=== PATIENT | female | born 1960 | race Caucasian/White ===

== ENCOUNTER 2024-04-24 16:11 | Inpatient (IN) ==
--- OUTSIDE RECORDS SUMMARY | 2024-04-24 16:17 | External Medical Summary | Summary of Care ---
Author Name Unknown Organization [facility] Address [address] [place] [address] Phone [phone] Care Team Providers Care Geothermal Sheet Metal Worker Name Role Phone Jaylen Mcwilliams MD Primary Care Provider [phone]- [phone] Reason for Visit * Reason Comments Outpatient Testing Encounter Details Date Type Department Care Team (Late st Contact Info) Description 04/08/2024 10:30 AM EDT Laboratory Laboratory Patient Service [address] [address] [address] [employer] Other*[id number]; Dyslipidemia, goal LDL below 100 Allergies No known active allergiesdocumented as of this encounter (statuses as of 04/08/2024) Medications Medication Sig Dispensed Refills Start Date End Date Status Multiple Vitamin (MULTI VITAMIN DAILY) TABS Take by mouth. 11/09/2013 Active Lisinopril 40 MG Oral Tablet TAKE 1 TABLET BY MOUTH IN THE MORNING AND AT BEDTIME 180 Tablet 2 10/09/2023 Active hydroCHLOROthiazide 25 MG Oral Tablet (Hydrodiuril) Take 1 tablet by mouth once daily 90 Tablet 2 10/27/2023 Active Metoprolol Tartrate 25 MG Oral Tablet (Lopressor) Take 1 tablet by mouth twice daily 180 Tablet 2 10/27/2023 Active Citalopram Hydrobromide 40 MG Oral Tablet (CeleXA) Take 1 tablet by mouth in the evening 90 Tablet 2 10/27/2023 Active Rosuvastatin Calcium 20 MG Oral Tablet (Crestor)Indications: Dyslipidemia, goal LDL below 100 Take 1 Tablet by mouth in the morning. 90 Tablet 3 01/09/2024 Active Famotidine 20 MG Oral Tablet (Pepcid) Take 1 Tablet by mouth in the morning. 90 Tablet 3 03/16/2024 Active documented as of this encounter (statuses as of 04/08/2024) Active Problems Problem Noted Date Diagnosed Date Moderate episode of recurrent major depressive d isorder 09/04/2022 Mixed hyperlipidemia 03/07/2021 Mild episode of recurrent major depressive disor coleman 10/27/2019 Essential hypertension with goal blood pressure less than 140/90 10/27/2019 Obesity, Class II, BMI 35-39.9, isolated (see ac tual BMI) 03/18/2019 LALIT (generalized anxiety disorder) 03/18/2019 Gastroesophageal reflux disease without esophagi tis 04/08/2018 documented as of this encounter (statuses as of 04/08/2024) Resolved Problems Problem Noted Date Diagnosed Date Resolved Date Closed nondisplaced fracture of proximal phalanx of lesser toe of right foot 09/04/2022 12/0 02/2023 Essential hypertension with goal blood pressure less than 130/80 03/18/2019 10/27/2019 Family history of ischemic heart disease 07/24/2015 03/18/2019 documented as of this encounter (statuses as of 04/08/2024) Immunizations Name Administration Dates Next Due COVID-19 mRNA, LNP-s, No Pre serve, 2-Dose Series (Genomic Expression) 10/30/2020,10/09/2020 COVID-19, MRNA-LNP, 23-24, P F, 30 MCG/0.3 mL, 12 YRS AND ABOVE, [facility] 05/12/2023 Seasonal Influenza Virus Vac cine, Unspecified Formulation 05/02/2020 Seasonal Influenza, PF, 6 M & above, IM , (FluLaval or Fluzone) 06/10/2023,05/02/2020 TDAP (age 10 and older)(Boostrix) 09/09/2023(Def erred: Patient Refused) Zoster Vaccine Recombinant (Shingrix) 01/01/2021 ,05/02/2020 documented as of this encounter Social History Tobacco Use Types Packs/Day Years Used Date Smoking Tobacco: Never Smokeless Tobacco: Never Alcohol Use Standard Drinks/Week Comments Yes 0 (1 standard drink = 0.6 oz pur e alcohol) 2 drinks every other week PHQ-2 Answer Date Recorded PHQ Adult Total Score 11 03/25/2024 Hunger Vital Sign Answer Date Recorded Within the past 12 months, y ou worried that your food would run out before you got the money to buy more. Never true 09/23/19 24 Within the past 12 months, t he food you bought just didn't last and you didn't have money to get more. Never true 09/23/2023 Childcare Answer Date Recorded Do you feel overwhelmed with taking care of a child, family member or friend? No 09/23/2023 Does your family need help f inding childcare? (Household - for ages 0-17 years) Not on file 09/23/2023 Clothing Answer Date Recorded Have you been unable to get clothing when it was really needed? No 09/23/2023 Is your family able to get c lothes or diapers when needed? (Household - for ages 0-17 years) Not on file 09/23/2023 Personal Safety Answer Date Recorded Do you feel unsafe or have concerns for your saf ety? No 09/23/2023 Do you have concerns for you r family's safety? (Household - for ages 0-17 years) Not on file 09/23/2023 Utilities Answer Date Recorded Do you have trouble paying y our heating, water, or electric bill? No 09/23/2023 Is your family able to pay t he heat, water, or electric bill? (Household - for ages 0-17 years) Not on file 09/23/2023 Does your family have access to good internet? (Household - for ages 0-17 years) Not on file 09/23/2023 Employment Status Answer Date Recorded Are you unemployed or without regular income? No 09/23/2023 Does the household have a re gular source of income? (Household - for ages 0-17 years) Not on file 09/23/2023 Social Connections Answer Date Recorded How often do you feel lonely or isolated from those around you? Sometimes 09/23/2023 Financial Resource Strain Answer Date R ecorded Do you have any trouble payi ng for your medications, or do you think you might in the future? No 09/23/2023 Does your family have troubl e paying for medicine? (Household - for ages 0-17 years) Not on file 09/23/2023 Transportation Needs Answer Date Record ed READ ONLY Do you have troubl e getting a ride to medical visits or work? Never True 09/23/2023 Does your family have a hard time getting a ride to doctors visits? (Household - for ages 0-17 years) Not on file 09/23/2023 Has lack of transportation k ept you from medical appointments, meetings, work, or from getting things needed for daily living? Check all that apply. (Adult - for ages 18 years and over) Not on file 09/23/2023 Do you (or your family) have trouble finding or paying for a ride (transportation)? (Household - for ages 0-17 years) Not on file 09/23/2023 Housing Stability Answer Date Recorded Do you currently live in a s helter or have no steady place to sleep at night? No 09/23/2023 READ ONLY Do you think you a re at risk of becoming homeless? No 09/23/2023 Does your family worry about paying for your home or becoming homeless? (Household - for ages 0-17 years) Not on file 0 09/23/2023 Are you homeless or worried that you might be in the future? (Adult - for ages 18 years and over) Not on file Are you (or your family) alisson eless or worried that you might be in the future? (Household - for ages 0-17 years) Not on file Food Insecurity Answer Date Recorded Do you need food for this week? No 09/23/2023 Are you able to get enough f ood for your family? (Household - for ages 0-17 years) Not on file 09/23/2023 Does your family need food t his week? (Household - for ages 0-17 years) Not on file 09/23/2023 Do you always have enough fo od for your family? (Household - for ages 0-17 years) Not on file 09/23/2023 Sex and Gender Information Value Date Recorded Sex Assigned at Female 05/20/2023 10:43 AM EDT Gender Identity Female 05/20/2023 10:43 AM EDT Sexual Orientation Lesbian 05/20/2023 10 :43 AM EDT Job Start Date Occupation Industry Not on file Not on file Not on file documented as of this encounter Plan of Treatment Upcoming Encounters Date Type Department Care Team (Late st Contact Info) Description 04/08/2024 1:15 PM EDT Immunization [facility] [address] [place] [address] [place], Covid[facility] [address] [place] [address] 04/22/2024 3:00 PM EDT Telemedicine Psychology [facility] [address] [place] [phone] Fely Siddiqui LCSW [address] [place] [address] 04/29/2024 9:00 AM EDT Telemedicine Psychology [place] [place] [address] [place] [address] Fely Siddiqui LCSW [address] [place] [address] 05/06/2024 9:00 AM EDT Telemedicine Psychology [facility] [place] [address] [place] [phone] Fely Siddiqui LCSW [address] [place] [phone] 05/18/2024 9:00 AM EDT Telemedicine Psychology [facility] [place] [address] [place] [address] Fely Siddiqui LCSW [address] [place] [address] 06/01/2024 11:00 AM EST Appointment Radiology, [address] [address] 06/10/2024 9:20 AM EST Office Visit Dermatology [facility] [address] [place] [address] Mak Hazel PA-C [address] [place] [address] 06/14/2024 10:30 AM EST Office Visit Cardiology, [facility] [address] [place] [address] Guerita Morris PA-C [address] [place] [address] 06/22/2024 9:20 AM EST Office Visit Family [facility], [address] [address] Jaylen Mcwilliams MD [address] [place] [address] 08/05/2024 9:00 AM EST Office Visit Cardiology, [facility] [address] [place] [place] [address] Guerita Morris PA-C [address] [place] [address] 09/21/2024 8:00 AM EST Office Visit [address] [address] Jaylen Mcwilliams MD [address] [place] [address] 11/30/2024 1:10 PM EDT Office Visit Optometry, [address] [address] [place], Barrett Blank OD [address] [place] [address] 02/08/2025 9:00 AM EDT Nurse Only Ancillary [facility] [address] [place] [phone] [place], Nurse Annual Wellness [address] [address] Pending Results Name Type Priority Associated Diagnoses Date /Time MYCODE SUBSEQUENT ADULT Lab Routine [employer] Other*[id number] 04/08/2024 10:25 AM EDT LIPID PANEL WITH DIRECT LDL IF TG IS HIGH Lab Routine Dyslipidemia, goal LDL below 100 04/08/2024 10:25 AM EDT HEPATIC FUNCTION PANEL Lab Routine Dyslipidemia, goal LDL below 100 04/08/2024 10:25 AM EDT MYCODE SST1 Lab Routine [employer] Other*[id number] 04/08/2024 10:25 AM EDT MYCODE SST2 Lab Routine [employer] Other*[id number] 04/08/2024 10:25 AM EDT Health Maintenance Due Date Last Done Comments DTap/Tdap Vaccines (1 - Tdap) 1977 Cologuard 2003 Fecal Occult Blood Test 2003 Sigmoidoscopy 2003 Pneumococcal Vaccine: 65+ Years (1 of 1 - PCV) 2023 COVID-19 Vaccine ( season) 2024 05/12/2023, 11/05/2021, 05/15/2021, Additional history exists Influenza Vaccine (FLU shot) (#1) 2024 06/10/2023, 05/02/2020, 05/02/2020 Mammogram 05/29/2024 05/29/2023, 04/20, 04/23/2022, Additional history exists Colonoscopy 07/08/2024 07/08/2019, 10/14/2011 Colorectal Cancer Screening 07/08/2024 GFR 12/25/2024 12/26/2023, 06/21, 06/04/2022, Additional history exists Adult Wellness Visit 02/04/2025 02/05/2024 Depression Monitoring 04/06/2025 04/06/2024 , 03/25/2024, 03/09/2024, Additional history exists Albumin/Creatinine Ratio 06/04/2025 06/04/2022 Diabetes Screening 12/25/2026 12/26/2023, 1 , 06/04/2022, Additional history exists Lipid Panel 12/25/2028 12/26/2023, 06/21, 06/04/2022, Additional history exists DXA Scan 07/18/2033 07/18/2023 RETIRED - COLONOSCOPY-EVERY 5 YRS AGES 18-100 Discontinued 07/08/2019, 10/14/2011 Zoster Vaccines Completed 01/01/2021, 05/02/2020 HPV (Gardasil) Vaccine Aged Out No lo nger eligible based on patient's age to complete this topic Hepatitis B Vaccine Aged Out No longe r eligible based on patient's age to complete this topic MENINGOCOCCAL (MENACTRA/MENVEO) Aged Out No longer eligible based on patient's age to complete this topic documented as of this encounter Medical Devices Not on filedocumented as of this encounter Visit Diagnoses Diagnosis [employer] Other*[id number] Dyslipidemia, goal LDL below 100 Other and unspecified hyperlipidemia Screening mammogram for breast cancer documented in this encounter Care Teams Geothermal Sheet Metal Worker Relationship Specialty Start Date End Date Jaylen Mcwilliams MD [address] [place] [address] PCP - General Family Medicine 03/05/23 documented as of this encounter
--- OUTSIDE RECORDS SUMMARY | 2024-04-24 16:17 | External Medical Summary | Summary of Care ---
Author Name Unknown Organization [facility] Address [address] [facility] [place] [address] Phone [phone] Care Team Providers Care Haul Cane Brakeman Name Role Phone Jaylen Mcwilliams MD Primary Care Provider [phone]- [phone] Reason for Visit * Reason Onset Date Comments Order Request 03/08/2024 Encounter Details Date Type Department Care Team (Late st Contact Info) Description 03/08/2024 Telephone Pulmonary Medicine, [facility] [address] [place] [address] Jeannine Pena, [address] [facility] [place] [address] Order Request Allergies No known active allergiesdocumented as of this encounter (statuses as of 03/17/2024) Medications Medication Sig Dispensed Refills Start Date End Date Status Multiple Vitamin (MULTI VITAMIN DAILY) TABS Take by mouth. 11/09/2013 Active Lisinopril 40 MG Oral Tablet TAKE 1 TABLET BY MOUTH IN THE MORNING AND AT BEDTIME 180 Tablet 2 10/09/2023 Active hydroCHLOROthiazid e 25 MG Oral Tablet (Hydrodiuril) Take 1 tablet by mouth once daily 90 Tablet 2 10/27/2023 Active Metoprolol Tartrate 25 MG Oral Tablet (Lopressor) Take 1 tablet by mouth twice daily 180 Tablet 2 10/27/2023 Active Citalopram Hydrobromide 40 MG Oral Tablet (CeleXA) Take 1 tablet by mouth in the evening 90 Tablet 2 10/27/2023 Active Rosuvastatin Calcium 20 MG Oral Tablet (Crestor)Indicatio ns:Dyslipidemia, goal LDL below 100 Take 1 Tablet by mouth in the morning. 90 Tablet 3 01/09/2024 Active Aspirin 81 MG Oral Tablet Delayed Release Take 1 Tablet by mouth in the morning. 11/09/2013 4 Discontinued documented as of this encounter (statuses as of 03/17/2024) Active Problems Problem Noted Date Diagnosed Date [...] as of this encounter (statuses as of 03/17/2024) Resolved Problems Problem Noted Date Diagnosed Date Resolved Date Closed nondisplaced fracture of proximal phalanx of lesser toe of right foot 09/04/2022 12/0 02/2023 Essential hypertension with goal blood pressure less than 130/80 03/18/2019 10/27/2019 Family history of ischemic heart disease 07/24/2015 03/18/2019 documented as of this encounter (statuses as of 03/17/2024) Immunizations Name Administration Dates Next Due COVID-19 mRNA, LNP-s, No Pre serve, 2-Dose Series (Xinguodu) 10/30/2020,10/09/2020 COVID-19, MRNA-LNP, 23-24, P F, 30 MCG/0.3 mL, 12 YRS AND ABOVE, IM ([facility]) 05/12/2023 Seasonal Influenza Virus Vac cine, Unspecified [...] Answer Date Recorded PHQ Adult Total Score 5 03/09/2024 Hunger Vital Sign Answer Date Recorded Within [...] on file documented as of this encounter Miscellaneous Notes * Telephone Encounter - Marisol Amin OSA - 03/17/2024 8:10 PM EDT Refaxed office note, orders, and demographics to [facility]. * Telephone Encounter - Lorena Crowder OSA - 03/17/2024 3:42 PM EDT Patient call in stating that [facility] Has not receive patient orders for her sleep study . She ask if this can be fax again to them. Please advice Thank you scheduling services * Telephone Encounter - Annette Church OSA - 03/08/2024 1:11 PM EDT Faxed demographics, Orders, and progress notes to [facility] Waiting to hear back about an appt documented in this encounter Plan of Treatment Upcoming Encounters Date Type Department Care Team (Late st Contact Info) Description 03/25/2024 9:00 AM EDT Telemedicine Psychology [facility] Core[facility] [address] [place] [phone] Fely Siddiqui LCSW [address] [facility] [place] [address] 03/31/2024 8:30 AM EDT Office Visit Cardiology, [facility] 132 [facility] [place] [address] Guerita Morris PA-C [address] [place] [address] 04/06/2024 11:00 AM EDT Telemedicine Psychology [facility] [address] [place] [phone] Fely Siddiqui, BILINGUAL ADMINISTRATIVE ASSISTANT [address] [place], [place] [phone] 06/01/2024 11:00 AM EST Appointment Radiology, [address] [address] 06/10/2024 9:20 AM EST Office Visit Dermatology [facility] [address] [place] [address] Mak Hazel PA-C [address] [place] [address] 06/22/2024 9:20 AM EST Office Visit [address] [address] Jaylen Mcwilliams MD [address] [place] [address] 09/21/2024 8:00 AM EST Office Visit [address] [address] Jaylen Mcwilliams MD [address] [place] [address] 11/30/2024 1:10 PM EDT Office Visit Optometry, [place] [address] [place], [place] [phone] Barrett Kulkarni Jr., OD [address] [place] [address] 02/08/2025 9:00 AM EDT Nurse Only Ancillary [facility] [address] [place] [address] Jessy Nurse Annual Wellness [facility] [address] [place] [address], [place] [address] Health Maintenance Due Date Last Done Comments DTap/Tdap Vaccines (1 - Tdap) 1977 Cologuard 2003 Fecal Occult Blood Test 2003 Sigmoidoscopy 2003 Pneumococcal Vaccine: 65+ Years (1 of 1 - PCV) 2023 COVID-19 Vaccine ( - 2022- season) 2023 05/12/2023, 11/05/2021, 05/15/2021, Additional history exists Influenza Vaccine (FLU shot) (#1) 2024 06/10/2023, 05/02/2020, 05/02/2020 Mammogram 05/29/2024 05/29/2023, 04/20, 04/23/2022, Additional history exists Colonoscopy 07/08/2024 07/08/2019, 10/14/2011 Colorectal Cancer Screening 07/08/2024 GFR 12/25/2024 12/26/2023, 06/21, 06/04/2022, Additional history exists Adult Wellness Visit 02/04/2025 02/05/2024 Depression Monitoring 03/09/2025 03/09/2024 , 02/17/2024, 02/05/2024, Additional history exists Albumin/Creatinine Ratio 06/04/2025 06/04/2022 [...] Not on filedocumented as of this encounter Care Teams Haul Cane Brakeman Relationship Specialty Start Date End Date Jaylen Mcwilliams MD [address] [place] [address] PCP - General Family Medicine 03/05/23 documented as of this encounter
--- OUTSIDE RECORDS SUMMARY | 2024-04-24 16:17 | External Medical Summary ---
Author Name Unknown Address Unknown Organization K01:[facility] - [address] [place] [address] Laboratory Report Ordering Provider Test Date Status TASHA CASTELAN 04/08/2024 10:25:05 Final Observation Date Value Abnormality Reference (Units ) Status MYCODE SPECIMEN-SST 04/08/2024 10:25:05 Freezing of extracted DNA, whole blood and/or serum. Final Performing Location LAB[facility]ATORY [facility] - [address] [place] [address]
--- OUTSIDE RECORDS SUMMARY | 2024-04-24 16:17 | External Medical Summary | Summary of Care ---
Author Name Unknown Organization [facility] Address [address] [place] [address] Phone [phone] Care Team Providers Care Hide Stretcher Hand Name Role Phone Jaylen Mcwilliams MD Primary Care Provider [phone]- [phone] Reason for Visit * Reason Comments Follow Up Encounter Details Date Type Department Care Team (Late st Contact Info) Description 04/06/2024 11:00 AM EDT Telemedicine Psychology Cameron Coreas [address] [place] [address] Fely Siddiqui, MEDICAL APPOINTMENT CLERK [address] [facility] [place] [address] Adjustment disorder with mixed anxiety and depressed mood* Allergies No known active allergiesdocumented as of this encounter (statuses as of 04/06/2024) Medications Medication Sig Dispensed Refills Start Date [...] as of this encounter (statuses as of 04/06/2024) Active Problems Problem Noted Date Diagnosed Date Moderate episode of recurrent major depressive d isorder 09/04/2022 Mixed hyperlipidemia 03/07/2021 Mild episode of recurrent major depressive disor coleman 10/27/2019 Essential hypertension with goal blood pressure less than 140/90 10/27/2019 Obesity, Class II, BMI 35-39.9, isolated (see ac tual BMI) 03/18/2019 TONY (generalized anxiety disorder) 03/18/2019 Gastroesophageal reflux disease without esophagi tis 04/08/2018 documented as of this encounter (statuses as of 04/06/2024) Resolved Problems Problem Noted Date Diagnosed Date Resolved Date Closed nondisplaced fracture of proximal phalanx of lesser toe of right foot 09/04/2022 12/0 02/2023 Essential hypertension with goal blood pressure less than 130/80 03/18/2019 10/27/2019 Family history of ischemic heart disease 07/24/2015 03/18/2019 documented as of this encounter (statuses as of 04/06/2024) Immunizations Name Administration Dates Next Due COVID-19 mRNA, LNP-s, No Pre serve, 2-Dose Series ([employer]) 10/30/2020,10/09/2020 COVID-19, MRNA-LNP, 23-24, P F, 30 MCG/0.3 mL, 12 YRS AND ABOVE, IM ([facility]) 05/12/2023 Seasonal Influenza Virus Vac cine, Unspecified [...] on file documented as of this encounter Progress Notes * Fely Siddiquis, MEDICAL APPOINTMENT CLERK - 04/06/2024 10:54 AM EDT Patient location: HOME. I was not in a hospital or clinic location. After connecting through televideo, patient was verified with two unique identifiers. Patient (or authorized legal authorization representative) was then informed that this was a Telemedicine visit and being conducted confidentially over secure lines. Methods to assure confidentiality were taken. Patient acknowledged consent and understanding of privacy and security of the Telemedicine visit. The patient agreed to participate. My office door was closed. No one else was in the room with me. I informed the patient that I have reviewed their record in [facility] and presented the opportunity for them to ask any questions regarding the visit today. The patient agreed to participate. Provider reviewed elements of Outpatient Services Description including limits of confidentiality, how to contact the department, risks and benefits of treatment and consent for treatment. Start Time: 11 am Stop Time: 11:54 Total direct [id number] time: 54 min Confirm patient's location (and address if different from the home address documented in [facility]) at the time of this appointment: home ADULT THERAPY PROGRESS NOTE Psychology Cameron Coreas [address] [place] [address] 04/06/2024 10:54 AM TYPE OF VISIT: Individual DIAGNOSIS: Adjustment DO REASON FOR FOLLOW-UP: Individual therapy Session #: 9 SESSION FOCUS: recovering from covid infection SESSION SUMMARY/NOTES: During this session, Deb discussed that she has been caring for self with having covid. She shared she has been reading through [employer] and finding it helpful. Deb talked about wanting to move forward with re-connecting with her family relationships. She was helped to explore her role in that and keeping healthy boundaries. Patient was engaged with supportive techniques such as reassurance, normalization, encouragement, validation and reflective listening.A therapeutic holding environment to allow for optimal processing of emotions was maintained throughout which allowed patient to discuss ongoing stressors. PROGRESS TOWARDS GOALS: reading self help; talking with mother daily Objective Measures: Myc Visit Accident Related Question Question 04/06/2024 9:49 AM EDT - Filed by Patient Is this visit related to an accident? (i.e work, motor vehicle) No Tony-7 Question 04/06/2024 11:04 AM EDT - Filed by Fely Siddiqui LCSW Over the last 2 weeks, how often have you been bothered by the following problems? Feeling nervous, anxious, or on edge Several days Not being able to stop or control worrying Several days Worrying too much about different things Several days Trouble relaxing Not at all Being so restless that is hard to sit still Not at all Becoming easily annoyed or irritable Several days Feeling afraid as if something awful might happen Not at all Total score of all questions (range: 0 - 21) 4 (Minimal) Phq9-Depression Question 04/06/2024 11:06 AM EDT - Filed by Fely Siddiqui LCSW Over the last two weeks, how often have you been bothered by any of the following problems? Little interest or pleasure in doing things Several days Feeling down, depressed or hopeless Several days Over the last two weeks, how often have you been bothered by any of the following problems? Trouble falling or staying asleep, or sleeping too much Several days Feeling tired or having little energy Nearly everyday Poor appetite or overeating Several days Feeling bad about yourself - or that you are a failure, or have let yourself or your family down Several days Trouble concentrating on things, such as reading the newspaper or watching television Nearly everyday Moving or speaking so slowly that other people could have noticed. Or the opposite - being so fidgety or restless that you have been moving around a lot more than usual Several days Thoughts that you would be better off , or of hurting yourself Not at all Question 1 score (range: 0 - 3) 1 Question 2 score (range: 0 - 3) 1 Question 3 score (range: 0 - 3) 1 Question 4 score (range: 0 - 3) 3 Question 5 score (range: 0 - 3) 1 Question 6 score (range: 0 - 3) 1 Question 7 score (range: 0 - 3) 3 Question 8 score (range: 0 - 3) 1 Question 9 score (range: 0 - 3) 0 Sum of all PHQ9 questions. (range: 0 - 27) 12 (Moderate Depression) C-Ssrs [id number] Last Contact Question 04/06/2024 11:06 AM EDT - Filed by Fely Siddiqui LCSW Have you wished you were or wished you could go to sleep and not wake up? No Have you actually had any thoughts of killing yourself? No Have you done anything, started to do anything, or prepared to do anything to end your life? No INTERVENTION: Cognitive Behavioral Therapy (CBT) and Supportive Therapy PATIENT EDUCATION: Verbal & written MENTAL STATUS AND BEHAVIORAL OBSERVATIONS: Appearance: within normal limits Behavior: appropriate, cooperative, and pleasant Speech: normal pitch, normal rate, and normal volume Mood: good Affect: appropriate Thought Process: within normal limits Thought Content: Delusions: No Hallucinations: No Obsessions: No Homicidal: No Suicidal: No Sensorium: alert and oriented to person, place, time and situation Cognition: grossly intact Insight: fair Judgment: fair Suicide/Homicidal Assessment Level of Risk No Risk Identified Protective Factors Hopeful attitude and or beliefs;Access to appropriate services;Identifies reasons for living;Help-Seeking Behaviors;Cares about job/school Risk Factors History of Depression;Age;History of Trauma;Anxiety Crisis Plan: see Crisis Plan in Treatment Plan Jitendra Safety Plan Creation Date: 03/09/24 Last Update Date: 03/25/24 Step 1: Warning signs: Warning Signs emotional cry walk away Step 2: Internal coping strategies - Things I can do to take my mind off my problems without contacting another person: Strategies read go out in sun relax/avoid breathing Step 3: People and social settings that provide distraction: Places outdoors Step 4: People whom I can ask for help during a crisis: Name Contact Information friend- Opal spouse Howard Step 5: Professionals or agencies I can contact during a crisis: Clinician/Agency Name Phone Emergency Contact PCP [phone] Counselor [phone] Local Emergency Department Emergency Department Address Emergency Department Phone [facility] Suicide Prevention Lifeline Phone: Call or Text 714 Crisis Text Line: Text HOME to 730464 Step 6: Making the environment safer (plan for lethal means safety): Did not identify any lethal methods Optional: What is most important to me and worth living for?: Me; my future Jitendra Safety Plan. Yudy Mxi and Gabe Carreon. Used with permission of the authors. FOLLOW-UP PLAN: Return: 2 weeks Action Plan: 1. Continue Individual Therapy 2. Continue medication management with PCP. Treatment plan reviewed with the patient. Patient voices understanding and concurs with plan. Review due 06/02/24 Fely Siddiqui LCSW Division of Psychiatry & Behavioral Medicine [facility] [phone] documented in this encounter Plan of Treatment Upcoming Encounters Date Type Department Care Team (Late st Contact Info) Description 04/08/2024 1:15 PM EDT Immunization [facility] Singh Galo [address] [place] [address] Tete Galo [facility] [address] [place] [address] 04/22/2024 3:00 PM EDT Telemedicine Psychology Cameron Coreas [address] [place] [address] Fely Siddiqui LCSW [address] [place] [address] 04/29/2024 9:00 AM EDT Telemedicine Psychology Cameron Coreas [address] [place] [address] Fely Siddiqui LCSW [address] [place] [address] 05/06/2024 9:00 AM EDT Telemedicine Psychology Cameron Coreas [address] [place] [address] Fely Siddiqui LCSW 9 [place] [address] 05/18/2024 9:00 AM EDT Telemedicine Psychology [facility], [place] [address] [place] [address] Fely Siddiqui, MEDICAL APPOINTMENT CLERK [address] [place] [address] 06/01/2024 11:00 AM EST Appointment Radiology, [address] [address] 06/10/2024 9:20 AM EST Office Visit Dermatology [address] [address] Mak Hazel PA-C [address] [place] [address] 06/22/2024 9:20 AM EST Office Visit [address] [address] Jaylen Mcwilliams MD [address] [place] [address] 09/21/2024 8:00 AM EST Office Visit [address] [address] Jaylen Mcwilliams MD [address] [place] [address] 11/30/2024 1:10 PM EDT Office Visit Optometry, [place] [address] [place], [place] [id number] Barrett Kulkarni Jr., OD [address] [place], [place] [id number] 02/08/2025 9:00 AM EDT Nurse Only Ancillary [address] [address] Jessy, Nurse [address] [place] [address] Health Maintenance Due Date Last Done Comments [...] as of this encounter Visit Diagnoses Diagnosis Adjustment disorder with mixed anxiety and depressed mood- Primary Screening mammogram for breast cancer documented in this encounter Care Teams Hide Stretcher Hand Relationship Specialty Start Date End Date Jaylen Mcwilliams MD [address] [place] [address] PCP - General Family Medicine 03/05/23 documented as of this encounter
--- OUTSIDE RECORDS SUMMARY | 2024-04-24 16:17 | External Medical Summary ---
Author Name Unknown Address Unknown Organization K01:[facility] - [address] [facility] [place] [address] Laboratory Report Ordering Provider Test Date Status LORIE MCCRACKEN 04/08/2024 10:25:05 Final Observation Date Value Abnormality Reference (Units ) Status Triglyceride 04/08/2024 10:25:05 87 <=174 ( mg/dL) Final Triglyceride Reference Range s (mg/dL):
<150 Acceptable
150-174 Borderline high
175-499 High
>=500 Very high Cholesterol 04/08/2024 10:25:05 126 <200 (mg /dL) Final Total Cholesterol Reference Ranges (mg/dL):
<200 Desirable
200-239 Borderline high
>=240 High HDL 04/08/2024 10:25:05 43 Below low normal >49 (mg/dL) Final HDL Cholesterol Reference Ra nges (mg/dL):
>=60 High (Desirable)
<50 Low (Undesirable) For Females
<40 Low (Undesirable) For Males NON-HDL CHOLESTEROL 04/08/2024 10:25:05 83 <=159 (mg/dL) Final Non-HDL Cholesterol Referenc e Range (mg/dL):
<100 Target level for high risk ASCVD patient
<130 Optimal for general population
130-159 Near optimal for general population
160-189 Borderline High
190-219 High
>=220 Very High LDL, (calculated) 04/08/2024 10:25:05 66 <= 129 (mg/dL) Final LDL Cholesterol Reference Ra nges (mg/dL):
<70 Target level for high risk ASCVD patient
<100 Optimal for general population
100-129 Near optimal for general population
130-159 Borderline high
160-189 High
>=190 Very high Performing Location LABORATORY [facility] - [address] [place] [address]
--- OUTSIDE RECORDS SUMMARY | 2024-04-24 16:17 | External Medical Summary | Summary of Care ---
Author Name Unknown Organization [facility] Address [address] [facility] [place] [address] Phone [phone] Care Team Providers Care Structural Iron Worker Name Role Phone Jaylen Mcwilliams MD Primary Care Provider +1- [phone] Reason for Visit * Reason Comments Outpatient Testing Encounter Details Date Type Department Care Team (Late st Contact Info) Description 04/08/2024 1:30 PM EDT Laboratory Laboratory, [facility] [address] [facility] [place] [address] [facility] [address] [facility] [place] [address] Arrived Allergies No known active allergiesdocumented as of [...] mRNA, LNP-s, No Pre serve, 2-Dose Series ([employer]) 10/30/2020,10/09/2020 COVID-19, MRNA-LNP, 23-24, P F, 30 MCG/0.3 mL, 12 YRS AND ABOVE, IM ([employer]) 05/12/2023 COVID-19, MRNA-LNP, 24-25, P R, 30MCG/0.3ML, IM, 12YRS AND ABOVE ([employer]) 04/08/2024 Seasonal Influenza Virus Vac cine, Unspecified Formulation [...] Care Team (Late st Contact Info) Description 04/22/2024 3:00 PM EDT Telemedicine Psychology [place] Coreas [address] [place] [phone] Fely Siddiqui LCSW [address] [place] [address] 04/29/2024 9:00 AM EDT Telemedicine Psychology [place] Coreas [address] [place] [address] Fely Siddiqui LCSW [address] [place] [address] 05/06/2024 9:00 AM EDT Telemedicine Psychology [place] Coreas [address] [place] [phone] Fely Siddiqui LCSW [address] [place] [address] 05/18/2024 9:00 AM EDT Telemedicine Psychology [place] Coreas [address] [place] [address] Fely Siddiqui LCSW [address] [place] [address] 06/01/2024 11:00 AM EST Appointment Radiology, [facility] [address] [place] [address] 06/10/2024 9:20 AM EST Office Visit Dermatology [facility] [address] [place] [address] Mak Hazel PA-C [address] [place] [address] 06/14/2024 10:30 AM EST Office Visit Cardiology, [facility] [address] [facility] [place] [address] Guerita Morris PA-C [address] [facility] [place] [address] 06/22/2024 9:20 AM EST Office Visit [address] [address] Jaylen Mcwilliams MD [address] [place] [address] 08/05/2024 9:00 AM EST Office Visit Cardiology, [facility] [address] [place] [address] Guerita Morris PA-C [address] [place] [address] 09/21/2024 8:00 AM EST Office Visit [address] [address] Jaylen Mcwilliams MD [address] [place] [address] 11/30/2024 1:10 PM EDT Office Visit Optometry, [address] [address] Barrett Kulkarni Jr., OD [address] [place], [place] [phone] 02/08/2025 9:00 AM EDT Nurse Only Ancillary [facility] [address] [place] [phone] Havecelina, Nurse Annual Wellness Lock [address] [place] [address] Health Maintenance Due Date Last Done Comments DTap/Tdap Vaccines (1 - Tdap) 1977 Cologuard 2003 Fecal Occult Blood Test 2003 Sigmoidoscopy 2003 Pneumococcal Vaccine: 65+ Years (1 of 1 - PCV) 2023 Influenza Vaccine (FLU shot) (#1) 2024 06/10/2023, [...] 07/08/2019, 10/14/2011 Zoster Vaccines Completed 01/01/2021, 05/02/2020 COVID-19 Vaccine Completed 04/08/2024, , 11/05/2021, Additional history exists HPV (Gardasil) Vaccine Aged Out No lo [...] filedocumented as of this encounter Care Teams Structural Iron Worker Relationship Specialty Start Date End Date Jaylen Mcwilliams MD [address] [place] [address] PCP - General Family Medicine 03/05/23 documented as of this encounter
--- OUTSIDE RECORDS SUMMARY | 2024-04-24 16:17 | External Medical Summary | Summary of Care ---
Author Name Unknown Organization [facility] Address [address] [place] [address] Phone [phone] Care Team Providers Care Aligner Barrel And Receiver Name Role Phone Jaylen Mcwilliams MD Primary Care Provider [phone]- [phone] Reason for Visit * Reason Comments Follow Up Encounter Details Date Type Department Care Team (Late st Contact Info) Description 03/25/2024 9:00 AM EDT Telemedicine Psychology Cameron Coreas [address] [place] [address] Fely Siddiqui, BALDOMERO [address] [place] [address] Adjustment disorder with mixed anxiety and depressed mood* Allergies No known active allergiesdocumented as of this encounter (statuses as of 03/25/2024) Medications Medication Sig Dispensed Refills Start Date [...] as of this encounter (statuses as of 03/25/2024) Active Problems Problem Noted Date Diagnosed Date [...] as of this encounter (statuses as of 03/25/2024) Resolved Problems Problem Noted Date Diagnosed Date Resolved Date Closed nondisplaced fracture of proximal phalanx of lesser toe of right foot 09/04/2022 12/0 02/2023 Essential hypertension with goal blood pressure less than 130/80 03/18/2019 10/27/2019 Family history of ischemic heart disease 07/24/2015 03/18/2019 documented as of this encounter (statuses as of 03/25/2024) Immunizations Name Administration Dates Next Due COVID-19 mRNA, LNP-s, No Pre serve, 2-Dose Series ([employer]) 10/30/2020,10/09/2020 COVID-19, MRNA-LNP, 23-24, P F, 30 MCG/0.3 mL, 12 YRS AND ABOVE, IM ([facility]) 05/12/2023 Seasonal Influenza Virus Vac cine, Unspecified [...] this encounter Progress Notes * Fely Siddiquis, LIGHT OUT EXAMINER - 03/25/2024 8:57 AM EDT Patient location: HOME. I was not in a hospital or clinic location. After connecting through [facility], patient was verified with two unique identifiers. Patient (or authorized legal patient service representative) was then informed that this was [...] that I have reviewed their record in [facility] and presented the opportunity for them to ask any questions regarding the visit today. The patient agreed to participate. Provider reviewed elements of Outpatient Services Description including limits of confidentiality, how to contact the department, risks and benefits of treatment and consent for treatment. 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 She talked about taking time for herself and learning how to be in life versus doing. She was taught how to take a breathe, ground herself and tune in to her emotions and thoughts in order to learn how to manage them. Patient was engaged with supportive techniques such as reassurance, normalization, encouragement,validation, teaching, and reflective listening. A therapeutic holding environment to allow for optimal processing of emotions was maintained throughout which allowed patient to discuss ongoing stressors. PROGRESS TOWARDS GOALS: taking time for herself Objective Measures: Myc Visit Accident Related Question Question 03/25/2024 8:24 AM EDT - Filed by Patient Is this visit related to an accident? (i.e work, motor vehicle) No Tony-7 Question 03/25/2024 9:02 AM EDT - Filed by Fely Siddiqui [...] at all Becoming easily annoyed or irritable Nearly every day Feeling afraid as if something awful might happen Not at all Total score of all questions (range: 0 - 21) 6 (Mild) Phq9-Depression Question 03/25/2024 9:04 AM EDT - Filed by Fely Siddiqui LCSW Over the last two weeks, how often have you been bothered by any of the following problems? Little interest or pleasure in doing things Not at all Feeling down, depressed or hopeless Nearly everyday Over the last two weeks, how often have you been bothered by any of the following problems? Trouble falling or staying asleep, or sleeping too much Several days Feeling tired or having little energy Nearly everyday Poor appetite or overeating Not at all Feeling bad about yourself - or that [...] moving around a lot more than usual Not at all Thoughts that you would be better off , or of hurting yourself Not at all Question 1 score (range: 0 - 3) 0 Question 2 score (range: 0 - 3) 3 Question 3 score (range: 0 - 3) 1 Question 4 score (range: 0 - 3) 3 Question 5 score (range: 0 - 3) 0 Question 6 score (range: 0 - 3) 1 Question 7 score (range: 0 - 3) 3 Question 8 score (range: 0 - 3) 0 Question 9 score (range: 0 - 3) 0 Sum of all PHQ9 questions. (range: 0 - 27) 11 (Moderate Depression) C-Ssrs Ibgc-Jxanmd-Rvria Last Contact Question 03/25/2024 9:04 AM EDT - Filed by Fely Siddiqui [...] a crisis: Name Contact Information friend- Opal Lawrence Step 5: Professionals or agencies I can contact during a crisis: Clinician/Agency Name Phone Emergency Contact PCP [phone] Counselor [phone] Local Emergency Department Emergency Department Address Emergency Department Phone [place] [facility] Suicide Prevention Lifeline Phone: Call or Text 747 Crisis Text Line: Text HOME to [phone] Step 6: Making the environment safer (plan for lethal means safety): Did not identify any lethal methods Optional: What is most important to me and worth living for?: Me; my future Jitendra Safety Plan. Yudy Mix and Gabe Carreon. Used with permission of the authors. FOLLOW-UP PLAN: Return: 2 weeks Action Plan: 1. Continue Individual Therapy 2. Continue medication management with PCP. Treatment plan reviewed with the patient. Patient voices understanding and concurs with plan. Review due 06/02/24 Fely Siddiqui LCSW Division of Psychiatry & Behavioral Medicine [facility] [address] [phone] documented in this encounter Plan of Treatment Upcoming Encounters Date Type Department Care Team (Late st Contact Info) Description 03/31/2024 8:30 AM EDT Office Visit Cardiology, [facility] [address] [place] [address] Guerita Morris PA-C [address] [place] [address] 04/06/2024 11:00 AM EDT Telemedicine Psychology Cameron Coreas [address] [address] Fely Siddiqui LCSW [address] [place] [address] 04/22/2024 3:00 PM EDT Telemedicine Psychology Cameron Coreas [address] [place] [address] Fely Siddiqui LCSW [address] [address] 04/29/2024 9:00 AM EDT Telemedicine Psychology Cameron Coreas [address] [address] Fely Siddiqui LCSW [address] [place] [phone] 05/06/2024 9:00 AM EDT Telemedicine Psychology [facility], [place] [address] [place] [phone] Fely Siddiqui LCSW [address] [place] [phone] 05/18/2024 9:00 AM EDT Telemedicine Psychology [address], [place] [address] [place] [phone] Fely Siddiqui LCSW [address] [place] [phone] 06/01/2024 11:00 AM EST Appointment Radiology, [address] [address] 06/10/2024 9:20 AM EST Office Visit Dermatology [facility] [address] [place] [phone] Mak Hazel PA-C [address] [place] [address] 06/22/2024 9:20 AM EST Office Visit Family [address] [address] Jaylen Mcwilliams MD [address] [place] [address] 09/21/2024 8:00 AM EST Office Visit [address] [address] Jaylen Mcwilliams MD [address] [place] [address] 11/30/2024 1:10 PM EDT Office Visit Optometry, [place] [address] [place] [address] Shad Green, Barrett Blank, [address] [place] [address] 02/08/2025 9:00 AM EDT Nurse Only Ancillary [facility] [address] [place] [address] [place], Nurse Annual Wellness [address] [address] Health Maintenance Due Date Last Done Comments [...] Adult Wellness Visit 02/04/2025 02/05/2024 Depression Monitoring 03/25/2025 03/25/2024 , 03/09/2024, 02/17/2024, Additional history exists Albumin/Creatinine Ratio 06/04/2025 06/04/2022 [...] cancer documented in this encounter Care Teams Aligner Barrel And Receiver Relationship Specialty Start Date End Date Jaylen Mcwilliams MD [address] [place] [address] PCP - General Family Medicine 03/05/23 documented as of this encounter
--- OUTSIDE RECORDS SUMMARY | 2024-04-24 16:17 | External Medical Summary ---
Author Name Unknown Address Unknown Organization K01:LABORATORY [facility] - [address] [place] [address] Laboratory Report Ordering Provider Test Date Status TASHA CASTELAN 04/08/2024 10:25:05 Final Observation Date Value Abnormality Reference (Units ) Status MYCODE SPECIMEN-SST 04/08/2024 10:25:05 Freezing of extracted DNA, whole blood and/or serum. Final Performing Location LABORATORY C - [address] [place] [address]
--- OUTSIDE RECORDS SUMMARY | 2024-04-24 16:17 | External Medical Summary ---
Author Name Unknown Address Unknown Organization K01:LABORATORY [facility] [place] - [address] [place] [address] Laboratory Report Ordering Provider Test Date Status [id number] 04/08/2024 10:25:05 Final Observation Date Value Abnormality Reference (Units ) Status Albumin 04/08/2024 10:25:05 4.1 3.8-5.0 (g/dL) Final AST (Aspartate aminotransferase) 04/08/2024 10:25:05 23 10-35 (U/L) Final Alk Phos 04/08/2024 10:25:05 58 35-130 (U/L) Final ALT (Alanine aminotransferase) 04/08/2024 10:25:05 33 10-35 (U/L) Final Bilirubin, Total 04/08/2024 10:25:05 0.4 <=1.2 (mg/dL) Final Bilirubin, Direct 04/08/2024 10:25:05 <0.2 0.0-0.3 (mg/dL) Final Protein 04/08/2024 10:25:05 6.5 6.0-8.3 (g/dL) Final Performing Location LABORATORY [facility] - [address] [place] [address]
--- OUTSIDE RECORDS SUMMARY | 2024-04-24 16:17 | External Medical Summary | Summary of Care ---
Author Name Unknown Organization [facility] Address [address] [facility] [place] [address] Phone [phone] Care Team Providers Care Mental Health Unit Lead Psychologist Name Role Phone Jaylen Mcwilliams MD Primary Care Provider [phone] Reason for Visit * Reason Comments Follow Up Encounter Details Date Type Department Care Team (Late st Contact Info) Description 04/22/2024 3:00 PM EDT Telemedicine Psychology Cameron Coreas [address] [place] [address] Fely Siddiqui, BALDOMERO [address] [place] [address] Adjustment disorder with mixed anxiety and depressed mood* Allergies No known active allergiesdocumented as of this encounter (statuses as of 04/22/2024) Medications Medication Sig Dispensed Refills Start Date [...] as of this encounter (statuses as of 04/22/2024) Active Problems Problem Noted Date Diagnosed Date [...] as of this encounter (statuses as of 04/22/2024) Resolved Problems Problem Noted Date Diagnosed Date Resolved Date Closed nondisplaced fracture of proximal phalanx of lesser toe of right foot 09/04/2022 12/0 02/2023 Essential hypertension with goal blood pressure less than 130/80 03/18/2019 10/27/2019 Family history of ischemic heart disease 07/24/2015 03/18/2019 documented as of this encounter (statuses as of 04/22/2024) Immunizations Name Administration Dates Next Due COVID-19 mRNA, LNP-s, No Pre serve, 2-Dose Series ([employer]) 10/30/2020,10/09/2020 COVID-19, MRNA-LNP, 23-24, P F, 30 MCG/0.3 mL, 12 YRS AND ABOVE, IM ([employer]) 05/12/2023 COVID-19, MRNA-LNP, 24-25, P R, 30MCG/0.3ML, IM, 12YRS AND ABOVE ([employer]) 04/08/2024 Seasonal Influenza Virus Vac cine, Unspecified [...] Answer Date Recorded PHQ Adult Total Score 12 04/06/2024 Hunger Vital Sign Answer Date Recorded Within the past 12 months, y ou worried that your food would run out before you got the money to buy more. Never true 04/22/20 24 Within the past 12 months, t he food you bought just didn't last and you didn't have money to get more. Never true 04/22/2024 Childcare Answer Date Recorded Do you feel overwhelmed with taking care of a child, family member or friend? No 04/22/2024 Does your family need help f inding childcare? (Household - for ages 0-17 years) Not on file 04/22/2024 Clothing Answer Date Recorded Have you been unable to get clothing when it was really needed? No 04/22/2024 Is your family able to get c lothes or diapers when needed? (Household - for ages 0-17 years) Not on file 04/22/2024 Personal Safety Answer Date Recorded Do you feel unsafe or have concerns for your saf ety? No 04/22/2024 Do you have concerns for you r family's safety? (Household - for ages 0-17 years) Not on file 04/22/2024 Utilities Answer Date Recorded Do you have trouble paying y our heating, water, or electric bill? No 04/22/2024 Is your family able to pay t he heat, water, or electric bill? (Household - for ages 0-17 years) Not on file 04/22/2024 Does your family have access to good internet? (Household - for ages 0-17 years) Not on file 04/22/2024 Employment Status Answer Date Recorded Are you unemployed or without regular income? No 04/22/2024 Does the household have a re gular source of income? (Household - for ages 0-17 years) Not on file 04/22/2024 Social Connections Answer Date Recorded How often do you feel lonely or isolated from th ose around you? Rarely 04/22/2024 Financial Resource Strain Answer Date R ecorded Do you have any trouble payi ng for your medications, or do you think you might in the future? No 04/22/2024 Does your family have troubl e paying for medicine? (Household - for ages 0-17 years) Not on file 04/22/2024 Transportation Needs Answer Date Record ed READ ONLY Do you have troubl e getting a ride to medical visits or work? Never True 04/22/2024 Does your family have a hard time getting a ride to doctors visits? (Household - for ages 0-17 years) Not on file 04/22/2024 Has lack of transportation k ept you from medical appointments, meetings, work, or from getting things needed for daily living? Check all that apply. No 04/22/2024 Do you (or your family) have trouble finding or paying for a ride (transportation)? (Household - for ages 0-17 years) Not on file 04/22/2024 Housing Stability Answer Date Recorded Do you currently live in a s helter or have no steady place to sleep at night? No 04/22/2024 READ ONLY Do you think you a re at risk of becoming homeless? No 04/22/2024 Does your family worry about paying for your home or becoming homeless? (Household - for ages 0-17 years) Not on file 1 Are you homeless or worried that you might be in the future? No 04/22/2024 Are you (or your family) alisson eless or worried that you might be in the future? (Household - for ages 0-17 years) Not on file Food Insecurity Answer Date Recorded Do you need food for this week? No 04/22/2024 Are you able to get enough f ood for your family? (Household - for ages 0-17 years) Not on file 04/22/2024 Does your family need food t his week? (Household - for ages 0-17 years) Not on file 04/22/2024 Do you always have enough fo od for your family? (Household - for ages 0-17 years) Not on file 04/22/2024 Sex and Gender Information Value Date Recorded Sex Assigned at Female 05/20/2023 10:43 AM EDT Gender Identity Female 05/20/2023 10:43 AM EDT Sexual Orientation Lesbian 05/20/2023 10 :43 AM EDT Job Start Date Occupation Industry Not on file Not on file Not on file documented as of this encounter Patient Instructions * Patient Instructions* Fely Siddiqui LCSW - 04/22/2024 3:38 PM EDT Images from the original note were not included. documented in this encounter Progress Notes * Fely Siddiqui LCSW - 04/22/2024 3:00 PM EDT Patient location: HOME. I was not in a hospital or clinic location. After connecting through televideo, patient was verified with two unique identifiers. Patient (or authorized legal client representative) was then informed that this was [...] that I have reviewed their record in [facility] and presented the opportunity for them to ask any questions regarding the visit today. The patient agreed to participate. Provider reviewed elements of Outpatient Services Description including limits of confidentiality, how to contact the department, risks and benefits of treatment and consent for treatment. Start Time: 3 pm Stop Time: 3:49 pm Total direct [id number] time: 49 min Confirm patient's location (and address if different from the home address documented in [facility]) at the time of this appointment: home ADULT THERAPY PROGRESS NOTE Psychology Cameron Coreas [address] [place] [address] 04/22/2024 3:00 PM TYPE OF VISIT: Individual DIAGNOSIS: adjustment disorder REASON FOR FOLLOW-UP: Individual therapy Session #: 10 SESSION FOCUS: not making enough progress SESSION SUMMARY/NOTES: During this session, Deb discussed how her thoughts inform her emotions and how she gets impatient with herself expecting more from herself. She was taught the CBT skill of steeping aside of her thoughts to observe and restructure the thoughts to be more rational and truthful in the moment. We reviewed sleep hygiene to help with her sleep. She shared she has been doing the abdominal breathing and this is helping. Patient was engaged with supportive techniques such as reassurance, normalization, encouragement, validation, teaching, and reflective listening. A therapeutic holding environment to allow for optimal processing of emotions was maintained throughout which allowed patient to discuss ongoing stressors. PROGRESS TOWARDS GOALS: using breathing tools; scheduled a sleep study Objective Measures: Social Needs Screening Question 04/22/2024 2:43 PM EDT - Filed by Patient We want to ensure that you can live your healthiest life, part of that is ensuring you have can find resources when you need them. We know that if you have trouble accessing things like food, housing, or transportation, it can impact your health. We encourage you to take a couple minutes to fill out this social needs questionnaire. Your care team will go over the screening with you at your upcoming visit and can connect you to local resources. Within the past 12 months, you worried that your food would run out before you got the money to buymore. Never true Within the past 12 months, the food you bought just didn't last and you didn't have money to get more. Never true Do you need food for this week? No Do you currently live in a prison or have no steady place to sleep at night? No Are you homeless or worried that you might be in the future? No Has lack of transportation kept you from medical appointments, meetings, work, or from getting things needed for daily living? Check all that apply. No Do you have any trouble paying for your medications, or do you think you might in the future? No How often do you feel lonely or isolated from those around you? Rarely Do you feel unsafe or have concerns for your safety? No Do you feel overwhelmed with taking care of a child, family member or friend? No Have you been unable to get clothing when it was really needed? No Do you have trouble paying your heating, water, or electric bill? No Are you unemployed or without regular income? No Myc Visit Accident Related Question Question 04/22/2024 2:44 PM EDT - Filed by Patient Is this visit related to an accident? (i.e work, motor vehicle) No Tony-7 Question 04/22/2024 3:03 PM EDT - Filed by Fely Siddiqui LCSW Over the last 2 weeks, how often have you been bothered by the following problems? Feeling nervous, anxious, or on edge Several days Not being able to stop or control worrying Not at all Worrying too much about different things Not at all Trouble relaxing Several days Being so restless that is hard to sit still Not at all Becoming easily annoyed or irritable Not at all Feeling afraid as if something awful might happen Not at all Total score of all questions (range: 0 - 21) 2 (Minimal) Phq9-Depression Question 04/22/2024 3:04 PM EDT - Filed by Fely Siddiqui LCSW Over the last two weeks, how often have you been bothered by any of the following problems? Little interest or pleasure in doing things Not at all Feeling down, depressed or hopeless Several days Over the last two weeks, how often have you been bothered by any of the following problems? Trouble falling or staying asleep, or sleeping too much Nearly everyday Feeling tired or having little energy Several days Poor appetite or overeating Not at all Feeling bad about yourself - or that you are a failure, or have let yourself or your family down Several days Trouble concentrating on things, such as reading the newspaper or watching television Several days Moving or speaking so slowly that other [...] Question 3 score (range: 0 - 3) 3 Question 4 score (range: 0 - 3) 1 Question 5 score (range: 0 - 3) 0 Question 6 score (range: 0 - 3) 1 Question 7 score (range: 0 - 3) 1 Question 8 score (range: 0 - 3) 0 Question 9 score (range: 0 - 3) 0 Sum of all PHQ9 questions. (range: 0 - 27) 7 (Mild Depression) C-Ssrs Jptz-[id number]-Rwnmy Last Contact Question 04/22/2024 3:04 PM EDT - Filed by Fely Siddiqui LCSW Have you wished you were or wished you could go to sleep and not wake up? No Have you actually had any thoughts of killing yourself? No Have you done anything, started to do anything, or prepared to do anything to end your life? No INTERVENTION: Cognitive Behavioral Therapy (CBT), Acceptance and Commitment Therapy (ACT), and Supportive Therapy PATIENT EDUCATION: Verbal & [...] Plan Creation Date: 03/09/24 Last Update Date: 04/22/24 Step 1: Warning signs: Warning Signs emotional [...] crisis: Clinician/Agency Name Phone Emergency Contact PCP [phone] Counselor [phone] Local Emergency Department Emergency Department Address Emergency Department Phone [facility] Suicide Prevention Lifeline Phone: Call or Text 917 Crisis Text Line: Text HOME to 685890 Step 6: Making the environment safer (plan for lethal means safety): Did not identify any lethal methods Optional: What is most important to me and worth living for?: Me; my future Dominguez-Lauri Safety Plan. Yudy Mix and Gabe Carreon. Used with permission of the authors. FOLLOW-UP PLAN: Return: 2 weeks Action Plan: 1. Continue Individual Therapy 2. Continue medication management with PCP. Treatment plan reviewed with the patient. Patient voices understanding and concurs with plan. Review due 06/02/24 Fely Siddiqui LCSW Division of Psychiatry & Behavioral Medicine [facility] [phone] documented in this encounter Plan of Treatment Upcoming Encounters Date Type Department Care Team ([facility] st Contact Info) Description 04/29/2024 9:00 AM EDT Telemedicine Psychology Cameron Coreas [address] [place] [address] Fely Siddiqui LCSW [address] [place] [phone] 05/06/2024 9:00 AM EDT Telemedicine Psychology Cameron Coreas [address] [place] [address] Fely Siddiqui LCSW [address] [place] [address] 05/18/2024 9:00 AM EDT Telemedicine Psychology Cameron Coreas [address] [place] [address] Fely Siddiqui LCSW [address] [place] [address] 06/01/2024 11:00 AM EST Appointment Radiology, [facility] [address] [place] [address] 06/10/2024 9:20 AM EST Office Visit [address] [address] Mak Hazel PA-C [address] [place] [id number] 06/14/2024 10:30 AM EST Office Visit Cardiology, [facility] [address] [place] [address] Guerita Morris PA-C [address] [place] [address] 06/22/2024 9:20 AM EST Office Visit [address] [address] Jaylen Mcwilliams MD [address] [place] [phone] 08/05/2024 9:00 AM EST Office Visit Cardiology, [facility] [address] [place] [address] Guerita Morris PA-C [address] [facility] [place] [place] [address] 09/21/2024 8:00 AM EST Office Visit [address] [address] Jaylen Mcwilliams MD [address] [place] [phone] 11/30/2024 1:10 PM EDT Office Visit Optometry, [address] [address] Barrett Kulkarni Jr., OD [address] [place], [place] [id number] 02/08/2025 9:00 AM EDT Nurse Only Ancillary [facility] [address] [place] [address] [place], Nurse [address] [address] Health Maintenance Due Date Last Done Comments [...] Adult Wellness Visit 02/04/2025 02/05/2024 Depression Monitoring 04/22/2025 04/22/2024 , 04/06/2024, 03/25/2024, Additional history exists Albumin/Creatinine Ratio 06/04/2025 06/04/2022 Diabetes Screening 12/25/2026 12/26/2023, 1 , 06/04/2022, Additional history exists Lipid Panel 04/08/2029 04/08/2024, 06/0 01/2024, 07/18/2023, Additional history exists DXA Scan 07/18/2033 07/18/2023 [...] cancer documented in this encounter Care Teams Mental Health Unit Lead Psychologist Relationship Specialty Start Date End Date Jaylen Mcwilliams MD [address] [place] [address] PCP - General Family Medicine 03/05/23 documented as of this encounter
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
--- OUTSIDE RECORDS SUMMARY | 2024-04-24 16:18 | External Medical Summary | Summary of Care ---
Author Name Unknown Organization [facility] Address [address] [place] [address] Phone [phone] Care Team Providers Care Infection Prevention Coordinator Name Role Phone Jaylen Mcwilliams MD Primary Care Provider [phone]- [phone] Encounter Details Date Type Department Care Team (Late st Contact Info) Description 01/27/2024 11:00 AM EDT Office Visit Audiology, [place] [address] [place], [place] [phone] Norm Amin Au.D. [address] [place] [address] Hearing aid worn* Allergies No known active allergiesdocumented as of this encounter (statuses as of 01/27/2024) Medications Medication Sig Dispensed Refills Start Date [...] as of this encounter (statuses as of 01/27/2024) Active Problems Problem Noted Date Diagnosed Date Moderate episode of recurrent major depressive d isorder 09/04/2022 Mixed hyperlipidemia 03/07/2021 Mild episode of recurrent major depressive disor coleman 10/27/2019 Essential hypertension with goal blood pressure less than 140/90 10/27/2019 Obesity, Class II, BMI 35-39.9, isolated (see ac tual BMI) 03/18/2019 LALIT (generalized anxiety disorder) 03/18/2019 GERD (gastroesophageal reflux disease) 8 documented as of this encounter (statuses as of 01/27/2024) Resolved Problems Problem Noted Date Diagnosed Date Resolved Date Closed nondisplaced fracture of proximal phalanx of lesser toe of right foot 09/04/2022 12/0 02/2023 Essential hypertension with goal blood pressure less than 130/80 03/18/2019 10/27/2019 Family history of ischemic heart disease 07/24/2015 03/18/2019 documented as of this encounter (statuses as of 01/27/2024) Immunizations Name Administration Dates Next Due COVID-19 mRNA, LNP-s, No Pre serve, 2-Dose Series ([employer]) 10/30/2020,10/09/2020 COVID-19, MRNA-LNP, 23-24, P F, 30 MCG/0.3 mL, 12 YRS AND ABOVE, IM ([facility]) 05/12/2023 Seasonal Influenza Virus Vac cine, Unspecified [...] drink = 0.6 oz pur e alcohol) rare PHQ-2 Answer Date Recorded PHQ Adult Total Score 7 01/20/2024 Hunger Vital Sign Answer Date Recorded Within [...] as of this encounter Progress Notes * Norm Amin Au.D. - 01/27/2024 12:55 PM EDT Deb Bansal was seen for a 2 week check of her hearing aids. The following was dispensed: Make: oticon Model: Real 1 miniRITE 1 Color Steel vogel Right SN: [id number] Left SN: [id number] Retention: 2 85 reciever 8mm vented dome Battery: LI Warranty: 12/03/26 Dispensed: 12/23/2023 Technical Service Specialist: Brennan Obtained: OVR Patient is doing well with the hearing aids and intends to keep them. She had a few questions aboutgeneral use and maintenance that we reviewed. She will return in 1 year for follow up. Norm Salgado documented in this encounter Plan of Treatment Upcoming Encounters Date Type Department Care Team (Late st Contact Info) Description 02/03/2024 11:00 AM EDT Telemedicine [address] [phone] Mindi Gonzalez LPC [address] [place] [address] 02/05/2024 9:00 AM EDT Nurse Only Ancillary [address] [phone] [place], Nurse Annual Wellness [address] [address] 02/17/2024 11:00 AM EDT Telemedicine [address] [phone] Mindi Gonzalez LPC [address] [place] [address] 03/09/2024 2:00 PM EDT Office Visit Cardiology, [facility] [address] [facility] [address] Romana Mckoy CRNP [address] [facility] [address] 03/16/2024 9:20 AM EDT Office Visit [address] [address] Jaylen Mcwilliams MD [address] [place] [address] 06/10/2024 9:20 AM EST Office Visit Dermatology [facility] [address] [place] [phone] Mak Hazel PA-C [address] [place] [address] 06/22/2024 9:20 AM EST Office Visit [address] [address] Jaylen Mcwilliams MD [address] [place] [address] 11/30/2024 1:10 PM EDT Office Visit Optometry, [place] [address] [place] [address] Barrett Kulkarni Jr., OD [address] [place] [address] Health Maintenance Due Date Last Done Comments DTaP,Tdap,and Td Vaccines (1 - Tdap) 1977 Cologuard 2003 Fecal Occult Blood Test 2003 Sigmoidoscopy 2003 Pneumococcal Vaccine: 65+ Years (1 of 1 - PCV) 2023 COVID-19 Vaccine (2022- season) 2023 05/12/2023, 11/05/2021, 05/15/2021, Additional history exists Influenza Vaccine (FLU shot) (#1) 2024 06/10/2023, 05/02/2020, 05/02/2020 Mammogram 05/29/2024 05/29/2023, 04/20, 04/23/2022, Additional history exists Colonoscopy 07/08/2024 07/08/2019, 10/14/2011 Colorectal Cancer Screening 07/08/2024 GFR 12/25/2024 12/26/2023, 06/21, 06/04/2022, Additional history exists Depression Monitoring 01/19/2025 01/20/2024, 024 Albumin/Creatinine Ratio 06/04/2025 06/04/2022 Diabetes Screening 12/25/2026 [...] as of this encounter Visit Diagnoses Diagnosis Hearing aid worn- Primary Other postprocedural status documented in this encounter Care Teams Infection Prevention Coordinator Relationship Specialty Start Date End Date Jaylen Mcwilliams MD [facility] [place] [address] PCP - General Family Medicine 03/05/23 documented as of this encounter
--- OUTSIDE RECORDS SUMMARY | 2024-04-24 16:18 | External Medical Summary | Summary of Care ---
Author Name Unknown Organization [facility] Address [address] [place] [address] Phone [phone] Care Team Providers Care Mobile Home Set Up Person Name Role Phone Jaylen Mcwilliams MD Primary Care Provider [phone]- [phone] Reason for Visit * Reason Comments Status Check Encounter Details Date Type Department Care Team (Late st Contact Info) Description 03/16/2024 9:20 AM EDT Office Visit [facility] [address] [place], [place] [phone] Jaylen Mcwilliams MD [address] [place] [address] Obesity, Class II, BMI 35-39.9, isolated (see actual BMI)*; Moderate episode of recurrent major depressive disorder (HCC); Mixed hyperlipidemia; Gastroesophageal reflux disease without esophagitis; LALIT (generalized anxiety disorder); Essential hypertension with goal blood pressure less than 140/90 Allergies No known active allergiesdocumented as of this encounter (statuses as of 03/16/2024) Medications Medication Sig Dispensed Refills Start Date [...] the morning. 90 Tablet 3 03/16/2024 Active Aspirin 81 MG Oral Tablet Delayed Release Take 1 Tablet by mouth in the morning. 11/09/2013 4 Discontinued documented as of this encounter (statuses as of 03/16/2024) Active Problems Problem Noted Date Diagnosed Date [...] as of this encounter (statuses as of 03/16/2024) Resolved Problems Problem Noted Date Diagnosed Date Resolved Date Closed nondisplaced fracture of proximal phalanx of lesser toe of right foot 09/04/2022 12/0 02/2023 Essential hypertension with goal blood pressure less than 130/80 03/18/2019 10/27/2019 Family history of ischemic heart disease 07/24/2015 03/18/2019 documented as of this encounter (statuses as of 03/16/2024) Immunizations Name Administration Dates Next Due COVID-19 mRNA, LNP-s, No Pre serve, 2-Dose Series ([employer]) 10/30/2020,10/09/2020 COVID-19, MRNA-LNP, 23-24, P F, 30 MCG/0.3 mL, 12 YRS AND ABOVE, IM ([facility]) 05/12/2023 Seasonal Influenza Virus Vac cine, Unspecified [...] on file documented as of this encounter Last Filed Vital Signs Vital Sign Reading Time Taken Comments Blood Pressure 104/62 03/16/2024 9:29 AM EDT Pulse 70 03/16/2024 9:29 AM EDT Temperature 36.7 C (98.1 F) 03/16/2024 9:29 AM ED T Respiratory Rate 20 03/16/2024 9:29 AM EDT Oxygen Saturation 97% 03/16/2024 9:29 AM EDT Inhaled Oxygen Concentration - - Weight 87.8 kg (193 lb 9.6 oz) 03/16/2024 9:29 A M EDT Height - - Body Mass Index 32.22 03/02/2024 8:29 AM EDT documented in this encounter Progress Notes * Jaylen Mcwilliams MD - 03/16/2024 10:15 AM EDT Subjective: Deb Bansal is a 64 year old female Chief Complaint Patient presents with Status Check Nursing Notes: Tessa Ross LPN 03/16/24 0931 Signed Check up. Still getting hot flashes. Having issues with stomach. HPI: This 64-year-old presents the office for follow-up examination she is overweight she was encouraged to lose exercise as much as she can she does have depressive symptoms and anxiety well controlled current. She has essential hypertension with a pressure 104/62 and that is under good control. She does have some acid reflux issues and she is willing to try some Pepcid 20 mg daily. The patient does have mixed hyperlipidemia with an LDL of 77 and she has been on Crestor 20 mg for a short period of time and that lipid panel be recheck in 6 months. The patient is up-to-date on her preventive medicine vaccines and she is due for colonoscopy next year. She will continue her mammograms. She will be recheck in 6 months and have a lipid panel prior to her next appointment. PMH: Medication list, PMH, Family history, social history, and problem list have been reviewed and updated in the Electronic Medical Record as noted below. Patient Active Problem List Diagnosis Gastroesophageal reflux disease without esophagitis Obesity, Class II, BMI 35-39.9, isolated (see actual BMI) LALIT (generalized anxiety disorder) Mild episode of recurrent major depressive disorder (HCC) Essential hypertension with goal blood pressure less than 140/90 Mixed hyperlipidemia Moderate episode of recurrent major depressive disorder (HCC) Current Outpatient Medications Medication Sig Dispense Refill Multiple Vitamin (MULTI VITAMIN DAILY) TABS Take by mouth. Lisinopril 40 MG Oral Tablet TAKE 1 TABLET BY MOUTH IN THE MORNING AND AT BEDTIME 180 Tablet 2 hydroCHLOROthiazide 25 MG Oral Tablet (Hydrodiuril) Take 1 tablet by mouth once daily 90 Tablet 2 Metoprolol Tartrate 25 MG Oral Tablet (Lopressor) Take 1 tablet by mouth twice daily 180 Tablet 2 Citalopram Hydrobromide 40 MG Oral Tablet (CeleXA) Take 1 tablet by mouth in the evening 90 Tablet 2 Rosuvastatin Calcium 20 MG Oral Tablet (Crestor) Take 1 Tablet by mouth in the morning. 90 Tablet 3 No current facility-administered medications for this visit. Past Medical History: Diagnosis Date Arthralgia Dysphagia, unspecified Gastric ulcer 08/15/2014 BY EGD Gastritis, acute 12/19/201401/02 VIA EGD & 08/04 VIA EGD Hernia, hiatal 08/15/2014 EGD HTN (hypertension) Migraines Past Surgical History: Procedure Laterality Date CHOLECYSTOTOMY OR CHOLECYSTOSTOMY, OPEN COLONOSCOPY 10/14/2011 NORMAL EGD, FLEXIBLE, DIAGNOSTIC 12/19/201401/02 & 08/04 chronic gastritis,hiatal hernia and ulcer of antrum EGD, FLEXIBLE, DIAGNOSTIC 09/29/2018 non-bleeding gastric ulcers, normal biopsies/repeat 8 wks/ESOPHAGOGASTRODUODENOSCOPY (EGD), FLEXIBLE, TRANSORAL, DIAGNOSTIC performed by Annette Berger DO at [facility] EGD, FLEXIBLE, DIAGNOSTIC 11/24/2018 erosive gastropathy/ESOPHAGOGASTRODUODENOSCOPY (EGD), FLEXIBLE, TRANSORAL, DIAGNOSTIC performed by Annette Berger DO at [facility]COPY [facility] PARTIAL HYSTERECTOMY REMOVAL OF APPENDIX Review of patient's allergies indicates: No Known Allergies Family History Problem Relation Name Age of Onset Heart Disorder Mother [place] x 2 Skin cancer Brother Family Status Relation Status Fa Mo Alive Bro Alive skin ca Social History Tobacco Use Smoking status: Never Smokeless tobacco: Never Substance Use Topics Alcohol use: Yes Comment: 2 drinks every other week Vaping/E-Cigarette Use Vaping/E-Cigarette Use Never User Vaping/E-Cigarette Substances Vaping/E-Cigarette Devices Review of Systems: General: No change in weight, No weakness, No fatigue and No fevers, sweats, or chills Head: No significant headache and No recent significant head injury Neck: No complaint of lumps in neck, No swollen glands, No recent swelling in thyroid area and No significant pain in neck Respiratory: No cough, sputum, or hemoptysis, No wheezing, No shortness of breath and No recent change in breathing Cardiac: No chest pain, No shortness of breath, No dyspnea on exertion, No orthopnea, No paroxysmalnocturnal dyspnea, No edema, No palpitations and No syncope Gastrointestinal: No dysphagia, No significant heartburn, No significant change in appetite, No nausea, vomiting, diarrhea, or constipation, No hematemesis, No blood in stools or black tarry stools, No abdominal bloating or early satiety and No abdominal pain Musculoskeletal: No joint pain or stiffness, No arthritis, No backache, No muscle pains or cramps and No joint swelling Neurologic: No fainting or blackouts, No seizures, No paralysis or focal weakness, No numbness or tingling, No tremors and No significant problems with memory All other systems reviewed and are negative. Objective: BP 104/62 (BP Site: Left Arm, BP Position: Sitting, BP Cuff Size: Regular) | Pulse 70 | Temp 36.7 C (98.1 F) (Tympanic) | Resp 20 | Wt 87.8 kg (193 lb 9.6 oz) | SpO2 97% | BMI 32.22 kg/m | BSA 2.01 m Physical Exam: General: alert, healthy, no distress, well nourished and well developed Head: Normocephalic, No masses, lesions, tenderness or abnormalities Neck: supple, no adenopathy, no bruits, thyroid normal size, non-tender, without nodularity Heart: regular rate & rhythm, no murmurs and no gallops Lungs: chest symmetric with normal AP diameter, no chest deformities noted, no chest wall tenderness, lungs clear to auscultation Abdomen: abdomen soft, non-tender, normal bowel sounds and no masses or organomegaly Back: No CVA tenderness, no tenderness to percussion or palpation Extremities: no joint deformities, effusion, or inflammation, no edema, no clubbing, no cyanosis Neuro Exam: alert & oriented x 3 with fluent speech, no focal motor/sensory deficits, gait normal, reflexes normal and symmetric Musculoskeletal: This patient has full range of motion. There is no swelling or erythema of the joints. There is no increased warmth of the joints. ASSESSMENT/PLAN: Obesity, Class II, BMI 35-39.9, isolated (see actual BMI) (Primary) Moderate episode of recurrent major depressive disorder (HCC) Mixed hyperlipidemia - LIPID PANEL WITH DIRECT LDL IF TG IS HIGH; Future; Expected date: 09/16/2024 Gastroesophageal reflux disease without esophagitis LALIT (generalized anxiety disorder) Essential hypertension with goal blood pressure less than 140/90 Jaylen Mcwilliams MD 03/16/24 documented in this encounter Nursing Notes * Tessa Ross LPN - 03/16/2024 9:28 AM EDT Check up. Still getting hot flashes. Having issues with stomach. documented in this encounter Plan of Treatment Upcoming Encounters Date Type Department Care Team (Late st Contact Info) Description 03/25/2024 9:00 AM EDT Telemedicine Psychology [facility] [address] [place] [phone] Fely Siddiqui, CRAB FISHERMAN [address] [facility] [place] [address] 03/31/2024 8:30 AM EDT Office Visit Cardiology, [facility] [address] [facility] [place] [address] Guerita Morris PA-C [address] [place] [address] 04/06/2024 11:00 AM EDT Telemedicine Psychology [address] [place] [address] [place] [phone] Fely Siddiqui, CRAB FISHERMAN [address] [place] [address] 06/01/2024 11:00 AM EST Appointment Radiology, [address] [address] 06/10/2024 9:20 AM EST Office Visit Dermatology [facility] [address] [place] [address] Mak Hazel PA-C [address] [place] [address] 06/22/2024 9:20 AM EST Office Visit [address] [address] Jaylen Mcwilliams MD [address] [place] [address] 09/21/2024 8:00 AM EST Office Visit Family [address] [address] Jaylen Mcwilliams MD [address] [place] [address] 11/30/2024 1:10 PM EDT Office Visit Optometry, [place] [address] [place] [address] Barrett Kulkarni Jr., OD [address] [place] [address] 02/08/2025 9:00 AM EDT Nurse Only Ancillary [facility] [place] [address] [place] [address] Havecelina, Nurse Annual Wellness [facility] [address] [place] [address] Scheduled Orders Name Type Priority Associated Diagnoses Orde r Schedule LIPID PANEL WITH DIRECT LDL IF TG IS HIGH Lab Routine Mixed hyperlipidemia Expected: 09/16/2024 (Approximate), Expires: 03/16/2025 Health Maintenance Due Date Last Done Comments DTap/Tdap Vaccines (1 - Tdap) 1977 Cologuard 2003 Fecal Occult Blood Test 2003 Sigmoidoscopy 2003 Pneumococcal Vaccine: 65+ Years (1 of 1 - PCV) 2023 COVID-19 Vaccine ( - season) 2023 05/12/2023, 11/05/2021, 05/15/2021, Additional history [...] as of this encounter Visit Diagnoses Diagnosis Obesity, Class II, BMI 35-39.9, isolated (see actual BMI)- Primary Morbid obesity Moderate episode of recurrent major depressive disorder (HCC) Mixed hyperlipidemia Gastroesophageal reflux disease without esophagitis Esophageal reflux LALIT (generalized anxiety disorder) Generalized anxiety disorder Essential hypertension with goal blood pressure less than 140/90 Screening mammogram for breast cancer documented in this encounter Care Teams Mobile Home Set Up Person Relationship Specialty Start Date End Date Jaylen Mciwlliams MD [address] [place] [address] PCP - General Family Medicine 03/05/23 documented as of this encounter"
--- OUTSIDE RECORDS SUMMARY | 2024-04-24 16:18 | External Medical Summary | Summary of Care ---
Author Name Unknown Organization [facility] Address [address] [facility] [place] [address] Phone [phone] Care Team Providers Care Operation Agent Name Role Phone Jaylen Mcwilliams MD Primary Care Provider [phone]- [phone] Reason for Visit * Reason Comments Completion Of Treatment Encounter Details Date Type Department Care Team (Late st Contact Info) Description 02/23/2024 8:00 AM EDT Telemedicine Psychology, [facility] [address] [place] [address] Mindi Gonzalez, [facility] [address] [place] [address] Adjustment disorder with mixed anxiety and depressed mood* Allergies No known active allergiesdocumented as of this encounter (statuses as of 02/27/2024) Medications Medication Sig Dispensed Refills Start Date [...] as of this encounter (statuses as of 02/27/2024) Active Problems Problem Noted Date Diagnosed Date [...] as of this encounter (statuses as of 02/27/2024) Resolved Problems Problem Noted Date Diagnosed Date Resolved Date Closed nondisplaced fracture of proximal phalanx of lesser toe of right foot 09/04/2022 12/0 02/2023 Essential hypertension with goal blood pressure less than 130/80 03/18/2019 10/27/2019 Family history of ischemic heart disease 07/24/2015 03/18/2019 documented as of this encounter (statuses as of 02/27/2024) Immunizations Name Administration Dates Next Due COVID-19 mRNA, LNP-s, No Pre serve, 2-Dose Series ([facility]) 10/30/2020,10/09/2020 COVID-19, MRNA-LNP, 23-24, P F, 30 MCG/0.3 mL, 12 YRS AND ABOVE, IM ([employer]) 05/12/2023 Seasonal Influenza Virus Vac cine, Unspecified [...] as of this encounter Progress Notes * Mindi Gonzalez, CASING MAN - 02/23/2024 10:18 AM EDT Patient location: HOME. I was not in a hospital or clinic location. After connecting through [employer], patient was verified with two unique identifiers. Patient (or authorized legal phlebotomy services representative) was then informed that this was [...] that I have reviewed their record in [facility] and presented the opportunity for them to ask any questions regarding the visit today. The patient agreed to participate. Provider reviewed elements of Outpatient Services Description including limits of confidentiality, how to contact the department, risks and benefits of treatment and consent for treatment. Start Time: 805AM Stop Time: 911AM Total direct [id number] time: 66 Confirm patient's location (and address if different from the home address documented in [facility]) at the time of this appointment: home. ADULT THERAPY PROGRESS NOTE Psychology, [address] [phone] 02/23/2024 8:07 AM TYPE OF VISIT: Individual DIAGNOSIS: Adjustment Disorder REASON FOR FOLLOW-UP: Individual therapy Session #: 6 SESSION FOCUS: Progress and provider transfer SESSION SUMMARY/NOTES: During session, Deb discussed familial conflict involving her and immediate family, communicating needs to family members, advocating for herself, and coping skills. Therapist and Deb processed provider transfer. Deb is aware and in agreement to transfer. PROGRESS TOWARDS GOALS: Deb will continue to work on healthy coping skills and setting healthy boundaries with family and partner as well as communication skills as needed. Objective Measures: Myc Visit Accident Related Question Question 02/23/2024 7:26 AM EDT - Filed by Patient Is this visit related to an accident? (i.e work, motor vehicle) No INTERVENTION: Cognitive Behavioral Therapy (CBT) and [...] Suicide/Homicidal Assessment Validated Screening and Assessment Measures Negative SI/HI FOLLOW-UP PLAN: Return: continue with new provider. Action Plan: 1. Continue Individual Therapy Treatment plan reviewed with the patient. Patient voices understanding and concurs with plan. Mindi Gonzalez LPC Division of Psychiatry & Behavioral Medicine [facility] [phone] THERAPY/PSYCHOLOGY DISCHARGE SUMMARY 1. Summary of Services provided: Individual Therapy 2. Outcomes and referrals: PATIENT TRANSFER due to provider departure; and pt in need of continued care. 3. Relevant psychosocial status: stable Plan of care at time of discharge including referrals: Use crisis plan as needed REFERRAL TO NEW PROVIDER - Fely Siddiqui. documented in this encounter Plan of Treatment Upcoming Encounters Date Type Department Care Team (Late st Contact Info) Description 03/02/2024 8:40 AM EDT Office Visit [facility] [address] [place] [phone] Jeannine Pena DO [address] [place] [address] 03/16/2024 9:20 AM EDT Office Visit Family [facility] [address] [place] [address] Jaylen Mcwilliams MD [address] [place] [address] 05/25/2024 1:30 PM EST Office Visit Cardiology, [facility] [address] [place] [address] Guerita Morris PA-C [address] [place] [address] 06/01/2024 11:00 AM EST Appointment Radiology, [address] [address] 06/10/2024 9:20 AM EST Office Visit Dermatology [facility] [address] [place] [phone] Mak Hazel PA-C [address] [place] [address] 06/22/2024 9:20 AM EST Office Visit Family Practice, [address] [address] Jaylen Mcwilliams MD [address] [place] [address] 11/30/2024 1:10 PM EDT Office Visit Optometry, [place] [address] [place] [address] Barrett Kulkarni Jr., OD [address] [place] [address] 02/08/2025 9:00 AM EDT Nurse Only Ancillary [address] [phone] Havecelina, Nurse Annual Wellness [address] [address] Health Maintenance Due Date Last Done Comments [...] Adult Wellness Visit 02/04/2025 02/05/2024 Depression Monitoring 02/16/2025 02/17/2024 , 02/05/2024, 01/20/2024, Additional history exists Albumin/Creatinine Ratio 06/04/2025 06/04/2022 [...] cancer documented in this encounter Care Teams Operation Agent Relationship Specialty Start [place] [address] [place] [address] PCP - General Family Medicine 03/05/23 documented as of this encounter
--- OUTSIDE RECORDS SUMMARY | 2024-04-24 16:18 | External Medical Summary | Summary of Care ---
Author Name Unknown Organization [facility] Address [address] [facility] [place] [address] Phone [phone] Care Team Providers Care Automotive Alignment Specialist Name Role Phone Jaylen Mcwilliams MD Primary Care Provider [phone]- [phone] Reason for Visit * Reason Comments Follow Up Encounter Details Date Type Department Care Team (Late st Contact Info) Description 01/20/2024 11:00 AM EDT Telemedicine [facility], [facility] [address] [place] [address] Mindi Gonzalez [facility] [address] [place] [address] Adjustment disorder with mixed anxiety and depressed mood* Allergies No known active allergiesdocumented as of this encounter (statuses as of 01/21/2024) Medications Medication Sig Dispensed Refills Start Date [...] as of this encounter (statuses as of 01/21/2024) Active Problems Problem Noted Date Diagnosed Date [...] as of this encounter (statuses as of 01/21/2024) Resolved Problems Problem Noted Date Diagnosed Date Resolved Date Closed nondisplaced fracture of proximal phalanx of lesser toe of right foot 09/04/2022 12/0 02/2023 Essential hypertension with goal blood pressure less than 130/80 03/18/2019 10/27/2019 Family history of ischemic heart disease 07/24/2015 03/18/2019 documented as of this encounter (statuses as of 01/21/2024) Immunizations Name Administration Dates Next Due COVID-19 mRNA, LNP-s, No Pre serve, 2-Dose Series (Blued) 10/30/2020,10/09/2020 COVID-19, MRNA-LNP, 23-24, P F, 30 MCG/0.3 mL, 12 YRS AND ABOVE, IM (CBLPathComirnat) 05/12/2023 Seasonal Influenza Virus Vac cine, Unspecified [...] Date Recorded PHQ Adult Total Score 5 01/06/2024 Hunger Vital Sign Answer Date Recorded Within [...] this encounter Progress Notes * Mindi Gonzalez, CHIEF OPERATIONS OFFICER - 01/20/2024 11:01 AM EDT Patient location: HOME. I was not in a hospital or clinic location. After connecting through [email or web address], patient was verified with two unique identifiers. 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 The patient agreed to participate. Provider reviewed elements of Outpatient Services Description including limits of confidentiality, how to contact the department, risks and benefits of treatment and consent for treatment. Start Time: 1101AM Stop Time: 1156AM Total direct [id number] time: 55 Confirm patient's location (and address if different from the home address documented in [facility]) at the time of this appointment: home. ADULT THERAPY PROGRESS NOTE [facility], [address] [address] 01/20/2024 11:01 AM TYPE OF VISIT: Individual DIAGNOSIS: Adjustment Disorder REASON FOR FOLLOW-UP: Individual therapy Session #: 3 SESSION FOCUS: Coping with family differences and acceptance SESSION SUMMARY/NOTES: During session, rich discussed her recent conversation with her mother and sister. Rich reported she felt the conversation was unresolved and her family did not "understand" her. Rich and therapist discussed expectations of others and the desire to be understood. Rich and therapist discussed coping skills to manage challenging family dynamics and practicing self-compassion. Rich and therapist identified her strengths that aid in managing symptoms. Throughout session,Therapist validated expression of emotions, utilized active listening, and empathy, as well as exploring necessary thoughts/feelings/behaviors. PROGRESS TOWARDS GOALS: Rich will work on healthy coping skills and setting healthy boundaries with family and partner. Objective Measures: Tony-7 Question 01/20/2024 10:02 AM EDT - Filed by Patient Over the last 2 weeks, how often have you been bothered by the following problems? Feeling nervous, anxious, or on edge Several days Not being able to stop or control worrying Several days Worrying too much about different things Several days Trouble relaxing Several days Being so restless that is hard to sit still Several days Becoming easily annoyed or irritable Several days Feeling afraid as if something awful might happen Not at all Total score of all questions (range: 0 - 21) 6 (Mild) Phq9-Depression Question 01/20/2024 10:06 AM EDT - Filed by Patient Over the last two weeks, how often [...] energy Several days Poor appetite or overeating Several days Feeling bad about yourself - or that you are a failure, or have let yourself or your family down Several days Trouble concentrating on things, such as reading the newspaper or watching television Not at all Moving or speaking so slowly that other [...] Question 7 score (range: 0 - 3) 0 Question 8 score (range: 0 - 3) 1 Question 9 score (range: 0 - 3) 0 Sum of all PHQ9 questions. (range: 0 - 27) 7 (Mild Depression) Myc Visit Accident Related Question Question 01/20/2024 10:07 AM EDT - Filed by Patient Is this visit related to an accident? (i.e work, motor vehicle) No C-Ssrs [id number] Last Contact Question 01/20/2024 10:07 AM EDT - Filed by Patient Have you wished you were or wished you could go to sleep and not wake up? No Have you actually had any thoughts of killing yourself? No Have you done anything, started to do anything, or prepared to do anything to end your life? No INTERVENTION: Cognitive Behavioral Therapy (CBT), Problem-solving , and Supportive Therapy PATIENT EDUCATION: Verbal & written MENTAL STATUS AND BEHAVIORAL OBSERVATIONS: Appearance: within normal limits Behavior: appropriate and cooperative Speech: normal pitch, normal rate, and normal volume Mood: "I;m ok" Affect: appropriate and mood-congruent Thought Process: within normal limits Thought Content: Delusions: No Hallucinations: No Obsessions: No Homicidal: No Suicidal: No Sensorium: alert and oriented to person, place, time and situation Cognition: grossly intact Insight: good Judgment: good Suicide/Homicidal Assessment Validated Screening and Assessment Measures Above. Crisis Plan: see Crisis Plan in Treatment Plan FOLLOW-UP PLAN: Return: 2 weeks Action Plan: 1. Continue Individual Therapy Treatment plan reviewed with the patient. Patient voices understanding and concurs with plan. Mindi Gonzalez LPC Division of Psychiatry & Behavioral Medicine [facility] [phone] documented in this encounter Plan of Treatment Upcoming Encounters Date Type Department Care Team (Late st Contact Info) Description 01/27/2024 11:00 AM EDT Office Visit Audiology, [place] [address] [place] [address] Norm Amin Au.D. [address] [place] [address] 02/03/2024 11:00 AM EDT Telemedicine [facility], [facility] [address] [place] [address] Mindi Gonzalez LPC [address] [place] [id number] 02/05/2024 9:00 AM EDT Nurse Only Ancillary [address] [address] Jessy, Nurse [address] [address] 02/17/2024 11:00 AM EDT Telemedicine Psychology, [facility] [address] [place] [phone] Mindi Gonzalez, CHIEF OPERATIONS OFFICER [address] [place] [address] 03/09/2024 2:00 PM EDT Office Visit Cardiology, [facility] [address] [place] [address] Romana Mckoy CRNP [address] [facility] [place] [address] 03/16/2024 9:20 AM EDT Office Visit Family [address] [address] Jaylen Mcwilliams MD [address] [place] [address] 06/10/2024 9:20 AM EST Office Visit Dermatology [address] [address] Mak Hazel PA-C [address] [place] [address] 06/22/2024 9:20 AM EST Office Visit [address] [address] Jaylen Mcwilliams MD [address] [place] [address] 11/30/2024 1:10 PM EDT Office Visit Optometry, [address] [address] Shad Green, Barrett Blank, OD [address] [place] [address] Health Maintenance Due Date Last Done Comments [...] with mixed anxiety and depressed mood- Primary documented in this encounter Care Teams Automotive Alignment Specialist Relationship Specialty Start Date End Date Jaylen Mcwilliams MD [address] [place] [address] PCP - General Family Medicine 03/05/23 documented as of this encounter
--- OUTSIDE RECORDS SUMMARY | 2024-04-24 16:18 | External Medical Summary | Summary of Care ---
Author Name Unknown Organization [facility] Address [address] [facility] [place] [address] Phone [phone] Care Team Providers Care Security Auditor Name Role Phone Jaylen Mcwilliams MD Primary Care Provider [phone]- [phone] Encounter Details Date Type Department Care Team (Late st Contact Info) Description 03/03/2024 Telephone [facility], [address] [address] Mindi Gonzalez, OMAR Allergies No known active allergiesdocumented as of this encounter (statuses as of 03/03/2024) Medications Medication Sig Dispensed Refills Start Date [...] as of this encounter (statuses as of 03/03/2024) Active Problems Problem Noted Date Diagnosed Date [...] as of this encounter (statuses as of 03/03/2024) Resolved Problems Problem Noted Date Diagnosed Date Resolved Date Closed nondisplaced fracture of proximal phalanx of lesser toe of right foot 09/04/2022 12/0 02/2023 Essential hypertension with goal blood pressure less than 130/80 03/18/2019 10/27/2019 Family history of ischemic heart disease 07/24/2015 03/18/2019 documented as of this encounter (statuses as of 03/03/2024) Immunizations Name Administration Dates Next Due COVID-19 mRNA, LNP-s, No Pre serve, 2-Dose Series (Artsicle) 10/30/2020,10/09/2020 COVID-19, MRNA-LNP, 23-24, P F, 30 MCG/0.3 mL, 12 YRS AND ABOVE, IM [facility] 05/12/2023 Seasonal Influenza Virus Vac cine, Unspecified [...] encounter Miscellaneous Notes * Telephone Encounter - Luz Maria Swann OSA - 03/03/2024 11:22 AM EDT Called and had to leave a message requesting a call back to schedule with a new therapist since Mindi Gonzalez is leaving [facility]. New with Fely Siddiqui, can use open return slots. documented in this encounter Plan of Treatment Upcoming Encounters Date Type Department Care Team (Late st Contact Info) Description 03/16/2024 9:20 AM EDT Office Visit [address] [address] Jaylen Mcwilliams MD [address] [place] [phone] 05/25/2024 1:30 PM EST [facility] [place] [address] Guerita Morris PA-C [address] [place] [address] 06/01/2024 11:00 AM EST Appointment Radiology, [address] [address] 06/10/2024 9:20 AM EST Office Visit Dermatology [address] [phone] Mak Hazel PA-C [address] [place] [address] 06/22/2024 9:20 AM EST Office Visit [address] [address] Jaylen Mcwilliams MD [address] [place] [address] 11/30/2024 1:10 PM EDT Office Visit Optometry, [place] [address] [place] [address] Barrett Kulkarni Jr., AROLDO [address] [place] [address] 02/08/2025 9:00 AM EDT Nurse Only Ancillary [address] [phone] [place], Nurse [facility] [address] [address] Health Maintenance Due Date Last Done Comments [...] filedocumented as of this encounter Care Teams Security Auditor Relationship Specialty Start Date End Date Jaylen Mcwilliams MD [address] [place] [address] PCP - General Family Medicine 03/05/23 documented as of this encounter
--- OUTSIDE RECORDS SUMMARY | 2024-04-24 16:18 | External Medical Summary | Summary of Care ---
Author Name Unknown Organization [facility] Address [address] [facility] [address] Phone [phone] Care Team Providers Care Single Ending Machine Operator Name Role Phone Jaylen Mcwilliams MD Primary Care Provider [phone]- [phone] Reason for Referral * Precert (Diagnostic Medical) (Within 10 days (routine)) - Authorized Specialty Diagnoses / Procedures Referred By Contstanfrod garcia Referred To Contact Sleep Disorders Diagnoses Snoring Hypersomnolence Sleep apnea, unspecified type Essential hypertension with goal blood pressure less than 140/90 Procedures SLEEP STUDY, W/ CPAP (TREATMENT SETTINGS) Jeannine Pena DO [address] [place] [address] Referral ID Status Reason Start Date Expiration Date V isits Requested Visits Authorized [id number] Authorized 03/02/2024 999 999 * Precert (Diagnostic Medical) (Within 10 days (routine)) - Authorized Specialty Diagnoses / Procedures Referred By Contstanford garcia Referred To Contact Sleep Disorders Diagnoses Snoring Hypersomnolence Sleep apnea, unspecified type Essential hypertension with goal blood pressure less than 140/90 Procedures SLEEP STUDY, W/O CPAP Jeannine Pena DO [address] [place] [address] Referral ID Status Reason Start Date Expiration Date V isits Requested Visits Authorized [id number] Authorized 03/02/2024 999 999 Reason for Visit * Reason Comments NEW PATIENT Snoring * Evaluate & Treat - Unlimited Visits (Within 10 days (routine)) - Authorized Specialty Diagnoses / Procedures Referred By Catalina t Referred To Contact Sleep Medicine / Sleep Disorders Diagnoses Sleep concern Jaylen Mcwilliams MD [facility] [place] [address] Referral ID Status Reason Start Date Expiration Date Visits Requested Visits Authorized [id number] Authorized Specialty Services Required 02/05/2024 2 2 Encounter Details Date Type Department Care Team (Late st Contact Info) Description 03/02/2024 8:40 AM EDT Office Visit Sleep Disorders [facility] [address] [facility] [place] [address] Jeannine Pena DO [address] [facility] [place] [address] Snoring*; Hypersomnolence; Sleep apnea, unspecified type; Essential hypertension with goal blood pressure less than 140/90 Allergies No known active allergiesdocumented as of this encounter (statuses as of 03/02/2024) Medications Medication Sig Dispensed Refills Start Date [...] as of this encounter (statuses as of 03/02/2024) Active Problems Problem Noted Date Diagnosed Date [...] as of this encounter (statuses as of 03/02/2024) Resolved Problems Problem Noted Date Diagnosed Date Resolved Date Closed nondisplaced fracture of proximal phalanx of lesser toe of right foot 09/04/2022 12/0 02/2023 Essential hypertension with goal blood pressure less than 130/80 03/18/2019 10/27/2019 Family history of ischemic heart disease 07/24/2015 03/18/2019 documented as of this encounter (statuses as of 03/02/2024) Immunizations Name Administration Dates Next Due COVID-19 mRNA, LNP-s, No Pre serve, 2-Dose Series ([employer]) 10/30/2020,10/09/2020 COVID-19, MRNA-LNP, 23-24, P F, 30 MCG/0.3 mL, 12 YRS AND ABOVE, IM ([employer]) 05/12/2023 Seasonal Influenza Virus Vac cine, Unspecified Formulation 05/02/2020 Seasonal Influenza, PF, 6 M & above, IM , (FluLaval or Fluzone) 06/10/2023,05/02/2020 TDAP (age 10 and older)(Boostrix) 09/09/2023(Def erred: Patient Refused) Zoster Vaccine Recombinant (Shingrix) 01/01/2021 ,05/02/2020 documented as of this encounter Social History Tobacco Use Types Packs/Day Years Used Date Smoking Tobacco: Never Smokeless Tobacco: Never Tobacco Cessation:Counseling Given: Not Answered Alcohol Use Standard Drinks/Week Comments Yes 0 [...] Sign Reading Time Taken Comments Blood Pressure 128/74 03/02/2024 8:29 AM EDT Pulse 61 03/02/2024 8:29 AM EDT Temperature 36 C (96.8 F) 03/02/2024 8:29 AM EDT Respiratory Rate 16 03/02/2024 8:29 AM EDT Oxygen Saturation 96% 03/02/2024 8:29 AM EDT Inhaled Oxygen Concentration - - Weight 88 kg (194 lb) 03/02/2024 8:29 AM EDT Height 165.1 cm (5' 5") 03/02/2024 8:29 AM EDT Body Mass Index 32.28 03/02/2024 8:29 AM EDT documented in this encounter Patient Instructions * Patient Instructions* Jeannine Pena, - 03/02/2024 9:02 AM EDT SLEEP APNEA We are concerned that you may have sleep apnea. Sleep apnea is when someone has difficulties with breathing only during sleep. This typically happens without the patient being aware they are having breathing issues. Obstructive sleep apnea is very common. It can be seen in kids and adults. It can cause symptoms of excessive daytime sleepiness, fatigue, morning headaches, and poor memory and cognition. It can also lead to difficulties at work or school and motor vehicle accidents. If left untreated, it puts people at risk for heart attacks, strokes, and diabetes. We diagnose sleep apnea with either an in-lab sleep study or a home sleep apnea test. If you come in for an in lab sleep study, a trained hemodialysis lab technician will be present at the sleep center to administer and monitor the test. They will be putting sensors on you that monitor your brain waves, breathing, movements, and respiratory effort. They will not be putting in any IV's or using any needles, a nd none of the sensors should be painful, though they may be annoying or uncomfortable to some patients when they are trying to sleep. You will have a private room with your own bathroom. Please feelfree to bring your own pillow or blanket if you feel this would help you sleep more comfortably. They provide these things for you, but we want you to feel as comfortable and relaxed as possible whenyou are spending the night in the sleep center. [facility] is accredited bythe [place] Academy of Sleep Medicine (AASM). To receive accreditation, a sleep center must meet or exceed all standards for professional quality sleep medicine care as designated by the Academy. More information can be obtained at: SleepEducation.org documented in this encounter Progress Notes * Jeannine Pena DO - 03/02/2024 8:38 AM EDT Sleep Medicine Evaluation [address] [place] [address] Consultation was requested by: Jaylen Mcwilliams MD for: risk factors for sleep apnea noted on Annual Wellness Visit: "Snores, fatigue, on blood pressure medication" and a copy of this report is being sent to the provider electronically. Relevant available records reviewed. HPI: Deb Bansal is a(n) 64 year old female presenting for evaluation for possible sleep apnea. Snoring and fatigue for a few years. Patient reports a typical bedtime of midnight - 1 AM. It takes varying times, sometimes hours, to fall asleep. Sometimes anxiety related to next day might keep her up. Patient awakens maybe once overnight, to go to the bathroom. It takes a while to return to sleep. Patient awakens for the day at varying times, usually by 8 AM, feeling still tired. Patient does get tired during the day, off and on. Often more tired after work. Patient does not take naps. Patient does occasionally have caffeine, occasional Diet Pepsi. The patient reports having ("+" indicates reports, "-" indicates denies): + Snoring, loudly, no snoring awakening - Observed apneas - Choking/gasping awakenings + Mouth breathing - Acid reflux at night + Nocturia sometimes Morning headaches probably Teeth grinding Restless Legs Syndrome Symptoms ("+" indicates reports, "-" indicates denies): - Urge to move legs at night + knee arthritis Parasomnias Symptoms ("+" indicates reports, "-" indicates denies): - Sleepwalking - Dream-enactment Narcoleptic Symptoms ("+" indicates reports, "-" indicates denies): - Vivid dreams - Sleep paralysis - Sleep-related hallucinations - Cataplexy Excessive Daytime Sleepiness: Fithian Sleepiness Scale 11 Modified F.O.S.Q. 21 + Drowsy driving, no related MVA or near-MVA + Sleepy with sedentary activity Fithian Sleepiness Scale Question 03/02/2024 8:33 AM EDT - Filed by Catrachita Avery LPN What is the chance you will doze off in the following situation? Sitting and reading Moderate chance of dozing Watching TV High chance of dozing Sitting inactive in a public place, such as a theater or meeting No chance of dozing As a passenger in a car for an hour without a break High chance of dozing Lying down to rest in the afternoon when circumstances permit High chance of dozing When sitting and talking to someone No chance of dozing When sitting quietly after lunch without alcohol No chance of dozing In a car, while stopped for a few minutes in traffic No chance of dozing Score (range: 0 - 24) 11 Functional Outcomes Of Sleep Question 03/02/2024 8:34 AM EDT - Filed by Catrachita Avery LPN Please complete the following questions. Do you have difficulty concentrating because you are sleepy or tired? Yes, extreme Do you have difficulty remembering things because you are sleepy or tired? Yes, extreme Do you have difficulty operating a motor vehicle for short distances (less than 100 miles) because you become sleepy? Yes, moderate Do you have difficulty operating a motor vehicle for long distances (more than 100 miles) because you become sleepy? Yes, moderate Do you have difficulty visiting family or friends in their home because you become sleepy or tired?No Has your relationship with family, friends, or work colleagues been affected because you are sleepyor tired? No Do you have difficulty watching a movie or video because you become sleepy or tired? Yes, extreme Do you have difficulty being as active as you want to be in the evening because you are tired or sleepy? Yes, moderate Do you have difficulty being as active as you want to be in the morning because you are tired or sleepy? Yes, moderate Has your mood been affected because you are sleepy or tired? Yes, moderate Score (range: 10 - 40) 21 Prior sleep study: 20+ years ago, PSG showed restless legs syndrome. She was never treated for restless legs. PMH: HTN, anxiety, depression, GERD Past Medical History: Diagnosis Date Arthralgia Dysphagia, [...] performed by Annette Berger DO at [facility] EGD, FLEXIBLE, DIAGNOSTIC 11/24/2018 erosive gastropathy/ESOPHAGOGASTRODUODENOSCOPY (EGD), FLEXIBLE, TRANSORAL, DIAGNOSTIC performed by Annette Berger DO at [facility] PARTIAL HYSTERECTOMY REMOVAL OF APPENDIX ALLERGIES: Review of patient's allergies indicates: No Known Allergies MEDS: Current Outpatient Medications Medication Sig Dispense Refill Rosuvastatin Calcium 20 MG Oral Tablet (Crestor) Take 1 Tablet by mouth in the morning. 90 Tablet 3 Citalopram Hydrobromide 40 MG Oral Tablet (CeleXA) Take 1 tablet by mouth in the evening 90 Tablet 2 hydroCHLOROthiazide 25 MG Oral Tablet (Hydrodiuril) Take 1 tablet by mouth once daily 90 Tablet 2 Metoprolol Tartrate 25 MG Oral Tablet (Lopressor) Take 1 tablet by mouth twice daily 180 Tablet 2 Lisinopril 40 MG Oral Tablet TAKE 1 TABLET BY MOUTH IN THE MORNING AND AT BEDTIME 180 Tablet 2 Aspirin 81 MG Oral Tablet Delayed Release Take 1 Tablet by mouth in the morning. Multiple Vitamin (MULTI VITAMIN DAILY) TABS Take by mouth. No current facility-administered medications for this visit. Additional ROS: + weight loss with watching her diet. Psych: anxiety has been stable lately (better since retiring) FHx: no known family history of sleep disordered breathing Sister does not sleep well. 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 GEN: Ambulatory, obese, NAD ORAL: + partial Tongue not enlarged High arched palate Oral mucous membranes moist OP: No thrush or lesions Uvula normal Soft palate normal Mallampati II Tonsils 2+ NECK: Circumference 15" RESP: Unlabored respirations Breath sounds clear, no wheezes or rales CVS: Regular rate and rhythm NEURO: Speech clear and appropriate IMPRESSION/RECOMMENDATIONS: Snoring, excessive sleepiness and fatigue, HTN - suspect DICKSON - STOP-BANG 4 (snoring, tired, HTN, and age > 50) - Discussed the pathophysiology, implications on short- and long-term health, diagnostic evaluation, and likely treatment options of DICKSON - Schedule an overnight PSG - split night protocol if meets criteria. - Avoid driving when sleepy/drowsy. - Briefly discussed PLMD in light of her reported prior PSG results; if her updated study does not show sleep apnea but is consistent with PLMD, we may recommend checking iron screen with ferritin, and may consider medication for PLMD. Follow-up: Return will send MyG with PSG results. | Check-out note: PSG [facility] Jeannine Pena DO documented in this encounter Nursing Notes * Catrachita Avery LPN - 03/02/2024 8:31 AM EDT Chief Complaint Patient presents with NEW PATIENT Snoring PSG: Approx 20+ years ago Neck: 15" Fithian Sleepiness Scale Question 03/02/2024 8:33 AM EDT - Filed by Catrachita Avery LPN What is the chance you will doze off in the following situation? Sitting and reading Moderate chance of dozing Watching TV High chance of dozing Sitting inactive in a public place, such as a theater or meeting No chance of dozing As a passenger in a car for an hour without a break High chance of dozing Lying down to rest in the afternoon when circumstances permit High chance of dozing When sitting and talking to someone No chance of dozing When sitting quietly after lunch without alcohol No chance of dozing In a car, while stopped for a few minutes in traffic No chance of dozing Score (range: 0 - 24) 11 Functional Outcomes Of Sleep Question 03/02/2024 8:34 AM EDT - Filed by Catrachita Avery LPN Please complete the following questions. Do you have difficulty concentrating because you are sleepy or tired? Yes, extreme Do you have difficulty remembering things because you are sleepy or tired? Yes, extreme Do you have difficulty operating a motor vehicle for short distances (less than 100 miles) because you become sleepy? Yes, moderate Do you have difficulty operating a motor vehicle for long distances (more than 100 miles) because you become sleepy? Yes, moderate Do you have difficulty visiting family or friends in their home because you become sleepy or tired?No Has your relationship with family, friends, or work colleagues been affected because you are sleepyor tired? No Do you have difficulty watching a movie or video because you become sleepy or tired? Yes, extreme Do you have difficulty being as active as you want to be in the evening because you are tired or sleepy? Yes, moderate Do you have difficulty being as active as you want to be in the morning because you are tired or sleepy? Yes, moderate Has your mood been affected because you are sleepy or tired? Yes, moderate Score (range: 10 - 40) 21 documented in this encounter Plan of Treatment Upcoming Encounters Date Type Department Care Team (Late st Contact Info) Description 03/16/2024 9:20 AM EDT Office Visit [facility] [address] [place] [address] Jaylen Mcwilliams MD [facility] [place] [address] 05/25/2024 1:30 PM EST Office Visit Cardiology, [facility] [address] [place] [address] Guerita Morris PA-C [address] [place] [address] 06/01/2024 11:00 AM EST Appointment Radiology, [address] [address] 06/10/2024 9:20 AM EST Office Visit Dermatology [facility] [address] [place] [phone] Mak Hazel PA-C [address] [place] [address] 06/22/2024 9:20 AM EST Office Visit Family Practice, [place] [id number] [place] [address] Jaylen Mcwilliams MD [address] [place] [address] 11/30/2024 1:10 PM EDT Office Visit Optometry, [place] [address] [place] [address] Barrett Kulkarni Jr., OD [address] [place] [address] 02/08/2025 9:00 AM EDT Nurse Only Ancillary [address] [phone] Have[place]ina, Nurse Annual Wellness [address] [address] Scheduled Orders Name Type Priority Associated Diagnoses Orde r Schedule SLEEP STUDY, W/O CPAP Procedures Routine Snoring Hypersomnolence Sleep apnea, unspecified type Essential hypertension with goal blood pressure less than 140/90 Ordered: 03/02/2024 SLEEP STUDY, W/ CPAP (TREATMENT SETTINGS) Procedures Routine Snoring Hypersomnolence Sleep apnea, unspecified type Essential hypertension with goal blood pressure less than 140/90 Ordered: 03/02/2024 Health Maintenance Due Date Last Done Comments [...] as of this encounter Visit Diagnoses Diagnosis Snoring- Primary Other dyspnea and respiratory abnormality Hypersomnolence Hypersomnia, unspecified Sleep apnea, unspecified type Essential hypertension with goal blood pressure less than 140/90 Screening mammogram for breast cancer documented in this encounter Care Teams Single Ending Machine Operator Relationship Specialty Start [place] [address] [place] [address] PCP - General Family Medicine 03/05/23 documented as of this encounter
--- OUTSIDE RECORDS SUMMARY | 2024-04-24 16:18 | External Medical Summary | Summary of Care ---
Author Name Unknown Organization [facility] Address [address] [facility] [place] [address] Phone [phone] Care Team Providers Care Steel Barrel Reamer Name Role Phone Jaylen Mcwilliams MD Primary Care Provider +1- [phone] Reason for Visit * Reason Onset Date Comments Order Request 03/08/2024 Encounter Details Date Type Department Care Team (Late st Contact Info) Description 03/08/2024 Telephone Pulmonary Medicine, [facility] [address] [place] [address] Jeannine Pena, [address] [facility] [place] [address] Order Request Allergies No known active allergiesdocumented [...] mRNA, LNP-s, No Pre serve, 2-Dose Series ([employer]) 10/30/2020,10/09/2020 COVID-19, MRNA-LNP, 23-24, P F, 30 MCG/0.3 mL, 12 YRS AND ABOVE, IM ([facility]) 05/12/2023 Seasonal Influenza Virus Vac cine, Unspecified [...] encounter Miscellaneous Notes * Telephone Encounter - Lorena Crowder OSA - 03/17/2024 3:42 PM EDT Patient call in stating that [facility] Has not receive patient orders for her sleep study . She ask if this can be fax again to them. Please advice Thank you scheduling services * Telephone Encounter - Annette Church OSA - 03/08/2024 1:11 PM EDT Faxed demographics, Orders, and progress notes to [facility] Waiting to hear back about an appt documented in this encounter Plan of Treatment Upcoming Encounters Date Type Department Care Team (Late st Contact Info) Description 03/25/2024 9:00 AM EDT Telemedicine Psychology Viktor Coreas [address] [place] [address] Fely Siddiqui, [employer]ER [address] [place] [address] 03/31/2024 8:30 AM EDT Office Visit Cardiology, [facility] [address] [place] [address] Guerita Morris PA-C [address] [place] [address] 04/06/2024 11:00 AM EDT Telemedicine Psychology Viktor Coreas [address] [place] [address] Fely Siddiqui, PLAQUE MAKER [address] [place] [address] 06/01/2024 11:00 AM EST Appointment [facility], [address] [address] 06/10/2024 9:20 AM EST Office Visit Dermatology [address] [phone] Mak Hazel PA-C [address] [place] [address] 06/22/2024 9:20 AM EST Office Visit [address] [address] Jaylen Mcwilliams MD [address] [place] [address] 09/21/2024 8:00 AM EST Office Visit [address] [address] Jaylen Mcwilliams MD [address] [place] [address] 11/30/2024 1:10 PM EDT Office Visit Optometry[address] [address] Barrett Kulkarni Jr., OD [address] [place] [address] 02/08/2025 9:00 AM EDT Nurse Only Ancillary [address] [phone] Jessy, Nurse Annual Wellness [address] [address] Health Maintenance Due Date Last Done Comments [...] filedocumented as of this encounter Care Teams Steel Barrel Reamer Relationship Specialty Start Date End Date Jaylen Mcwilliams MD [address] [place] [address] PCP - General Family Medicine 03/05/23 documented as of this encounter
--- OUTSIDE RECORDS SUMMARY | 2024-04-24 16:18 | External Medical Summary | Summary of Care ---
Author Name Unknown Organization [facility] Address [address] [place] [address] Phone [phone] Care Team Providers Care Shuttlecock Assembler Name Role Phone Jaylen Mcwilliams MD Primary Care Provider [phone]- [phone] Reason for Visit * Reason Onset Date Comments Health Maintenance 01/12/2024 Encounter Details Date Type Department Care Team (Late st Contact Info) Description 01/12/2024 Telephone [facility] [address] [place], [place] [id number] Jaylen Mcwilliams MD [address] [place] [address] Health Maintenance Allergies No known active allergiesdocumented as of this encounter (statuses as of 01/12/2024) Medications Medication Sig Dispensed Refills Start Date [...] as of this encounter (statuses as of 01/12/2024) Active Problems Problem Noted Date Diagnosed Date [...] as of this encounter (statuses as of 01/12/2024) Resolved Problems Problem Noted Date Diagnosed Date Resolved Date Closed nondisplaced fracture of proximal phalanx of lesser toe of right foot 09/04/2022 12/0 02/2023 Essential hypertension with goal blood pressure less than 130/80 03/18/2019 10/27/2019 Family history of ischemic heart disease 07/24/2015 03/18/2019 documented as of this encounter (statuses as of 01/12/2024) Immunizations Name Administration Dates Next Due COVID-19 mRNA, LNP-s, No Pre serve, 2-Dose Series ([employer]) 10/30/2020,10/09/2020 COVID-19, MRNA-LNP, 23-24, P F, 30 MCG/0.3 mL, 12 YRS AND ABOVE, IM ([employer]) 05/12/2023 Seasonal Influenza Virus Vac cine, Unspecified [...] encounter Miscellaneous Notes * Telephone Encounter - Huma Ge LPN - 01/12/2024 3:17 PM EDT Care Gaps Comprehensive Care Outreach Last Office/Telemedicine Visit: 12/10/2023 (in office), Visit date not found (telemedicine) Next Office Visit: 03/16/2024 Hemoglobin AIC Results: No results found for: "HEMOGLOBIN A1C" BP Readings from Last 1 Encounters: 12/10/23 100/60 Reviewed Health Maintenance below: Health Maintenance Topic Date Due DTaP,Tdap,and Td Vaccines (1 - Tdap) Never done Pneumococcal Vaccine: 65+ Years (1 of 1 - PCV) Never done COVID-19 Vaccine ( season) 2023 Care Gap Outreach Action Taken: Gnzot message sent AWV due. documented in this encounter Plan of Treatment Upcoming Encounters Date Type Department Care Team (Late st Contact Info) Description 01/20/2024 11:00 AM EDT Telemedicine [address] [phone] Mindi Gonzalez [address] [address] 01/27/2024 11:00 AM EDT Office Visit Audiology, [facility] [address] [place] [address] Norm Amin Au.D. [address] [place] [address] 02/03/2024 11:00 AM EDT Telemedicine [address] [phone] Mindi Gonzalez [address] [address] 03/09/2024 2:00 PM EDT Office Visit Cardiology, [facility] [address] [facility] [place] [address] Romana Mckoy CRNP [address] [facility] [place] [address] 03/16/2024 9:20 AM EDT Office Visit [address] [address] Jaylen Mcwilliams MD [address] [place] [address] 06/10/2024 9:20 AM EST Office Visit Dermatology [facility] [address] [place] [phone] Mak Hazel PA-C [address] [place] [address] 06/22/2024 9:20 AM EST Office Visit [address] [address] Jaylen Mcwilliams MD [address] [place] [address] 11/30/2024 1:10 PM EDT Office Visit Optometry, [facility] [address] [place] [address] Barrett Kulkarni Jr., OD [address] [place] [address] Health Maintenance Due Date Last Done Comments DTaP,Tdap,and Td Vaccines (1 - Tdap) 1977 Cologuard 2003 Fecal Occult Blood Test 2003 Sigmoidoscopy 2003 Pneumococcal Vaccine: 65+ Years (1 of 1 - PCV) 2023 COVID-19 Vaccine ( - 2023-24 season) 2023 05/12/2023, 11/05/2021, 05/15/2021, Additional history exists Mammogram 05/29/2024 05/29/2023, 04/20, 04/23/2022, Additional history exists Colonoscopy 07/08/2024 07/08/2019, 10/14/2011 Colorectal Cancer Screening 07/08/2024 GFR 12/25/2024 12/26/2023, 06/21, 06/04/2022, Additional history exists Depression Monitoring 01/05/2025 01/06/2024 Albumin/Creatinine Ratio 06/04/2025 06/04/2022 Diabetes Screening 12/25/2026 12/26/2023, 1 , 06/04/2022, Additional history exists Lipid Panel 12/25/2028 12/26/2023, 06/21, 06/04/2022, Additional history exists DXA Scan 07/18/2033 07/18/2023 RETIRED - COLONOSCOPY-EVERY 5 YRS AGES 18-100 Discontinued 07/08/2019, 10/14/2011 Zoster Vaccines Completed 01/01/2021, 05/02/2020 Influenza Vaccine (FLU shot) Completed 06/10/2023, 05/02/2020, 05/02/2020 GARDASIL-HPV IMMUNIZATION SERIES Aged Out No longer eligible based on patient's age to complete this topic Hepatitis B Aged Out No longer eligi ble based on patient's age to complete this topic MENINGOCOCCAL (MENACTRA/MENVEO) Aged Out No longer eligible based on patient's age to complete this topic documented as of this encounter Medical Devices Not on filedocumented as of this encounter Care Teams Shuttlecock Assembler Relationship Specialty Start Date End Date Jaylen Mcwilliams MD [address] [place] [address] PCP - General Family Medicine 03/05/23 documented as of this encounter
--- OUTSIDE RECORDS SUMMARY | 2024-04-24 16:18 | External Medical Summary | Summary of Care ---
Author Name Unknown Organization [facility] Address [address] [place] [address] Phone [phone] Care Team Providers Care Snap Attacher Name Role Phone Jaylen Mcwilliams MD Primary Care Provider [phone] Reason for Referral * Evaluate & Treat - Unlimited Visits (Within 10 days (routine)) - Authorized Specialty Diagnoses / Procedures Referred By Catalina garcia Referred To Contact Sleep Medicine / Sleep Disorders Diagnoses Sleep concern Jaylen Mcwilliams MD [facility] [place] [address] Referral ID Status Reason Start Date Expiration Date Visits Requested Visits Authorized [id number] Authorized Specialty Services Required 02/05/2024 2 2 Question Answer Referral Priority Within 10 days (routine) Where should this appointment be scheduled? Page [facility] SLEEP MED ADULT REFERRAL Sleep Apnea Testing and Management Does the patient snore and/or gasp at night or has been told they stop breathing at night? Yes, document patient's symptoms in progress note Comments Snores, fatigue, on blood pressure medication Reason for Visit * Reason Onset Date Comments Adult Annual Wellness Visit, Initial Visit Adult Annual Wellness Visit, Initial Visit 02/04 Encounter Details Date Type Department Care Team ([facility] Contact Info) Description 02/05/2024 9:00 AM EDT [facility] [address] [place] [address] LORI Kimble [phone] Jessy, Nurse Annual Wellness [address] [place] [address] Adult Annual Wellness Visit, Initial Visit... Allergies No known active allergiesdocumented as of this encounter (statuses as of 02/05/2024) Medications Medication Sig Dispensed Refills Start Date [...] as of this encounter (statuses as of 02/05/2024) Active Problems Problem Noted Date Diagnosed Date [...] as of this encounter (statuses as of 02/05/2024) Resolved Problems Problem Noted Date Diagnosed Date Resolved Date Closed nondisplaced fracture of proximal phalanx of lesser toe of right foot 09/04/2022 12/02/2023 Essential hypertension with goal blood pressure less than 130/80 03/18/2019 10/27/2019 Family history of ischemic heart disease 07/24/2015 03/18/2019 documented as of this encounter (statuses as of 02/05/2024) Immunizations Name Administration Dates Next Due COVID-19 mRNA, LNP-s, No Pre serve, 2-Dose Series (Plexisoft) 10/30/2020,10/09/2020 COVID-19, MRNA-LNP, 23-24, P F, 30 MCG/0.3 mL, 12 YRS AND ABOVE, IM (PFIZER-Comirnaty) 05/12/2023 Seasonal Influenza Virus Vac cine, Unspecified [...] Sign Reading Time Taken Comments Blood Pressure 118/80 02/05/2024 9:10 AM EDT Pulse 72 02/05/2024 9:10 AM EDT Temperature 36.8 C (98.2 F) 02/05/2024 9:10 AM ED T Respiratory Rate 16 02/05/2024 9:10 AM EDT Oxygen Saturation 97% 02/05/2024 9:10 AM EDT Inhaled Oxygen Concentration - - Weight 88.3 kg (194 lb 9.6 oz) 02/05/2024 9:10 A M EDT Height 165.1 cm (5' 5") 02/05/2024 9:10 AM EDT Body Mass Index 32.38 02/05/2024 9:10 AM EDT documented in this encounter Patient Instructions * Patient Instructions* Lizette Renteria RN - 02/05/2024 9:01 AM EDT Hi Ms. Bansal, As your primary care physician, I know that regular visits with my patients who have several chronic conditions can go a long way in helping you stay healthy. Many times, the clinic team and I are in touch with you and/or other care team members between office visits to adjust medications, discuss any changes in your health, and review our care plan to make sure it is still meeting your needs. I am dedicated to helping you take a more active role in your overall care. It is important that there are resources available to you, so I created a personalized plan of care with a Health Calendar for you, which is included on the next page of this letter. Below is a list that summarizes your electronic health record: Health Maintenance Due: Health Maintenance Due Topic Date Due DTaP,Tdap,and Td Vaccines (1 - Tdap) Never done Pneumococcal Vaccine: 65+ Years (1 of 1 - PCV) Never done COVID-19 Vaccine (2022- season) 2023 Current Medication List: (as of Visit date not found (in office), Visit date not found (telemedicine) ) Current Outpatient Medications Medication Sig Dispense Refill Aspirin 81 MG Oral Tablet Delayed Release Take 1 Tablet by mouth in the morning. Multiple Vitamin (MULTI VITAMIN DAILY) TABS Take by mouth. Lisinopril 40 MG Oral Tablet TAKE 1 TABLET BY MOUTH IN THE MORNING AND AT BEDTIME 180 Tablet 2 hydroCHLOROthiazide 25 MG Oral Tablet (Hydrodiuril) Take 1 tablet by mouth once daily 90 Tablet2 Metoprolol Tartrate 25 MG Oral Tablet (Lopressor) Take 1 tablet by mouth twice daily 180 Tablet2 Citalopram Hydrobromide 40 MG Oral Tablet (CeleXA) Take 1 tablet by mouth in the evening 90 Tablet 2 Rosuvastatin Calcium 20 MG Oral Tablet (Crestor) Take 1 Tablet by mouth in the morning. 90 Tablet 3 No current facility-administered medications for this visit. Current List of Allergies: (as of Visit date not found (in office), Visit date not found (telemedicine) ) Review of patient's allergies indicates: No Known Allergies Most Recent Lab Results: Results for orders placed or performed in visit on 12/26/23 CBC Result Value Ref Range WBC 5.96 4.00 - 10.80 K/uL RBC 4.51 3.85 - 5.15 M/uL HGB 13.7 12.0 - 15.3 g/dL HCT 42.5 36.0 - 45.2 % MCV 94.2 81.5 - 97.5 fL MCH 30.4 27.0 - 34.0 pg MCHC 32.2 32.0 - 36.0 g/dL RDW 12.8 11.5 - 15.5 % PLT 221 140 - 400 K/uL MPV 11.7 6.6 - 11.1 fL nRBCs 0 <=0 /100 WBCs COMPREHENSIVE METABOLIC PANEL Result Value Ref Range BUN 19 6 - 20 mg/dL Creatinine 0.8 0.5 - 1.0 mg/dL Estimated Glomerular Filtration Rate 81 >=60 mL/min Sodium 141 135 - 146 mmol/L Potassium 4.4 3.5 - 5.1 mmol/L Chloride 104 98 - 107 mmol/L CO2 27 22 - 32 mmol/L Anion Gap 10 7 - 15 mmol/L Glucose 96 70 - 120 mg/dL Albumin 4.0 3.8 - 5.0 g/dL AST 23 10 - 35 U/L Alkaline Phosphatase 61 35 - 130 U/L Bilirubin, Total 0.4 <=1.2 mg/dL Calcium 9.9 8.4 - 10.2 mg/dL Protein 6.6 6.0 - 8.3 g/dL ALT 30 10 - 35 U/L LIPID PANEL WITH DIRECT LDL IF TG IS HIGH Result Value Ref Range Triglycerides 97 <=174 mg/dL Cholesterol 148 <200 mg/dL HDL Cholesterol 52 >49 mg/dL Non-HDL Cholesterol 96 <=159 mg/dL LDL Cholesterol 77 <=129 mg/dL TSH WITH FREE T4 IF INDICATED Result Value Ref Range TSH 1.84 0.27 - 4.20 uIU/mL Sincerely, Jaylen Mcwilliams MD 02/05/2024 [facility] Calendar (as of Visit date not found (in office), Visit date not found (telemedicine) ) Care needs Care needs Last completed Due next Diphtheria, tetanus & pertussis vaccines (1 - Tdap) --- Never done Pneumonia vaccine (1 of - PCV) --- Never done COVID-19 Vaccine (2022- season) 2023 09/12/2023 Flu vaccine (recommended) (1) 06/10/2023 03/21/2024 Mammogram 05/29/2023 05/29/2024 Colorectal cancer screening (colonoscopy 10 years, sigmoidoscopy 5 years, Cologuard 3 years, stool sample 1 year) 07/08/2019 07/08/2024 Kidney Function Test 12/26/2023 12/25/2024 Urine albumin/creatinine test 06/04/2022 06/04/2025 Diabetes Screening 12/26/2023 12/25/2026 Lipid (cholesterol) disorder screening 12/26/2023 12/25/2028 Bone Density 07/18/2023 07/18/2033 As you look over the recommended services, be sure to check with your insurance company to determine what's covered. [employer] is a great tool that helps you review your medical record online, including test results, doctor notes and your health summary. You can also schedule appointments with me and other members of your care team, request prescription refills and ask for advice related to your medical conditions at [email or web address]. Patient Instructions - Fall Prevention (This education is for all patients over 65 regardless of symptoms) Remember to take your current medications as prescribed. In order to prevent falls, you are encouraged to: Exercise Utilize assistive/adaptive devices Avoid multifocal lenses when walking Avoid hazards in home Maintain a regular toileting schedule Any questions please contact our office. Preventing Falls in the Home (This education is for all patients over 65 regardless of symptoms) As you get older, falls are more likely. Thats because your reaction time slows. Your muscles and joints may also get stiffer, making them less flexible. Illness, medications, and vision changes can also affect your balance. A fall could leave you unable to live on your own. To make your home safer, follow these tips: Floors Put nonskid pads under area rugs Remove throw rugs Replace worn floor coverings Tack carpets firmly to each step on carpeted stairs. Put nonskid strips on the edges of uncarpeted stairs Keep floors and stairs free of clutter and cords Arrange furniture so there are clear pathways Clean up any spills right away Bathrooms Install grab bars in the tub or shower Apply nonskid strips or put a nonskid rubber mat in the tub or shower Sit on a bath chair to bathe Use bathmats with nonskid backing Lighting Keep a flashlight in each room Put a nightlight along the pathway between the bedroom and the bathroom [facility] Patient Education Copyright 2008 - 2010 Sonya except where otherwise noted Preventing Falls: Exercises to Improve Balance, Flexibility, Strength, and Staying Power (This education is for all patients over 65 regardless of symptoms) Certain types of exercises may help make you less likely to fall. Try the ones below. Or do other exercises that your healthcare provider suggests. Depending on your health, you may need to start slowly. Dont let that stop you. Even small amounts of exercise can help you. Be sure to talk to yourhealthcare provider before starting any exercise program. Improve Balance Many types of exercise can help improve balance. Maria Eugenia chi and yoga are good examples. Heres another one to try. You can do it anytime and almost anywhere. Stand next to a counter or solid support. Push yourself up onto your tiptoes. Hold for 5 seconds. If you start to lose your balance, hold on to the counter. Rest and repeat 5 times. Work up to holding for 20 to 30 seconds, if you can. Increase Flexibility Being more flexible makes it easier for you to move around safely. Try exercises like the seated hamstring stretch. Sit in a chair and put one foot on a stool. Straighten your leg and reach with both hands down either side of your leg. Reach as far down your leg as you can. Hold for about 20 seconds. Go back to the starting position. Then repeat 5 times. Switch legs. Build Strength Resistance exercises help build strength. You can do them without equipment. Or you can use weights, elastic bands, or special machines. One such exercise is called the biceps curl. You can hold a 1 pound weight or even a can of soup. Do this exercise at least 3 times a week. Strive for everyday. Sit up straight in a chair. Keep your elbow close to your body and your wrist straight. Bend your arm, moving your hand up to your shoulder. Then slowly lower your arm. Repeat 5 times. Switch to the other arm. Build Your Staying Power Aerobic exercises make your heart and lungs stronger so you can keep moving longer. Walking and swimming are two of the best types of exercises you can do. Using a stationary bike is great, too. Find an aerobic exercise that you enjoy. Start slowly and build up. Even 5 minutes is helpful. Aimfor a goal of 30 minutes, at least 3 times a week. You dont have to do 30 minutes in one session. Break it up and walk a little throughout the day. More Helpful Tips Start easy. Slowly work up to doing more. Talk with your healthcare provider about the best exercises for you. Call senior centers or health clubs about exercise programs. If needed, have a family member watch you walk every so often to check your stability. Exercise with a friend. Choose an activity you both enjoy. Try exercises that you can do anytime, anywhere. Here are two examples. Have someone with you when you first try these: Practice walking by placing one foot right in front of the other. Stand up and sit down 10 times. Repeat this throughout the day. [employer] Patient Education Copyright 2008 [employer] except where otherwise noted. Preventing Falls: Moving Safely Using a Cane or Walker (This education is for all patients over 65 regardless of symptoms) Keep the cane away from your feet so you dont trip. A walking aid, such as a cane or walker, can help you stay more independent and avoid falls. Remember to keep your walking aid within easy reach when youre in a chair or in bed. And learn how to use it safely so you dont injure yourself. Using a Cane If you have a stronger side, hold the cane on that side. Get your balance. Move the cane and your weaker leg forward. Support your weight on both the cane and your weaker side. Step with your stronger leg. Start again from step 1. If youre using a folding walker, be sure you know how to lock it open. Check that its locked open before each use. Using a Walker Roll the walker (or lift it, if youre using one without wheels) forward about 12 inches. Step forward with your weaker leg first. Use the walker to help keep your balance. Bring your other foot forward to the center of the walker. Start again from step 1. Helpful Tips Check with your healthcare provider about the right walking aid to use. Ask about a walker with a seat attached. Check the tips of your cane or walker to make sure they have nonskid covers. Move slowly from room to room. Dont blank. Sit down to get dressed. Use a ritika pack or backpack to keep your hands free. Get help for jobs that mean climbing, even on a stepstool. [employer] Patient Education Copyright 2008 - 2010 [employer] except where otherwise noted. Urinary Incontinence Plan of Care Documentation: (This education is for all patients over 65 regardless of symptoms) Current medications reconciled. Patient encouraged to: Practice kegal exercises Provide education materials Use the restroom every 2 hours throughout the day Limit caffeine, alcohol, spicy foods and acidic foods Keep a bladder diary Limit fluid intake 3-4 hours before bed Lose weight Prevent constipation Take fluid pills at a time when you can get to the bathroom quickly Control sugar better if diabetic Limit fluid intake to 60 oz. per day Wear support stockings (TEDs)if you have edema Lizette Renteria RN 02/05/2024 Kegel Exercises Kegel exercises dont require special clothing or equipment. Theyre easy to learn and simple to do. And if you do them right, no one can tell youre doing them, so they can be done almost anywhere. Your doctor, nurse, or physical therapist can answer any questions you have and help you get started. A Weak Pelvic Floor The pelvic floor muscles may weaken due to aging, and vaginal childbirth, injury, surgery, chronic cough, or lack of exercise. If the pelvic floor is weak, your bladder and other pelvic organs may sag out of place. The urethra may also open too easily and allow urine to leak out. Kegel exercises can help you strengthen your pelvic floor muscles so they can better support the pelvic organs and control urine flow. How Kegel Exercises Are Done Try each of the Kegel exercises described below. When youre doing them, try not to move your leg, buttock, or stomach muscles. While youre urinating, try to stop the flow of urine. Start and stop it as often as you can. Contract as if you were stopping your urine stream, but do it when youre not urinating. Tighten your rectum as if trying not to pass gas. Contract your anus, but dont move your buttocks. Helpful Hints Do your Kegels as often as you can. The more you do them, the faster youll feel the results. Pick an activity you do often as a reminder. For instance, do your Kegels every time you sit down. Tighten your pelvic floor before you sneeze, get up from a chair, cough, laugh, or lift. This protects your pelvic floor from injury and can help prevent urine leakage. Try to hold each Kegel for a slow count to five. You probably wont be able to hold them for thatlong at first, but keep practicing. It will get easier as your pelvic floor gets stronger. Eventually, special weights that you place in your vagina may be recommended to help make your Kegels even more effective. [employer] Patient Education Copyright 2008 - 2010 [employer] except where otherwise noted. Here are some helpful tips for your urinary incontinence: (This education is for all patients over 65 regardless of symptoms) Practice Kegel exercises Use the restroom every 2 hours throughout the day Limit caffeine, alcohol, spicy foods, and acidic foods Keep a bladder diary Limit fluid intake 3-4 hours before bed Lose weight Prevent constipation Take fluid pills at a time when can get to the bathroom quickly Control sugar better if diabetic Limit fluid intake to 60 oz. per day Any questions, please feel free to contact our office. documented in this encounter Progress Notes * Lizette Renteria RN - 02/05/2024 8:59 AM EDT AD8 Dementia Screening Interview Person answering questions: patient Remember, "Yes, a change" indicates that there has been a change in the last several years caused by cognitive (thinking and memory) problems 1. Problems with judgement (eg: problems making decisions, bad financial decisions, problems with thinking). No (0) 2. Less interest in hobbies/activities. No (0) 3. Repeats the same things over and over (questions, stories, or statements). Yes (1) 4. Trouble learning how to use a tool, appliance, or gadget (eg: VCR, computer, microwave, remote control). No (0) 5. Forgets correct month or year. No (0) 6. Trouble handling complicated financial affairs (eg: balancing checkbook, income taxes, paying bills). No (0) 7. Trouble remembering appointments. No (0) 8. Daily problems with thinking and/or memory. No (0) TOTAL AD8: 1 - AD8 Dementia Screening Score The final score is a sum of the number items marked "Yes, A Change". 0 - 1: Normal cognition; 2 or greater: Cognitive impairments is likely to be present - further testing required Adult Annual Wellness Visit: Deb Bansal is a 64 year old female who presents for an Adult Annual Wellness Visit. Depression Screening: Did the patient complete the screening questionnaire for Depression? Yes Is the patient's total score for Depression 15 or greater? No, no further intervention needed, unless requested by patient. Did the patient answer positively to the suicide question? No, no further intervention needed, unless requested by patient. In general, compared to other people your age, what would you say that your health is? Very Good Ht Readings from Last 1 Encounters: 02/05/24 1.651 m (5' 5") Wt Readings from Last 1 Encounters: 02/05/24 88.3 kg (194 lb 9.6 oz) Body Mass Index: BMI Greater than 30 Body mass index is 32.38 kg/m. BP Readings from Last 1 Encounters: 02/05/24 118/80 Medical/Surgical/Family History Reviewed: Yes Past Medical History: Diagnosis Date Arthralgia Dysphagia, [...] performed by Annette Berger DO at [facility] EGD, FLEXIBLE, DIAGNOSTIC 11/24/2018 erosive gastropathy/ESOPHAGOGASTRODUODENOSCOPY (EGD), FLEXIBLE, TRANSORAL, DIAGNOSTIC performed by Annette Berger DO at [facility] PARTIAL HYSTERECTOMY REMOVAL OF APPENDIX Family History Problem Relation Name Age of Onset Heart Disorder Mother [place] x 2 Skin cancer Brother Has patient ever had cancer? No Social History Tobacco Use Smoking status: Never Smokeless tobacco: Never Substance Use Topics Alcohol use: Yes Comment: 2 drinks every other week Vaping/E-Cigarette Use Vaping/E-Cigarette Use Never User Vaping/E-Cigarette Substances Vaping/E-Cigarette Devices Tobacco/Alcohol screening completed today? Yes Hospital Care: Admissions (within the last year): Not Applicable ER within 30 days: No Does the patient have an Advance Directives/Living Will? Yes, patient asked to bring in a copy for medical record Last Physical Exam: Last physical exam: 12/10/2023 Does patient see primary provider regularly? Yes Does patient see other providers? Yes, Specialist Patient Care Team updated? Yes Review of patient's allergies indicates: No Known Allergies Immunization History Administered Date(s) Administered COVID-19 mRNA, LNP-s, No Preserve, 2-Dose Series (Moderna) 05/15/2021, 11/05/2021 COVID-19 mRNA, LNP-s, No Preserve, 2-Dose Series (Pfizer) 10/09/2020, 10/30/2020 COVID-19, MRNA-LNP, 23-24, PF, 30 MCG/0.3 mL, 12 YRS AND ABOVE, IM ([employer]- ComirnatRuangguru) 05/12/2023 Seasonal Influenza Virus Vaccine, Unspecified Formulation 05/02/2020 Seasonal Influenza, PF, 6 M & above, IM , (FluLaval or Fluzone) 05/02/2020, 06/10/2023 Zoster Vaccine Recombinant (Shingrix) 05/02/2020, 01/01/2021 Current Outpatient Medications Medication Sig Dispense Refill Aspirin 81 MG Oral Tablet Delayed Release [...] No current facility-administered medications for this visit. Patient Active Problem List Diagnosis GERD (gastroesophageal reflux disease) Obesity, Class II, BMI 35-39.9, isolated (see actual BMI) LALIT (generalized anxiety disorder) Mild episode of recurrent major depressive disorder (HCC) Essential hypertension with goal blood pressure less than 140/90 Mixed hyperlipidemia Moderate episode of recurrent major depressive disorder (HCC) Medication Compliance: Patient is able to obtain all of her medications? Yes Patient takes medications as prescribed? Yes Patient manages own medications: Yes Patient uses a pill box? Yes, refill(s) completed by self Dental Exam: Yes: Every 6 Months Eye Screening: Yes: Every year Are you having trouble with hearing? Yes Do you use an assistive device to help your hearing? Yes Exercise Screening: daily exercise, walks and works 4 days a week Nutrition Assessment: Eats a balanced diet and 2 meals a day Pain Screening: Are you having any pain? No Sleep Screening Tool 'STOP': Do you snore? Yes Do you feel fatigued during the day? Yes Do you wake up feeling like you haven't slept? Yes Have you been told you stop breathing at night? No Do you gasp for air or choke while sleeping? No Have you been told you have Sleep Apnea? No Do you have high blood pressure or are on medication(s) to control high blood pressure? Yes SCORE: If you check YES to two or more questions, make a referral for Obstructive Sleep Apnea, sleep medicine referral placed Patient and Caregiver Support System: Patient lives with a spouse Means of Transportation: Drives. Not a concern. Patient lives in One Story - with basement stairs: with railing Community Resources: Not Applicable Functional Status and ADL Skills: Has patient ever had an amputation? No Functional Assessment: 100- Normal, no complaints, no evidence of disease Ambulation: Patient ambulates without assistive device. Independent Dressing: Gets clothes and dresses without any assistance: Independent Able to move freely in chair or bed including turning over: Independent Repositioning (bed or chair): Not applicable Transfers: Independent Toileting: Goes to bathroom, uses toilet, arranges clothes and returns without any assistance: Independent Toileting: continent of bladder and continent of bowel Feeding: Self Bathing: Self; tub with a shower, with grab bars, no chair Requires none assistance with ADLs. Instrumental ADL's: Shopping: Independent Housekeeping: Independent Handling Finances: Independent DME Vendor Name: Not Applicable Fall Risk Assessment: Can the patient demonstrate that she can stand from a sitting position? Yes Has the patient had a fall within the last 6 months? No Does the patient have a problem with her gait or balance? No Does the patient take 4 or more prescription medicines? Yes Does the patient use sedatives or narcotics? No Fall Risk Factors Present: Uses more than 4 medications Visually impaired Zed-Gz-wbm-Go Test: Time began at 0900. Patient stood from sitting position and walked approximately 10 feet, returned and sat down. Total time for rlq-mk-[id number]-go test was 8 seconds. Ryo-Zw-ggm-Go Test completed? Yes Gender Specific Preventative Plan: Health Maintenance Topic Date Due DTaP,Tdap,and Td Vaccines (1 - Tdap) Never done Pneumococcal Vaccine: 65+ Years (1 of 1 - PCV) Never done COVID-19 Vaccine (6 - season) 2023 Influenza Vaccine (FLU shot) (1) 03/21/2024 Mammogram 05/29/2024 Colorectal Cancer Screening 07/08/2024 GFR 12/25/2024 Depression Monitoring 02/04/2025 Albumin/Creatinine Ratio 06/04/2025 Diabetes Screening 12/25/2026 Lipid Panel 12/25/2028 DXA Scan 07/18/2033 Zoster Vaccines Completed Hepatitis B Vaccine Aged Out MENINGOCOCCAL (MENACTRA/MENVEO) Aged Out HPV (Gardasil) Vaccine Aged Out RETIRED - COLONOSCOPY-EVERY 5 YRS AGES 18-100 Discontinued Patient has been verbally educated on the need or importance of Breast Cancer Screening, Cholesterol, Colon Cancer Screening, Creatinine, Dexa Scan, GFR, Glucose, Hemoglobin, Hemoglobin A1c, and Immunizations: COVID, Flu, TDAP, PNA, Shingles Pt has completed the covid vaccines: Yes, x5 Routine general medical examination at a health care facility (Primary) Mixed hyperlipidemia Lab Results Component Value Date/Time LDL (CALCULATED)-OUTSIDE LAB 150 (A) 12/19/2017 12:00 AM LDL CHOLESTEROL (CALCULATED) - [facility] 77 12/26/2023 08:01 AM LDL CHOLESTEROL (CALCULATED) - [facility] 130 (H) 10/28/2019 09:33 AM LDL CHOLESTEROL (DIRECT MEASURE) - [facility] NOT APPLICABLE 10/28/2019 09:33 AM - Med reconciliation completed and compliance discussed. - pt to continue present medications. Essential hypertension with goal blood pressure less than 140/90 BP Readings from Last 3 Encounters: 02/05/24 118/80 12/10/23 100/60 11/27/23 110/68 ]- Med reconciliation completed and compliance discussed. - pt to continue present medications. Gastroesophageal reflux disease, unspecified whether esophagitis present Obesity, Class II, BMI 35-39.9, isolated (see actual BMI) Body mass index is 32.38 kg/m. LALIT (generalized anxiety disorder) - Med reconciliation completed and compliance discussed. - pt to continue present medications. Mild episode of recurrent major depressive disorder (HCC) - Med reconciliation completed and compliance discussed. - pt to continue present medications. Follow Up: Return in 1 year (on 02/04/2025) for 12 month Subsequent Adult Wellness Visit. | For: 12 month Subsequent Adult Wellness Visit | Check-out note: 12 month Subsequent Adult Wellness Visit Would patient like to schedule next AWV visit? Yes Lizette Renteria RN Urinary Incontinence Plan of Care Documentation: (This education is for all patients over 65 regardless of symptoms) Current medications reconciled. Patient encouraged to: Practice kegal exercises Provide education materials Use the restroom every 2 hours throughout the day Limit caffeine, alcohol, spicy foods and acidic foods Keep a bladder diary Limit fluid intake 3-4 hours before bed Lose weight Prevent constipation Take fluid pills at a time when you can get to the bathroom quickly Control sugar better if diabetic Limit fluid intake to 60 oz. per day Wear support stockings (TEDs)if you have edema Lizette Renteria RN 02/05/2024 documented in this encounter Miscellaneous Notes * Pt Handout (on AVS) - Lizette Renteria RN - 02/05/2024 10:30 AM EDT Images from the original note were not included. [id number] Exercises to Prevent Falls Certain types of exercises may help make you less likely to fall. Try the ones below or do other exercises that your healthcare provider suggests. Depending on your health, you may need to start slowly. Don't let that stop you. Even small amountsof exercise can help you. Talk with your healthcare provider before starting any exercise program. Improve balance Many types of exercise can help improve balance. Maria Eugenia chi and yoga are good examples. Here's anotherone to try. You can do it anytime and almost anywhere. Stand next to a counter or solid support. Push yourself up onto your tiptoes. Hold for 5 seconds. If you start to lose your balance, hold on to the counter. Rest and repeat 5 times. Work up to holding for 20 to 30 seconds, if you can. Increase flexibility Being more flexible makes it easier for you to move around safely. Try exercises like the seatedhamstring stretch. o Sit in a chair and put one foot on a stool. o Straighten your leg and reach with both hands down either side of your leg. Reach as far down your leg as you can. o Hold for about 20 seconds. o Go back to the starting position. Then repeat 5 times. Switch legs. o o Build strength o Resistance exercises help build strength. You can do them without equipment. Or you can use weights, elastic bands, or special machines. One such exercise is called the biceps curl. You can hold a 1-pound weight or even a can of soup. Do this exercise at least 3 times a week. Strive for every day. Sit up straight in a chair. Keep your elbow close to your body and your wrist straight. Bend your arm, moving your hand up to your shoulder. Then slowly lower your arm. Repeat 5 times. Switch to the other arm. Build your staying power Aerobic exercises make your heart and lungs stronger so you can keep moving longer. Walking and swimming are 2 of the best types of exercises you can do. Using a stationary bike is great, too. Find an aerobic exercise that you enjoy. Start slowly and build up. Even 5 minutes is helpful. Aim for a goal of 30 minutes, at least 3 times a week. You don't have to do 30 minutes in 1 session. Break it up and walk a little throughout the day. Starting out safely and slowly Start easy. Slowly work up to doing more. Talk with your healthcare provider about the best exercises for you. Call senior centers or health clubs about exercise programs. If needed, have a family member watch you walk every so often to check your stability. Exercise with a friend. Choose an activity you both enjoy. Be sure to gently warm up and cool down. Drink fluids, such as water, to stay hydrated. If your provider recommended that you limit fluids, ask them how much is OK to drink while exercising. Consider maria eugenia chi or yoga to strengthen your balance. Try exercises that you can do anytime, anywhere. Here are 2 examples. Have someone with you whenyou first try these: o Practice walking by placing one foot right in front of the other. o Stand up and sit down 10 times. Repeat this throughout the day. Last Reviewed Date: 05/21/202219992535-7373 [employer]. All rights reserved. This information is not intended as a substitute for professional medical care. Always follow your healthcare professional's instructions. * Pt Handout (on AVS) - Lizette Renteria RN - 02/05/2024 10:29 AM EDT Images from the original note were not included. [id number] 5 Steps for Eating Healthier Changing the way you eat can improve your health. It can lower your cholesterol and blood pressure,and help you stay at a healthy weight. Your diet doesn?t have to be bland and boring to be healthy.Just watch your calories and follow these steps: Step 1. Eat fewer unhealthy fats Choose more fish and lean meats instead of fatty cuts of meat. Skip butter and lard, and use less margarine. Replace these with healthier fats, such as olive, canola, or avocado oils. Pass on foods that have palm, coconut, or partially hydrogenated oils. Eat fewer high-fat dairy foods like cheese, ice cream, and whole milk. Get a heart-healthy cookbook and try some new recipes. Step 2. Go light on salt Keep the saltshaker off the table. Limit high-salt ingredients, such as soy sauce, bouillon, and garlic salt. Instead of adding salt when cooking, season your food with herbs, spices, and other flavorings. Try lemon, garlic, onion, vinegar, or salt-free herb seasonings. Limit convenience foods, such as boxed or canned foods and restaurant food. Read food labels and choose lower-sodium options. Buy fresh, frozen, or canned vegetables that don't have added salt. Step 3. Limit sugar Pause before you add sugars to pancakes, cereal, coffee, or tea. This includes white and brown table sugar, syrup, honey, and molasses. Cut your usual amount by half. Swap out sugar-filled soda and other drinks. Buy sugar-free or low-calorie beverages. Remember, water is always the best choice. Try adding lemon juice to water for extra flavor. Read labels and choose foods with less added sugar. Keep in mind that dairy foods and foods withfruit will have some natural sugar. Cut the sugar in recipes by 1/3 to 1/2. Boost the flavor with extracts like almond, vanilla, or orange. Or add spices such as cinnamon or nutmeg. Step 4. Eat more fiber Eat fresh fruits and vegetables every day. Boost your diet with whole grains. Go for oats, whole-grain rice, and bran. Add beans and lentils to your meals. Drink more water to match your fiber increase to help prevent constipation. Step 5. Pay attention to serving sizes Remember that a serving size is a standard measurement. It will let you track the amount of fat,calories, and other nutrients in the food you eat. Read the Nutrition Facts label on packaged foods to learn their serving sizes. Use serving sizes to assess how much food you put on your plate. Pay attention to your portions.How many servings are you eating? Keep in mind that your needs may change if you?re more active or less active, or if you have other factors that change your calorie needs. Use your hand to help you measure serving sizes. For example: o 1 teaspoon: This is about the size of the first joint of your thumb. o 1 tablespoon: This is about the size of the first 2 joints of your thumb. o 1 ounce: This is about what you can fit in your cupped hand. o 2 to 3 ounces: This is about the size of the palm of your hand. o cup: This is also about what you can fit in your cupped hand. o 1 cup: This is about the size of your fist. Last Reviewed Date: 06/20/202219992575-0450 [employer]. All rights reserved. This information is not intended as a substitute for professional medical care. Always follow your healthcare professional's instructions. documented in this encounter Plan of Treatment Upcoming Encounters Date Type Department Care Team (Late st Contact Info) Description 02/17/2024 11:00 AM EDT Telemedicine Psychology, [facility] 8 [place] [phone] Mindi Gonzalez, [facility] 8 [place] [address] 03/02/2024 11:00 AM EDT Telemedicine Psychology, [facility] [phone] Mindi Gonzalez, [facility] 8 [place] [address] 03/09/2024 2:00 PM EDT [facility] Visit [facility] [place] [address] Romana Mckoy CRNP 132 [facility] [place] [address] 03/16/2024 9:20 AM EDT Office Visit [facility] [address] [place] [address] Jaylen Mcwilliams MD [address] [place] [address] 04/27/2024 3:00 PM EDT Office Visit Sleep Disorders [facility] 132 [facility] [place] [phone] Heather Knight DO [address] [place] [address] 06/10/2024 9:20 AM EST Office Visit Dermatology [facility] 68 [place] [phone] Mak Hazel PA-C 68 [place], [place] [phone] 06/22/2024 9:20 AM EST Office Visit [facility] [address] [place] [address] Jaylen Mcwilliams MD [address] [place] [address] 11/30/2024 1:10 PM EDT Office Visit Optometry, [address] [address] Barrett Kulkarni Jr., AROLDO 16 [place] [address] 02/08/2025 9:00 AM EDT Nurse Only Ancillary [address] [phone] [place], Nurse Annual Wellness [address] [address] Scheduled Referrals Name Type Priority Associated Diagnoses Orde r Schedule SLEEP MEDICINE REFERRAL OP Referral Within 10 days (routine) Sleep concern Ordered: 02/05/2024 Health Maintenance Due Date Last Done Comments [...] 06/21, 06/04/2022, Additional history exists Depression Monitoring 02/04/2025 02/05/2024 , 01/20/2024, 01/06/2024 Albumin/Creatinine Ratio 06/04/2025 06/04/2022 Diabetes Screening [...] as of this encounter Visit Diagnoses Diagnosis Routine general medical examination at a health care facility- Primary Mixed hyperlipidemia Essential hypertension with goal blood pressure less than 140/90 Gastroesophageal reflux disease, unspecified whether esophagitis present Obesity, Class II, BMI 35-39.9, isolated (see actual BMI) Morbid obesity LALIT (generalized anxiety disorder) Generalized anxiety disorder Mild episode of recurrent major depressive disorder (HCC) Risk and functional assessment Screening for unspecified condition Sleep concern Problems related to lack of adequate sleep documented in this encounter Care Teams Snap Attacher Relationship Specialty Start Date End Date Jaylen Mcwilliams MD [facility] [place] [address] PCP - General Family Medicine 03/05/23 documented as of this encounter
--- OUTSIDE RECORDS SUMMARY | 2024-04-24 16:18 | External Medical Summary | Summary of Care ---
Author Name Unknown Organization [facility] Address [address] [place] [place] [address] Phone [phone] Care Team Providers Care Weeder Name Role Phone Jaylen Mcwilliams MD Primary Care Provider [phone]- [phone] Reason for Visit * Reason Comments Follow Up Encounter Details Date Type Department Care Team (Late st Contact Info) Description 02/17/2024 11:00 AM EDT Telemedicine [facility], [facility] 8 [place] [address] Mindi Gonzalez [facility] 8 [place] [address] Adjustment disorder with mixed anxiety and depressed mood* Allergies No known active allergiesdocumented as of this encounter (statuses as of 02/19/2024) Medications Medication Sig Dispensed Refills Start Date [...] as of this encounter (statuses as of 02/19/2024) Active Problems Problem Noted Date Diagnosed Date [...] as of this encounter (statuses as of 02/19/2024) Resolved Problems Problem Noted Date Diagnosed Date Resolved Date Closed nondisplaced fracture of proximal phalanx of lesser toe of right foot 09/04/2022 12/0 02/2023 Essential hypertension with goal blood pressure less than 130/80 03/18/2019 10/27/2019 Family history of ischemic heart disease 07/24/2015 03/18/2019 documented as of this encounter (statuses as of 02/19/2024) Immunizations Name Administration Dates Next Due COVID-19 mRNA, LNP-s, No Pre serve, 2-Dose Series ([employer]) 10/30/2020,10/09/2020 COVID-19, MRNA-LNP, 23-24, P F, 30 MCG/0.3 mL, 12 YRS AND ABOVE, IM (SchmoozerComirnat) 05/12/2023 Seasonal Influenza Virus Vac cine, Unspecified [...] this encounter Progress Notes * Mindi Gonzalez, DRIVER LICENSE AGENT - 02/17/2024 11:03 AM EDT Patient location: HOME. I was not in a hospital or clinic location. After connecting through [employer], patient was verified with two unique identifiers. Patient (or authorized legal admissions representative) was then informed that this was [...] that I have reviewed their record in [employer] and presented the opportunity for them to ask any questions regarding the visit today. The patient agreed to participate. Provider reviewed elements of Outpatient Services Description including limits of confidentiality, how to contact the department, risks and benefits of treatment and consent for treatment. Start Time: 1103AM Stop Time: 1158AM Total direct [id number] time: 55 Confirm patient's location (and address if different from the home address documented in [facility]) at the time of this appointment: home. ADULT THERAPY PROGRESS NOTE Psychology, [address] [phone] 02/17/2024 11:03 AM TYPE OF VISIT: Individual DIAGNOSIS: Adjustment Disorder REASON FOR FOLLOW-UP: Individual therapy Session #: 5 SESSION FOCUS: Progress SESSION SUMMARY/NOTES: During session, Rich discussed a "meltdown" she experienced that derived from anger and rage. Therapist and rich processed this in session and discussed how to engage in emotional regulation during times of distress. Rich and therapist discussed assigned homework that included a list of things she is proud of. Rich reported since she does no give herself enough credit, this exercise is helpful. Rich and therapist also discussed the progress she has made and the goalsshe still wishes to complete which are: working on her relationship and navigating her current separation with her , setting boundaries with family members whom she has difficulty communicating wi th at times, anxiety, depression, and people pleasing personality. Therapist informed Rich of provider transfer due to current therapist departure. rich is aware and in agreement to transfer. PROGRESS TOWARDS GOALS: Rich will work on healthy coping skills and setting healthy boundaries with family and partner as well as communication skills as needed. Objective Measures: Tony-7 Question 02/17/2024 10:51 AM EDT - Filed by Patient Over the last 2 weeks, how often have you been bothered by the following problems? Feeling nervous, anxious, or on edge Several days Not being able to stop or control worrying Nearly every day Worrying too much about different things Several days Trouble relaxing Several days Being so restless that is hard to sit still Not at all Becoming easily annoyed or irritable Several days Feeling afraid as if something awful might happen Not at all Total score of all questions (range: 0 - 21) 7 (Mild) Phq9-Depression Question 02/17/2024 10:54 AM EDT - Filed by Patient Over [...] Depression) Myc Visit Accident Related Question Question 02/17/2024 10:54 AM EDT - Filed by Patient Is this visit related to an accident? (i.e work, motor vehicle) No C-Ssrs Gjur-Ydqkid-Ygjko Last Contact Question 02/17/2024 10:54 AM EDT - Filed by Patient Have [...] STATUS AND BEHAVIORAL OBSERVATIONS: Appearance: within normal limits, age-appropriate, casually dressed, and well groomed Behavior: appropriate, cooperative, and pleasant Speech: normal pitch, normal rate, and normal volume Mood: "good" Affect: appropriate and mood-congruent Thought Process: within normal limits Thought Content: Delusions: No Hallucinations: No Obsessions: No Homicidal: No Suicidal: No Sensorium: alert and oriented to person, place, time and situation Cognition: grossly intact Insight: good Judgment: good Suicide/Homicidal Assessment Validated Screening and Assessment Measures cssrs Crisis Plan: see Crisis Plan in Treatment Plan FOLLOW-UP PLAN: Return: 2 weeks Action Plan: 1. Continue Individual Therapy Treatment plan reviewed with the patient. Patient voices understanding and concurs with plan. Mindi Gonzalez LPC Division of Psychiatry & Behavioral Medicine [facility] [phone] documented in this encounter Plan of Treatment Upcoming Encounters Date Type Department Care Team (Late st Contact Info) Description 02/23/2024 8:00 AM EDT Telemedicine [facility] 8 [facility] [phone] Mindi Gonzalez LPC [address] [place], [place] [address] [address] 03/16/2024 9:20 AM EDT Office Visit Family [place] [address] [place] [address] Jaylen Mcwilliams MD [address] [place] [address] 04/27/2024 3:00 PM EDT Office Visit [facility] Disorders [facility] [address] [place] [phone] Heather Knight DO [address] [place] [address] 05/25/2024 1:30 PM EST Office Visit Cardiology, [facility] [address] [facility] [place] [phone] Guerita Morris PA-C 132 [place] [address] 06/10/2024 9:20 AM EST Office Visit Dermatology [address] [phone] Mak Hazel PA-C [address] [place] [address] 06/22/2024 9:20 AM EST Office Visit [address] [address] Jaylen Mcwilliams MD [address] [place] [address] 11/30/2024 1:10 PM EDT Office Visit Optometry, [place] 16 [place] [address] Barrett Kulkarni Jr., OD 16 [place] [address] 02/08/2025 9:00 AM EDT Nurse Only Ancillary [address] [place] [phone] [place], Nurse Annual Wellness [place] [address] [place], [place] [address] [address] Health Maintenance Due Date Last Done Comments [...] 06/21, 06/04/2022, Additional history exists Depression Monitoring 02/16/2025 02/17/2024 , 02/05/2024, 01/20/2024, [...] Primary documented in this encounter Care Teams Weeder Relationship Specialty Start Date End Date Jaylen Mcwilliams MD [address] [place] [address] PCP - General Family Medicine 03/05/23 documented as of this encounter
--- OUTSIDE RECORDS SUMMARY | 2024-04-24 16:18 | External Medical Summary | Summary of Care ---
Author Name Unknown Organization [facility] Address [address] [place] [address] Phone [phone] Care Team Providers Care Coal Feeder Operator Name Role Phone Jaylen Mcwilliams MD Primary Care Provider [phone]- [phone] Reason for Visit * Reason Onset Date Comments Health Maintenance 01/12/2024 Encounter Details Date Type Department Care Team (Late st Contact Info) Description 01/12/2024 Telephone [facility] [address] [place], [place] [phone] Jaylen Mcwilliams MD [address] [place] [address] Health Maintenance Allergies No known active allergiesdocumented as of this encounter (statuses as of 01/14/2024) Medications Medication Sig Dispensed Refills Start Date [...] as of this encounter (statuses as of 01/14/2024) Active Problems Problem Noted Date Diagnosed Date [...] as of this encounter (statuses as of 01/14/2024) Resolved Problems Problem Noted Date Diagnosed Date Resolved Date Closed nondisplaced fracture of proximal phalanx of lesser toe of right foot 09/04/2022 12/0 02/2023 Essential hypertension with goal blood pressure less than 130/80 03/18/2019 10/27/2019 Family history of ischemic heart disease 07/24/2015 03/18/2019 documented as of this encounter (statuses as of 01/14/2024) Immunizations Name Administration Dates Next Due COVID-19 mRNA, LNP-s, No Pre serve, 2-Dose Series ([employer]) 10/30/2020,10/09/2020 COVID-19, MRNA-LNP, 23-24, P F, 30 MCG/0.3 mL, 12 YRS AND ABOVE, IM (NoFlo-Comirnat) 05/12/2023 Seasonal Influenza Virus Vac cine, Unspecified [...] Telephone Encounter - Huma Ge LPN - 01/14/2024 8:23 AM EDT AWV scheduled. * Telephone Encounter - Huma Ge LPN [...] - PCV) Never done COVID-19 Vaccine ( - season) 2023 Care Gap Outreach Action Taken: [employer] message sent AWV due. documented in this encounter Plan of Treatment Upcoming Encounters Date Type Department Care Team (Late st Contact Info) Description 01/20/2024 11:00 AM EDT Telemedicine Psychology, [facility] 8 [place] [phone] Mindi Gonzalez [facility] 8 [place] [address] 01/27/2024 11:00 AM EDT Office Visit Audiology, [place] [address] [place], [place] [phone] Norm Amin Au.D. [address] [place] [address] 02/03/2024 11:00 AM EDT Telemedicine Psychology, [facility] 8 [place] [address] Mindi Gonzalez, MANAGER OF QUALITY 8 [place] [address] 02/05/2024 9:00 AM EDT Nurse Only Ancillary [facility] 68 [place] [phone] [place], Nurse Annual Wellness [address] [address] 03/09/2024 2:00 PM EDT Office Visit Cardiology, [facility] 132 [place] [address] Romana Mcoky CRNP 132 [place] [address] 03/16/2024 9:20 AM EDT Office Visit [address] [address] Jaylen Mcwilliams MD [address] [place] [address] 06/10/2024 9:20 AM EST Office Visit Dermatology [facility] 68 [place] [phone] Mak Hazel PA-C [address] [place] [address] 06/22/2024 9:20 AM EST Office Visit [address] [address] Jaylen Mcwilliams MD [address] [place] [phone] 11/30/2024 1:10 PM EDT Office Visit Optometry, [place] 16 [place] [address] Shad Green, Barrett Blank, [place] 16 [place] [address] Health Maintenance Due Date Last Done Comments [...] filedocumented as of this encounter Care Teams Coal Feeder Operator Relationship Specialty Start Date End Date Jaylen Mcwilliams MD [address] [place] [address] PCP - General Family Medicine 03/05/23 documented as of this encounter
--- OUTSIDE RECORDS SUMMARY | 2024-04-24 16:18 | External Medical Summary | Summary of Care ---
Author Name Unknown Organization [facility] Address [address] [place] [facility] [place] [address] Phone [phone] Care Team Providers Care Sow Farm Barn Technician Name Role Phone Jaylen Mcwilliams MD Primary Care Provider +1- [phone] Reason for Visit * Reason Comments Follow Up Encounter Details Date Type Department Care Team (Late st Contact Info) Description 02/03/2024 11:00 AM EDT Telemedicine [facility], [facility] [address] [place] [address] Mindi Gonzalez [facility] [address] [place] [address] Adjustment disorder with mixed anxiety and depressed mood* Allergies No known active allergiesdocumented as of this encounter (statuses as of 02/04/2024) Medications Medication Sig Dispensed Refills Start Date [...] as of this encounter (statuses as of 02/04/2024) Active Problems Problem Noted Date Diagnosed Date [...] as of this encounter (statuses as of 02/04/2024) Resolved Problems Problem Noted Date Diagnosed Date Resolved Date Closed nondisplaced fracture of proximal phalanx of lesser toe of right foot 09/04/2022 12/0 02/2023 Essential hypertension with goal blood pressure less than 130/80 03/18/2019 10/27/2019 Family history of ischemic heart disease 07/24/2015 03/18/2019 documented as of this encounter (statuses as of 02/04/2024) Immunizations Name Administration Dates Next Due COVID-19 mRNA, LNP-s, No Pre serve, 2-Dose Series (OwnerIQ) 10/30/2020,10/09/2020 COVID-19, MRNA-LNP, 23-24, P F, 30 MCG/0.3 mL, 12 YRS AND ABOVE, IM (Help/SystemsComirnat) 05/12/2023 Seasonal Influenza Virus Vac cine, Unspecified [...] this encounter Progress Notes * Mindi Gonzalez, SEARCH STRATEGIST - 02/03/2024 11:05 AM EDT Patient location: HOME. I was not in a hospital or clinic location. After connecting through [employer], patient was verified with two unique identifiers. Patient (or authorized legal customer contact representative) was then informed that this [...] that I have reviewed their record in [employer] and presented the opportunity for them to ask any questions regarding the visit today. The patient agreed to participate. Provider reviewed elements of Outpatient Services Description including limits of confidentiality, how to contact the department, risks and benefits of treatment and consent for treatment. Start Time: 11:04AM Stop Time: 1157AM Total direct [id number] time: 53 Confirm patient's location (and address if different from the home address documented in [facility]) at the time of this appointment: home. ADULT THERAPY PROGRESS NOTE [facility], [address] [address] 02/03/2024 11:05 AM TYPE OF VISIT: Individual DIAGNOSIS: Adjustment Disorder REASON FOR FOLLOW-UP: Individual therapy Session #: 4 SESSION FOCUS: Anxiety and Communication Skills SESSION SUMMARY/NOTES: During session, Deb discussed feeling like she has "failed" as her mini goal to speak with family members; did not go as planned. Therapist and Deb discussed healthy ways to think about goals and expectations of the self. Deb and therapist discussed self-compassion and patience with the self. Deb reported she places a lot of "pressure" on herself. Therapist and Deb discussed positive coping skills and several ways to practice self- compassion. Therapist and Karenidentified her strengths that aid in progress. Throughout session, Therapist validated expression of emotions, utilized active listening, and empathy, as well as exploring necessary thoughts/feelings/ behaviors. PROGRESS TOWARDS GOALS: Deb will work on healthy coping skills and setting healthy boundaries with family and partner. Objective Measures: Myc Visit Accident Related Question Question 02/03/2024 10:39 AM EDT - Filed by Patient Is this visit related to an accident? (i.e work, motor vehicle) No INTERVENTION: Cognitive Behavioral Therapy (CBT) and Other: PATIENT EDUCATION: Verbal & written MENTAL STATUS AND BEHAVIORAL OBSERVATIONS: Appearance: within normal limits, age-appropriate, and casually dressed Behavior: appropriate, cooperative, and pleasant Speech: normal pitch, normal rate, and normal volume Mood: "ok" Affect: appropriate and mood-congruent Thought Process: within normal limits Thought Content: Delusions: No Hallucinations: No Obsessions: No Homicidal: No Suicidal: No Sensorium: alert and oriented to person, place, time and situation Cognition: grossly intact Insight: good Judgment: good Suicide/Homicidal Assessment Validated Screening and Assessment Measures Negative for SI and HI Crisis Plan: see Crisis Plan in Treatment Plan FOLLOW-UP PLAN: Return: 2 weeks Action Plan: 1. Continue Individual Therapy Treatment plan reviewed with the patient. Patient voices understanding and concurs with plan. Mindi Gonzalez LPC Division of Psychiatry & Behavioral Medicine [facility] [phone] documented in this encounter Plan of Treatment Upcoming Encounters Date Type Department Care Team (Late st Contact Info) Description 02/05/2024 9:00 AM EDT Nurse Only Ancillary [facility], [address] [address] Havecelina, Nurse Annual Wellness [address] [address] 02/17/2024 11:00 AM EDT Telemedicine Psychology, [address] [phone] Mindi Gonzalez LPC [address] [place] [address] 03/02/2024 11:00 AM EDT Telemedicine Psychology, [facility] 8 [place] [phone] Mindi Gonzalez, SEARCH STRATEGIST [address] [place] [address] 03/09/2024 2:00 PM EDT Office Visit Cardiology, [facility] [address] [place] [address] Romana Mckoy CRNP [address] [facility] [place] [address] 03/16/2024 9:20 AM EDT Office Visit Family [address] [address] Jaylen Mcwilliams MD [address] [place] [address] 06/10/2024 9:20 AM EST Office Visit Dermatology [facility] 68 [place] [phone] Mak Hazel PA-C [address] [place] [address] 06/22/2024 9:20 AM EST Office Visit [address] [address] Jaylen Mcwilliams MD [address] [place] [address] 11/30/2024 1:10 PM EDT Office Visit Optometry, [facility] [address] [place] [address] Barrett Kulkarni Jr., OD 16 [place] [address] Health Maintenance Due Date Last Done Comments DTaP,Tdap,and Td Vaccines (1 - Tdap) 1977 Cologuard 2003 Fecal Occult Blood Test 2003 Sigmoidoscopy 2003 Pneumococcal Vaccine: 65+ Years (1 of 1 - PCV) 2023 COVID-19 Vaccine (2022-24 season) 2023 05/12/2023, 11/05/2021, 05/15/2021, Additional history [...] with mixed anxiety and depressed mood- Primary Routine general medical examination at a health care facility- Primary Mixed hyperlipidemia Essential hypertension with goal blood pressure less than 140/90 Gastroesophageal reflux disease, unspecified whether esophagitis present Obesity, Class II, BMI 35-39.9, isolated (see actual BMI) Morbid obesity LALIT (generalized anxiety disorder) Generalized anxiety disorder Mild episode of recurrent major depressive disorder (HCC) documented in this encounter Care Teams Sow Farm Barn Technician Relationship Specialty Start Date End Date Jaylen Mcwilliams MD [address] [place] [address] PCP - General Family Medicine 03/05/23 documented as of this encounter
--- OUTSIDE RECORDS SUMMARY | 2024-04-24 16:18 | External Medical Summary | Summary of Care ---
Author Name Unknown Organization [facility] Address [address] [facility] [place] [address] Phone [phone] Care Team Providers Care Web Site Admin Name Role Phone Jaylen Mcwilliams MD Primary Care Provider +1- [phone] Reason for Visit * Reason Onset Date Comments Appointment 11/27/2023 Encounter Details Date Type Department Care Team (Late st Contact Info) Description 11/27/2023 Telephone [address]iology, [facility] [place] [address] Romana Mckoy CRNP 132 [facility] [place] [address] Appointment Allergies No known active allergiesdocumented as of this encounter (statuses as of 02/26/2024) Medications Medication Sig Dispensed Refills Start Date [...] 90 Tablet 2 10/27/2023 Active Rosuvastatin Calcium 10 MG Oral Tablet (Crestor) TAKE 1 TABLET BY MOUTH IN THE MORNING 90 Tablet 3 09/04/2023 4 Discontinued documented as of this encounter (statuses as of 02/26/2024) Active Problems Problem Noted Date Diagnosed Date [...] as of this encounter (statuses as of 02/26/2024) Resolved Problems Problem Noted Date Diagnosed Date Resolved Date Closed nondisplaced fracture of proximal phalanx of lesser toe of right foot 09/04/2022 12/0 02/2023 Essential hypertension with goal blood pressure less than 130/80 03/18/2019 10/27/2019 Family history of ischemic heart disease 07/24/2015 03/18/2019 documented as of this encounter (statuses as of 02/26/2024) Immunizations Name Administration Dates Next Due COVID-19 mRNA, LNP-s, No Pre serve, 2-Dose Series (CogMetal) 10/30/2020,10/09/2020 COVID-19, MRNA-LNP, 23-24, P F, 30 MCG/0.3 mL, 12 YRS AND ABOVE, IM (Tus reQRdosComirnat) 05/12/2023 Seasonal Influenza Virus Vac cine, Unspecified [...] encounter Miscellaneous Notes * Telephone Encounter - Star Ludwig OSA - 11/27/2023 2:49 PM EDT Patient is ordered two STAT Cardiac Cts, patients appt FU is in three months. Please assist patient to schedule, thank you. CT CARDIAC COMPLETE [CTHCTAWCA] (Order [id number]) CT FFR CORONARY ARTERIES [CTFFRCORON] (Order [id number]) documented in this encounter Plan of Treatment Upcoming Encounters Date Type Department Care Team (Late st Contact Info) Description 03/02/2024 8:40 AM EDT Office Visit Sleep Disorders Ctr [facility] [address] [place] [phone] Jeannine Pena DO [address] [place] [address] 03/16/2024 9:20 AM EDT Office Visit Family Practice, [address] [address] Jaylen Mcwilliams MD [address] [place] [address] 05/25/2024 1:30 PM EST Office Visit Cardiology, [facility] [address] [place] [address] Guerita Morris PA-C [address] [place] [address] 06/01/2024 11:00 AM EST Appointment Radiology, [address] [address] 06/10/2024 9:20 AM EST Office Visit Dermatology [facility] 68 [place] [phone] Mak Hazel PA-C 68 [place] [address] 06/22/2024 9:20 AM EST Office Visit Family [facility] [address] [place] [address] Jaylen Mcwilliams MD [address] [place] [address] 11/30/2024 1:10 PM EDT Office Visit Optometry, [address] [address] Barrett Kulkarni Jr., OD 16 [place], [place] [phone] 02/08/2025 9:00 AM EDT Nurse Only Ancillary [address] [phone] Havecelina, Nurse Annual Wellness [address] [address] Health Maintenance Due Date Last Done Comments [...] filedocumented as of this encounter Care Teams Web Site Admin Relationship Specialty Start Date End Date Jaylen Mcwilliams MD [address] [place] [address] PCP - General Family Medicine 03/05/23 documented as of this encounter
--- OUTSIDE RECORDS SUMMARY | 2024-04-24 16:19 | External Medical Summary | Summary of Care ---
Author Name Unknown Organization [facility] Address [address] [facility] [place] [address] Phone [phone] Care Team Providers Care Corporate Statistical Financial Analyst Name Role Phone Jaylen Mcwilliams MD Primary Care Provider +1- [phone] Reason for Visit * Reason Onset Date Comments Cardiology Study 12/25/[address] Encounter Details Date Type Department Care Team (Late st Contact Info) Description 12/25/2023 Telephone Cardiac Studies, [facility] 132 [facility] [place] [phone] Romana Mckoy CRNP 132 [facility] [place] [address] Cardiology Study (CARDIAC CT) Allergies No known active allergiesdocumented as of this encounter (statuses as of 01/02/2024) Medications Medication Sig Dispensed Refills Start Date End Date Status Aspirin 81 MG Oral Tablet Delayed Release Take 1 Tablet by mouth in the morning. 11/09/2013 Active Multiple Vitamin (MULTI VITAMIN DAILY) TABS Take by mouth. 11/09/2013 Active Rosuvastatin Calcium 10 MG Oral Tablet (Crestor) TAKE 1 TABLET BY MOUTH IN THE MORNING 90 Tablet 3 09/04/2023 Active Lisinopril 40 MG Oral Tablet TAKE [...] the evening 90 Tablet 2 10/27/2023 Active documented as of this encounter (statuses as of 01/02/2024) Active Problems Problem Noted Date Diagnosed Date [...] as of this encounter (statuses as of 01/02/2024) Resolved Problems Problem Noted Date Diagnosed Date Resolved Date Closed nondisplaced fracture of proximal phalanx of lesser toe of right foot 09/04/2022 12/0 02/2023 Essential hypertension with goal blood pressure less than 130/80 03/18/2019 10/27/2019 Family history of ischemic heart disease 07/24/2015 03/18/2019 documented as of this encounter (statuses as of 01/02/2024) Immunizations Name Administration Dates Next Due COVID-19 mRNA, LNP-s, No Pre serve, 2-Dose Series (Mobile Location, IP) 10/30/2020,10/09/2020 COVID-19, MRNA-LNP, 23-24, P F, 30 MCG/0.3 mL, 12 YRS AND ABOVE, IM (Rapt-Comirnat) 05/12/2023 Seasonal Influenza Virus Vac cine, Unspecified [...] Date Recorded PHQ Adult Total Score 7 09/22/2023 Hunger Vital Sign Answer Date Recorded Within the past 12 months, y ou worried that your food would run out before you got the money to buy more. Never true 09/23/19 24 Within the past 12 months, t he food you bought just didn't last and you didn't have money to get more. Never true 09/23/2023 Sex and Gender Information Value Date Recorded Sex Assigned at Female 05/20/2023 10:43 AM EDT Gender Identity Female 05/20/2023 10:43 AM EDT Sexual Orientation Lesbian 05/20/2023 10 :43 AM EDT Job Start Date Occupation Industry Not on file Not on file Not on file documented as of this encounter Miscellaneous Notes * Telephone Encounter - Bashir Sandhu RN - 12/26/2023 12:31 PM EDT Spoke with Dr Landeros. - On the morning and evening prior to the day of study, take usual 25 mg twice daily - On the morning of your Cardiac CT scan (1 hour prior to your study time) take 50 mg (2 tablets) . Called pt and left instructions on VM. Bashir Sandhu RN * Telephone Encounter - Bashir Sandhu RN - 12/25/2023 4:52 PM EDT Called pt and reviewed instructions. Pt takes maintenance dose of Metoprolol tartrate 25 mg BID. Last recorded HR was 59, BP 100/60. BMI31.25 Dr Landeros: Please provide guidance on any additional Metoprolol Tartrate premed needed: - On the morning prior to the day of study, take usual 25 mg - On the evening before the Cardiac CT scan study, take 25 mg (1 tablet) - On the morning of your Cardiac CT scan (1 hour prior to your study time) take 50 mg (2 tablets) Bashir Sandhu RN * Telephone Encounter - Bashir Sandhu RN - 12/25/2023 4:[address] instructions sent via Managed Objectshart. Bashir Sandhu RN documented in this encounter Plan of Treatment Upcoming Encounters Date Type Department Care Team (Late st Contact Info) Description 01/06/2024 11:00 AM EDT Telemedicine [address] [phone] Mindi Gonzalez, [address] [address] 01/20/2024 11:[address] [facility] 8 [place] [phone] Mindi Gonzalez, [address] [address] 01/27/2024 11:00 AM EDT Office Visit Audiology, [place] [address] [place] [address] Norm Amin Au.D. [address] [place], [place] [phone] 03/09/2024 2:00 PM EDT Office Visit Cardiology, [facility] [address] [place] [address] Romana Mckoy CRNP [address] [place] [address] 03/16/2024 9:20 AM EDT Office Visit Family [place] [phone] [place], [place] [phone] [place] [address] [place] [address] 06/10/2024 9:20 AM EST Office Visit Dermatology [facility] 68 [place] [phone] Mak Hazel PA-C 68 [place] [address] 06/22/2024 9:20 AM EST Office Visit Family Practice, [facility] [address] [place] [address] Jaylen Mcwilliams MD [address] [place] [address] 11/30/2024 1:10 PM EDT Office Visit Optometry, [place] 16 [place] [address] Barrett Kulkarni Jr., AROLDO 16 [place] [address] Health Maintenance Due Date Last Done Comments DTaP,Tdap,and Td Vaccines (1 - Tdap) 1977 Cologuard 2003 Fecal Occult Blood Test 2003 Sigmoidoscopy 2003 Pneumococcal Vaccine: 65+ Years (1 of 1 - PCV) 2023 COVID-19 Vaccine ( season) 2023 05/12/2023, 11/05/2021, 05/15/2021, Additional history exists Mammogram 05/29/2024 05/29/2023, 04/20, 04/23/2022, Additional history exists Colonoscopy 07/08/2024 07/08/2019, 10/14/2011 Colorectal Cancer Screening 07/08/2024 Depression Monitoring 09/21/2024 09/22/2023 GFR 12/25/2024 12/26/2023, 06/21, 06/04/2022, Additional history exists Albumin/Creatinine Ratio 06/04/2025 06/04/2022 [...] filedocumented as of this encounter Care Teams Corporate Statistical Financial Analyst Relationship Specialty Start Date End Date Jaylen Mcwilliams MD [address] [place] [address] PCP - General Family Medicine 03/05/23 documented as of this encounter
--- OUTSIDE RECORDS SUMMARY | 2024-04-24 16:19 | External Medical Summary | Summary of Care ---
Author Name Unknown Organization [facility] Address [address] [facility] [place] [address] Phone [phone] Care Team Providers Care Manager Instrumentation Name Role Phone Jaylen Mcwilliams MD Primary Care Provider +1- [phone] Reason for Visit * Reason Onset Date Comments Test Results 01/07/2024 Encounter Details Date Type Department Care Team (Late st Contact Info) Description 01/07/2024 Telephone Cardiology, [facility] [address] [place] [address] Romana Mckoy CRNP 132 [facility] [place] [address] Test Results Allergies No known active allergiesdocumented as of this encounter (statuses as of 01/09/2024) Medications Medication Sig Dispensed Refills Start Date [...] as of this encounter (statuses as of 01/09/2024) Active Problems Problem Noted Date Diagnosed Date [...] as of this encounter (statuses as of 01/09/2024) Resolved Problems Problem Noted Date Diagnosed Date Resolved Date Closed nondisplaced fracture of proximal phalanx of lesser toe of right foot 09/04/2022 12/0 02/2023 Essential hypertension with goal blood pressure less than 130/80 03/18/2019 10/27/2019 Family history of ischemic heart disease 07/24/2015 03/18/2019 documented as of this encounter (statuses as of 01/09/2024) Immunizations Name Administration Dates Next Due COVID-19 mRNA, LNP-s, No Pre serve, 2-Dose Series (Zapa) 10/30/2020,10/09/2020 COVID-19, MRNA-LNP, 23-24, P F, 30 MCG/0.3 mL, 12 YRS AND ABOVE, IM (Playmysong-Comirnat) 05/12/2023 Seasonal Influenza Virus Vac cine, Unspecified [...] as of this encounter Miscellaneous Notes * Addendum Note - Gabe Breaux RN - 01/09/2024 12:14 PM EDTAddended by: GABE BREAUX on: 01/09/2024 12:14 PM Modules accepted: Orders * Addendum Note - Gabe Breaux RN - 01/09/2024 12:12 PM EDTAddended by: GABE BREAUX on: 01/09/2024 12:12 PM Modules accepted: Orders * Telephone Encounter - Gabe Breaux RN - 01/09/2024 12:10 PM EDT Called and spoke to the patient and she has greed to increase the rosuvastatin to 20 mg daily. Lab work ordered future. * Telephone Encounter - Lianne Chahal OSA - 01/09/2024 9:34 AM EDT Person calling: Deb Relationship to patient: self Number to return call: [phone] Reason for call(brief): Medication Pharmacy: [facility] Provider Name:Judd Detailed message to office:Patient returning phone call from Chetan regarding medication Please callthe patient back. * Telephone Encounter - Chetan Ziegler LPN - 01/07/2024 1:11 PM EDT Sent patient a [employer] message to make aware. Awaiting reply to pend orders. * Telephone Encounter - Romana Mckoy CRNP - 01/07/2024 12:[address] Agatston calcium score of 99 and negative FFR consistent with mild nonobstructive coronary disease. Given her current symptoms and findings would recommend a more aggressive approach to prevent worsening coronary disease. In regards to her cholesterol her LDL goal is now below 70. Recommend increasing rosuvastatin to 20mg daily and repeat a fasting cholesterol panel and LFTs in 3- 4 months Continue aspirin 81 mg daily. documented in this encounter Plan of Treatment Upcoming Encounters Date Type Department Care Team (Late st Contact Info) Description 01/20/2024 11:00 AM EDT Telemedicine [address] [phone] Mindi Gonzalez [address] [address] 01/27/2024 11:00 AM EDT Office Visit Audiology, [place] [address] [place] [address] Norm Amin Au.D. [address] [place] [address] 02/03/2024 11:00 AM EDT Telemedicine [address] [phone] Mindi Gonzalez LPC [address] [place] [address] 03/09/2024 2:00 PM EDT Office Visit Cardiology, [facility] [address] Rom[facility]ck[facility] CRNP [facility] [place] [address] 03/16/2024 9:20 AM EDT Office Visit [address] [address] Jaylen Mcwilliams MD [address] [place] [address] 06/10/2024 9:20 AM EST Office Visit Dermatology [facility] 68 [place] [address] Mak Hazel PA-C [address] [place] [address] 06/22/2024 9:20 AM EST Office Visit [address] [address] Jaylen Mcwilliams MD [address] [place] [address] 11/30/2024 1:10 PM EDT Office Visit Optometry, [place] 16 [place] [address] Barrett Kulkarni Jr., 16 [place] [address] Health Maintenance Due Date Last Done Comments [...] as of this encounter Visit Diagnoses Diagnosis Dyslipidemia, goal LDL below 100- Primary Other and unspecified hyperlipidemia documented in this encounter Care Teams Manager Instrumentation Relationship Specialty Start Date End Date Jaylen Mcwilliams MD [address] [place] [address] PCP - General Family Medicine 03/05/23 documented as of this encounter
--- OUTSIDE RECORDS SUMMARY | 2024-04-24 16:19 | External Medical Summary | Summary of Care ---
Author Name Unknown Organization [facility] Address [address] [facility] [place] [address] Phone [phone] Care Team Providers Care Parking Inspector Name Role Phone Jaylen Mcwilliams MD Primary Care Provider +1- [phone] Reason for Visit * Reason Onset Date Comments Test Results 01/07/2024 Encounter Details Date Type Department Care Team (Late st Contact Info) Description 01/07/2024 Telephone Cardiology, [facility] [address] [place] [address] Nawaf Melo CRNP 132 [facility] [place] [address] Test Results Allergies No known active allergiesdocumented [...] the morning. 90 Tablet 3 01/09/2024 Active Rosuvastatin Calcium 10 MG Oral Tablet [...] mRNA, LNP-s, No Pre serve, 2-Dose Series (Seek [employer]ore) 10/30/2020,10/09/2020 COVID-19, MRNA-LNP, 23-24, P F, 30 MCG/0.3 mL, 12 YRS AND ABOVE, IM ([facility]) 05/12/2023 Seasonal Influenza Virus Vac cine, [...] encounter Miscellaneous Notes * Addendum Note - Nawaf Melo CRNP - 01/09/2024 12:36 PM EDTAddended by: NAWAF MELO on: 01/09/2024 12:36 PM Modules accepted: Orders * Addendum Note [...] to patient: self Number to return call: [phone] Reason for call(brief): Medication Pharmacy: [facility] Provider Name:Judd Detailed message to office:Patient returning phone call from Chetan regarding medication Please callthe patient back. * Telephone Encounter - Chetan Ziegler LPN - 01/07/2024 1:11 PM EDT Sent patient a Catapulterhart message to make aware. Awaiting reply to pend orders. * Telephone Encounter - Nawaf Melo CRNP - 01/07/2024 12:15 PM EDT Cardiac [...] Info) Description 01/20/2024 11:00 AM EDT Telemedicine [address] [phone] Mindi Gonzalez, [facility] 8 [place] [address] 01/27/2024 11:00 AM EDT Office Visit Audiology, [facility] [address] [place] [address] Norm Amin Au.D. [address] [place] [address] 02/03/2024 11:00 AM EDT Telemedicine [address] [phone] Mindi Gonzalez, [employer] 8 [place] [address] 03/09/2024 2:00 PM EDT Office Visit Cardiology, [facility] [address] [facility] [place] [address] Nawaf Melo CRNP [address] [facility] [place] [address] 03/16/2024 9:20 AM EDT Office Visit [address] [address] Jaylen Mcwilliams MD [address] [place] [address] 06/10/2024 9:20 AM EST Office Visit Dermatology [facility] 68 [place] [address] Mak Hazel PA-C [address] [place] [address] 06/22/2024 9:20 AM EST Office Visit [address] [address] Jaylen Mcwilliams MD [address] [place] [phone] 11/30/2024 1:10 PM EDT Office Visit Optometry, [facility] 16 [place] [address] Barrett Kulkarni Jr., OD 16 [place] [address] Scheduled Orders Name Type Priority Associated Diagnoses Orde r Schedule LIPID PANEL WITH DIRECT LDL IF TG IS HIGH Lab Routine Dyslipidemia, goal LDL below 100 Expected: 04/08/2024 (Approximate), Expires: 01/08/2025 HEPATIC FUNCTION PANEL Lab Routine Dyslipidemia, goal LDL below 100 Expected: 04/08/2024 (Approximate), Expires: 01/08/2025 Health Maintenance Due Date Last Done Comments DTaP,Tdap,and Td Vaccines (1 - Tdap) 1977 Cologuard 2003 Fecal Occult Blood Test 2003 Sigmoidoscopy 2003 Pneumococcal Vaccine: 65+ Years (1 of 1 - PCV) 2023 COVID-19 Vaccine (6 - 2022- season) 2023 05/12/2023, 11/05/2021, 05/15/2021, [...] hyperlipidemia documented in this encounter Care Teams Parking Inspector Relationship Specialty Start Date End Date Jaylen Mcwilliams MD [address] [place] [address] PCP - General Family Medicine 03/05/23 documented as of this encounter
--- OUTSIDE RECORDS SUMMARY | 2024-04-24 16:19 | External Medical Summary | Summary of Care ---
Author Name Unknown Organization [facility] Address [address] [facility] [place] [address] Phone [phone] Care Team Providers Care Hand Gluer And Slicer Name Role Phone Jaylen Mcwilliams MD Primary Care Provider +1- [phone] Reason for Visit * Reason Onset Date Comments Cardiology Study 12/25/[address] Encounter Details Date Type Department Care Team (Late st Contact Info) Description 12/25/2023 Telephone Cardiac Studies, [facility] 132 [facility] [place] [phone] Romana Mckoy CRNP 132 [facility] [place] [address] Cardiology Study (CARDIAC CT) Allergies No known active allergiesdocumented as of this encounter (statuses as of 12/26/2023) Medications Medication Sig Dispensed Refills Start Date [...] as of this encounter (statuses as of 12/26/2023) Active Problems Problem Noted Date Diagnosed Date [...] as of this encounter (statuses as of 12/26/2023) Resolved Problems Problem Noted Date Diagnosed Date Resolved Date Closed nondisplaced fracture of proximal phalanx of lesser toe of right foot 09/04/2022 12/0 02/2023 Essential hypertension with goal blood pressure less than 130/80 03/18/2019 10/27/2019 Family history of ischemic heart disease 07/24/2015 03/18/2019 documented as of this encounter (statuses as of 12/26/2023) Immunizations Name Administration Dates Next Due COVID-19 mRNA, LNP-s, No Pre serve, 2-Dose Series (My[employer]Screen) 10/30/2020,10/09/2020 COVID-19, MRNA-LNP, 23-24, P F, 30 MCG/0.3 mL, 12 YRS AND ABOVE, IM (CAXA-Comirnat) 05/12/2023 Seasonal Influenza Virus Vac cine, Unspecified [...] PM EDT Cardiac CT instructions sent via PGA TOUR Superstorehart. Bashir Sandhu RN documented in this encounter Plan of Treatment Upcoming Encounters Date Type Department Care Team (Late st Contact Info) Description 12/30/2023 8:15 AM EDT Imaging Radiology [address] 132 [facility] [place] [address] 01/06/2024 11:00 AM EDT Telemedicine [address] [phone] Mindi Gonzalez, [address] [address] 01/20/2024 11:00 AM EDT Telemedicine [facility], [address] [phone] Mindi Gonzalez, [address] [address] 01/27/2024 11:00 AM EDT Office Visit Audiology, [facility] [address] [place] [address] Norm Amin Au.D. [address] [place] [address] 03/09/2024 2:00 PM EDT Office Visit Cardiology, [facility] 132 [facility] [place] [address] Romana Mckoy CRNP 132 [facility] [place] [address] 03/16/2024 9:20 AM EDT Office Visit [address] [address] Jaylen Mcwilliams MD [address] [place] [address] 06/10/2024 9:20 AM EST Office Visit Dermatology [facility] 68 [place] [phone] Mak Hazel PA-C [address] [place] [address] 06/22/2024 9:20 AM EST Office Visit [address] [address] Jaylen Mcwilliams MD [address] [place] [address] 11/30/2024 1:10 PM EDT Office Visit Optometry, [place] 16 [place] [address] Barrett Kulkarni Jr., 16 [place] [address] Health Maintenance Due Date Last Done Comments DTaP,Tdap,and Td Vaccines (1 - Tdap) 1977 Cologuard 2003 Fecal Occult Blood Test 2003 Sigmoidoscopy 2003 Pneumococcal Vaccine: 65+ Years (1 of 1 - PCV) 2023 COVID-19 Vaccine ( season) 2023 05/12/2023, 11/05/2021, 05/15/2021, Additional history exists Mammogram 05/29/2024 05/29/2023, 04/20, 04/23/2022, Additional history exists Colonoscopy 07/08/2024 07/08/2019, 10/14/2011 Colorectal Cancer Screening 07/08/2024 GFR 07/18/2024 07/18/2023, 05/21, 04/18/2021, Additional history exists Albumin/Creatinine Ratio 06/04/2025 06/04/2022 Diabetes Screening 07/18/2026 07/18/2023, 1 08/04/2021, 04/18/2021, Additional history exists Lipid Panel 07/18/2028 07/18/2023, 05/21, 08/21/2021, Additional history exists DXA Scan 07/18/2033 07/18/2023 [...] filedocumented as of this encounter Care Teams Hand Gluer And Slicer Relationship Specialty Start Date End Date Jaylen Mcwilliams MD [address] [place] [address] PCP - General Family Medicine 03/05/23 documented as of this encounter
--- OUTSIDE RECORDS SUMMARY | 2024-04-24 16:19 | External Medical Summary | Summary of Care ---
Author Name Unknown Organization [facility] Address [address] [facility] [place] [address] Phone [phone] Care Team Providers Care Glove Examiner Name Role Phone Jaylen Mcwilliams MD Primary Care Provider +1- [phone] Reason for Visit * Reason Comments Follow Up Encounter Details Date Type Department Care Team (Late st Contact Info) Description 01/06/2024 11:00 AM EDT Telemedicine [facility], [facility] 8 [place] [address] Mindi Gonzalez [facility] 8 [place] [address] Adjustment disorder with mixed anxiety and depressed mood* Allergies No known active allergiesdocumented as of this encounter (statuses as of 01/06/2024) Medications Medication Sig Dispensed Refills Start Date [...] as of this encounter (statuses as of 01/06/2024) Active Problems Problem Noted Date Diagnosed Date [...] as of this encounter (statuses as of 01/06/2024) Resolved Problems Problem Noted Date Diagnosed Date Resolved Date Closed nondisplaced fracture of proximal phalanx of lesser toe of right foot 09/04/2022 12/0 02/2023 Essential hypertension with goal blood pressure less than 130/80 03/18/2019 10/27/2019 Family history of ischemic heart disease 07/24/2015 03/18/2019 documented as of this encounter (statuses as of 01/06/2024) Immunizations Name Administration Dates Next Due COVID-19 mRNA, LNP-s, No Pre serve, 2-Dose Series ([employer]) 10/30/2020,10/09/2020 COVID-19, MRNA-LNP, 23-24, P F, 30 MCG/0.3 mL, 12 YRS AND ABOVE, IM ([facility]Pub [facility]) 05/12/2023 Seasonal Influenza Virus Vac cine, [...] this encounter Progress Notes * Mindi Gonzalez, TRANSITIONS RN CARE COORDINATOR - 01/06/2024 11:02 AM EDT Patient location: HOME. I was not in a hospital or clinic location. After connecting through [employer], patient was verified with two unique identifiers. Patient (or authorized legal industrial relations representative) was then informed that this was [...] that I have reviewed their record in [employer] and presented the opportunity for them to ask any questions regarding the visit today. The patient agreed to participate. Provider reviewed elements of Outpatient Services Description including limits of confidentiality, how to contact the department, risks and benefits of treatment and consent for treatment. Start Time: 1101AM Stop Time: 1135AM Total direct [id number] time: 34 Confirm patient's location (and address if different from the home address documented in [facility]) at the time of this appointment: home. ADULT THERAPY PROGRESS NOTE Psychology, [address] [phone] 01/06/2024 11:02 AM TYPE OF VISIT: Individual DIAGNOSIS: Adjustment Disorder REASON FOR FOLLOW-UP: Individual therapy Session #: 2 SESSION FOCUS: Managing family dynamics SESSION SUMMARY/NOTES: During session, rich discussed communicating her feelings to family membersand setting boundaries with family. Rich reported she is experiencing some anxiety with communicating with her family. Rich and therapist processed these emotions in session. Rich and therapist also discussed healthy coping skills to utilize for managing anxiety. Rich reported she could only engage in a shorter session due to her schedule this day. Throughout session, Therapist validated expression of emotions, utilized active listening, and empathy, as well as exploring necessary thoughts/f eelings/behaviors. PROGRESS TOWARDS GOALS: Rich will continue to work on healthy coping skills and setting healthy boundaries with family. Objective Measures: Tony-7 Question 01/06/2024 9:41 AM EDT - Filed by Patient Over [...] afraid as if something awful might happen Several days Total score of all questions (range: 0 - 21) 7 (Mild) Phq9-Depression Question 01/06/2024 9:43 AM EDT - Filed by Patient Over [...] (range: 0 - 27) 5 (Mild Depression) Myc Visit Accident Related Question Question 01/06/2024 9:43 AM EDT - Filed by Patient Is this visit related to an accident? (i.e work, motor vehicle) No C-Ssrs Eohc-Cdzsvc-Puvwz Last Contact Question 01/06/2024 9:44 AM EDT - Filed by Patient Have you wished you were or wished you could go to sleep and not wake up? No Have you actually had any thoughts of killing yourself? No Have you done anything, started to do anything, or prepared to do anything to end your life? No INTERVENTION: Problem-solving and Supportive Therapy PATIENT EDUCATION: Verbal & written MENTAL STATUS AND BEHAVIORAL OBSERVATIONS: Appearance: within normal limits Behavior: appropriate, cooperative, and pleasant Speech: normal pitch, normal rate, and normal volume Mood: dysphoric Affect: appropriate and mood-congruent Thought Process: within normal limits Thought Content: Delusions: No Hallucinations: No Obsessions: No Homicidal: No Suicidal: No Sensorium: alert and oriented to person, place, time and situation Cognition: grossly intact Insight: good Judgment: good Suicide/Homicidal Assessment Validated Screening and Assessment Measures Cssrs above. Crisis Plan: see Crisis Plan in Treatment Plan FOLLOW-UP PLAN: Return: 2 weeks Action Plan: 1. Continue Individual Therapy Treatment plan reviewed with the patient. Patient voices understanding and concurs with plan. Mindi Gonzalez LPC Division of Psychiatry & Behavioral Medicine [facility] [phone] documented in this encounter Plan of Treatment Upcoming Encounters Date Type Department Care Team (Late st Contact Info) Description 01/20/2024 11:00 AM EDT Telemedicine [address] [phone] Mindi Gonzalez LPC [address] [place] [address] 01/27/2024 11:00 AM EDT Office Visit Audiology, [place] [address] [place] [address] Norm Amin Au.D. [address] [place] [address] 02/03/2024 11:00 AM EDT Telemedicine Psychology[address] [place] [phone] Mindi Gonzalez, TRANSITIONS RN CARE COORDINATOR 8 [place] [address] 03/09/2024 2:00 PM EDT Office Visit Cardiology, [facility] [address] [facility] [place] [address] Romana Mckoy CRNP [address] [place] [address] 03/16/2024 9:20 AM EDT Office Visit Family [address] [address] Jaylen Mcwilliams MD [address] [place] [address] 06/10/2024 9:20 AM EST Office Visit Dermatology [facility] 68 [place] [phone] Mak Hazel PA-C [address] [place] [address] 06/22/2024 9:20 AM EST Office Visit [address] [address] Jaylen Mcwilliams MD [address] [place] [phone] 11/30/2024 1:10 PM EDT Office Visit Optometry, [place] 16 [place] [address] Barrett Kulkarni Jr., OD 16 [place], [place] [phone] Health Maintenance Due Date Last Done Comments DTaP,Tdap,and Td Vaccines (1 - Tdap) 1977 Cologuard 2003 Fecal Occult Blood Test 2003 Sigmoidoscopy 2003 Pneumococcal Vaccine: 65+ Years (1 of 1 - PCV) 2023 COVID-19 Vaccine ( - 2022-24 season) 2023 05/12/2023, 11/05/2021, 05/15/2021, Additional history [...] Primary documented in this encounter Care Teams Glove Examiner Relationship Specialty Start Date End Date Jaylen Mcwilliams MD [address] [place] [address] PCP - General Family Medicine 03/05/23 documented as of this encounter
--- OUTSIDE RECORDS SUMMARY | 2024-04-24 16:19 | External Medical Summary | Summary of Care ---
Author Name Unknown Organization [facility] Address [address] [facility] [place] [address] Phone [phone] Care Team Providers Care Chute Builder Name Role Phone Jaylen Mcwilliams MD Primary Care Provider +1- [phone] Reason for Visit * Reason Onset Date Comments Test Results 01/07/2024 Encounter Details Date Type Department Care Team (Late st Contact Info) Description 01/07/2024 Telephone Cardiology, [facility] [address] [place] [address] Romana Mckoy CRNP 132 [facility] [place] [address] Test Results Allergies No known active allergiesdocumented as of this encounter (statuses as of 01/07/2024) Medications Medication Sig Dispensed Refills Start Date [...] as of this encounter (statuses as of 01/07/2024) Active Problems Problem Noted Date Diagnosed Date [...] as of this encounter (statuses as of 01/07/2024) Resolved Problems Problem Noted Date Diagnosed Date Resolved Date Closed nondisplaced fracture of proximal phalanx of lesser toe of right foot 09/04/2022 12/0 02/2023 Essential hypertension with goal blood pressure less than 130/80 03/18/2019 10/27/2019 Family history of ischemic heart disease 07/24/2015 03/18/2019 documented as of this encounter (statuses as of 01/07/2024) Immunizations Name Administration Dates Next Due COVID-19 mRNA, LNP-s, No Pre serve, 2-Dose Series (Vi[employer]ix) 10/30/2020,10/09/2020 COVID-19, MRNA-LNP, 23-24, P F, 30 MCG/0.3 mL, 12 YRS AND ABOVE, IM (Wikidot-Comirnat) 05/12/2023 Seasonal Influenza Virus Vac cine, Unspecified [...] encounter Miscellaneous Notes * Telephone Encounter - Chetan Ziegler LPN - 01/07/2024 1:11 PM EDT Sent patient a CatchFree message to make aware. Awaiting reply to [...] Info) Description 01/20/2024 11:00 AM EDT Telemedicine [facility] 8 [place] [phone] Mindi Gonzalez, [facility] 8 [place] [address] 01/27/2024 11:00 AM EDT Office Visit Audiology, [place] [address] [place] [address] Norm Amin Au.D. [address] [place] [address] 02/03/2024 11:00 AM EDT Telemedicine [facility] 8 [place] [phone] Mindi Gonzalez, LETTERSET PRESS SET UP OPERATOR 8 [facility] [address] 03/09/2024 2:00 PM EDT Office Visit Cardiology, [facility] [address] [place] [address] Romana Mckoy CRNP [address] [place] [address] 03/16/2024 9:20 AM EDT Office Visit [address] [address] Jaylen Mcwilliams MD [address] [place] [address] 06/10/2024 9:20 AM EST Office Visit Dermatology [facility] 68 [place] [phone] Mak Hazel PA-C [address] [place] [address] 06/22/2024 9:20 AM EST Office Visit [address] [address] Jaylen Mcwilliams MD [address] [place] [phone] 11/30/2024 1:10 PM EDT Office Visit Optometry, [place] 16 [place] [address] Barrett Kulkarni Jr., AROLDO 16 [place], [place] [phone] Health Maintenance Due Date Last Done Comments [...] filedocumented as of this encounter Care Teams Chute Builder Relationship Specialty Start Date End Date Jaylen Mcwilliams MD [facility] [place] [address] PCP - General Family Medicine 03/05/23 documented as of this encounter
--- OUTSIDE RECORDS SUMMARY | 2024-04-24 16:19 | External Medical Summary | Summary of Care ---
Author Name Unknown Organization [facility] Address [address] [facility] [place] [address] Phone [phone] Care Team Providers Care Adviser Sales Name Role Phone Jaylen Mcwilliams MD Primary Care Provider +1- [phone] Reason for Visit * Reason Onset Date Comments Cardiology Study 12/25/[address] Encounter Details Date Type Department Care Team (Late st Contact Info) Description 12/25/2023 Telephone Cardiac Studies, [facility] 132 [facility] [place] [phone] Romana Mckoy CRNP 132 [facility] [place] [address] Cardiology Study (CARDIAC CT) Allergies No known active allergiesdocumented as of this encounter (statuses as of 01/05/2024) Medications Medication Sig Dispensed Refills Start Date [...] as of this encounter (statuses as of 01/05/2024) Active Problems Problem Noted Date Diagnosed Date [...] as of this encounter (statuses as of 01/05/2024) Resolved Problems Problem Noted Date Diagnosed Date Resolved Date Closed nondisplaced fracture of proximal phalanx of lesser toe of right foot 09/04/2022 12/0 02/2023 Essential hypertension with goal blood pressure less than 130/80 03/18/2019 10/27/2019 Family history of ischemic heart disease 07/24/2015 03/18/2019 documented as of this encounter (statuses as of 01/05/2024) Immunizations Name Administration Dates Next Due COVID-19 mRNA, LNP-s, No Pre serve, 2-Dose Series ([employer]) 10/30/2020,10/09/2020 COVID-19, MRNA-LNP, 23-24, P F, 30 MCG/0.3 mL, 12 YRS AND ABOVE, IM (DesignGooroo-Comirnat) 05/12/2023 Seasonal Influenza Virus Vac cine, Unspecified [...] PM EDT Cardiac CT instructions sent via [employer]hart. Bashir Sandhu RN documented in this encounter Plan of Treatment Upcoming Encounters Date Type Department Care Team (Late st Contact Info) Description 01/06/2024 11:00 AM EDT Telemedicine [address] [phone] Mindi Gonzalez, [address] [address] 01/20/2024 11:00 AM EDT Telemedicine [facility] 8 [place] [phone] Mindi Gonzalez, [address] [address] 01/27/2024 11:00 AM EDT Office Visit Audiology, [place] [address] [place] [address] Norm Amin Au.D. [address] [place], [place] [phone] 03/09/2024 2:00 PM EDT Office Visit Cardiology, [facility] [address] [place] [address] Romana Mckoy CRNP [address] [place] [address] 03/16/2024 9:20 AM EDT Office Visit Family [place] [address] [place], [place] [phone] [place] [address] [place] [address] 06/10/2024 9:20 AM EST Office Visit Dermatology [facility] 68 [place] [phone] Mak Hazel PA-C 68 [place] [address] 06/22/2024 9:20 AM EST Office Visit Family Practice, [facility] [address] [place] [address] Jaylen Mcwilliams MD [address] [place] [address] 11/30/2024 1:10 PM EDT Office Visit Optometry, [place] 16 [place] [address] Barrett Kulkarni Jr., AROLDO 16 [place] [address] Health Maintenance Due Date Last Done Comments [...] filedocumented as of this encounter Care Teams Adviser Sales Relationship Specialty Start Date End Date Jaylen Mcwilliams MD [address] [place] [address] PCP - General Family Medicine 03/05/23 documented as of this encounter
--- OUTSIDE RECORDS SUMMARY | 2024-04-24 16:19 | External Medical Summary | Summary of Care ---
Author Name Unknown Organization [facility] Address [address] [facility] [place] [address] Phone [phone] Care Team Providers Care Haunted History Tour Guide Name Role Phone Jaylen Mcwilliams MD Primary Care Provider +1- [phone] Reason for Visit * Reason Onset Date Comments Test Results 01/07/2024 Encounter Details Date Type Department Care Team (Late st Contact Info) Description 01/07/2024 Telephone Cardiology, [facility] [address] [place] [address] Romana Mckoy CRNP 132 [facility] [place] [address] Test Results Allergies No known active allergiesdocumented [...] mRNA, LNP-s, No Pre serve, 2-Dose Series ([employer]) 10/30/2020,10/09/2020 COVID-19, MRNA-LNP, 23-24, P F, 30 MCG/0.3 mL, 12 YRS AND ABOVE, IM (Amootoon-Comirnat) 05/12/2023 Seasonal Influenza Virus Vac cine, Unspecified [...] to patient: self Number to return call: [phone] Reason for call(brief): Medication Pharmacy: [facility] Provider Name:Judd Detailed message to office:Patient returning phone call from Chetan regarding medication Please callthe patient back. * Telephone Encounter - Chetan Ziegler LPN - 01/07/2024 1:11 PM EDT Sent patient a Tansler message to make aware. Awaiting reply to [...] Info) Description 01/20/2024 11:00 AM EDT Telemedicine [address] [phone] Mindi Gonzalez, [address] [address] 01/27/2024 11:00 AM EDT Office Visit Audiology, [place] [address] [place] [address] Norm Amin Au.D. [address] [place] [address] 02/03/2024 11:00 AM EDT Telemedicine [address] [address] Mindi Gonzalez, [address] [address] 03/09/2024 2:00 PM EDT Office Visit Cardiology, [facility] 132 [facility] [place] [address] Romana Mckoy CRNP [address] [place] [address] 03/16/2024 9:20 AM EDT [facility] 1020 [place] [address] Jaylen Mcwilliams MD 1020 [place] [address] 06/10/2024 9:20 AM EST Office Visit Dermatology [facility] 68 [place] [phone] Mak Hazel PA-C 68 [place] [address] 06/22/2024 9:20 AM EST [facility] 1020 [place] [address] Jaylen Mcwilliams MD 10[address] [place] [address] 11/30/2024 1:10 PM EDT Office Visit Optometry, [address] [address] Barrett Kulkarni Jr., OD 16 [place] [address] Health Maintenance Due Date Last Done Comments [...] filedocumented as of this encounter Care Teams Haunted History Tour Guide Relationship Specialty Start Date End Date Jaylen Mcwilliams MD [address] [place] [address] PCP - General Family Medicine 03/05/23 documented as of this encounter
--- OUTSIDE RECORDS SUMMARY | 2024-04-24 16:19 | External Medical Summary | Summary of Care ---
Author Name Unknown Organization [facility] Address [address] [facility] [place] [address] Phone [phone] Care Team Providers Care Cable Repairer Name Role Phone Jaylen Mcwilliams MD Primary Care Provider +1- [phone] Reason for Visit * Reason Onset Date Comments Test Results 01/07/2024 Encounter Details Date Type Department Care Team (Late st Contact Info) Description 01/07/2024 Telephone Cardiology, [facility] [address] [place] [address] Romana Mckoy CRNP 132 [facility] [place] [address] Test Results Allergies No known active allergiesdocumented [...] mRNA, LNP-s, No Pre serve, 2-Dose Series ([email or web address][employer]) 10/30/2020,10/09/2020 COVID-19, MRNA-LNP, 23-24, P F, 30 MCG/0.3 mL, 12 YRS AND ABOVE, IM (Anxa-Comirnat) 05/12/2023 Seasonal Influenza Virus Vac cine, Unspecified [...] encounter Miscellaneous Notes * Telephone Encounter - Lianne Chahal OSA - 01/09/2024 9:34 AM EDT Person calling: Deb Relationship to patient: self Number to return call: [phone] Reason for call(brief): Medication Pharmacy: [facility] Provider Name:Judd Detailed message to office:Patient returning phone call from Chetan regarding medication Please callthe patient back. * Telephone Encounter - Chetan Ziegler LPN - 01/07/2024 1:11 PM EDT Sent patient a easy2comply ([employer]) message to make aware. Awaiting reply to [...] Info) Description 01/20/2024 11:00 AM EDT Telemedicine [facility] 8 [place] [address] Mindi Gonzalez [address] [address] 01/27/2024 11:00 AM EDT Office Visit Audiology, [place] [address] [place] [address] Norm Amin Au.D. [address] [place] [address] 02/03/2024 11:00 AM EDT Telemedicine Psychology, [facility] 8 [place] [phone] Mindi Gonzalez LPC 8 [place] [address] 03/09/2024 2:00 PM EDT Office Visit Cardiology, [facility] 132 [place] [address] Romana Mckoy CRNP 132 [place] [address] 03/16/2024 9:20 AM EDT Office Visit Family Practice[address] [address] Jaylen Mcwilliams MD [address] [place] [address] 06/10/2024 9:20 AM EST Office Visit Dermatology [facility] 68 [place] [address] Mak Hazel PA-C 68 [place] [address] 06/22/2024 9:20 AM EST Office Visit Family [address] [address] Jaylen Mcwilliams MD [address] [place] [phone] 11/30/2024 1:10 PM EDT Office Visit Optometry, [place] 16 [place] [address] Shad Green, Barrett Blank, [place] 16 [place] [address] Health Maintenance Due Date Last Done Comments [...] filedocumented as of this encounter Care Teams Cable Repairer Relationship Specialty Start Date End Date Jaylen Mcwilliams MD [address] [place] [address] PCP - General Family Medicine 03/05/23 documented as of this encounter
--- OUTSIDE RECORDS SUMMARY | 2024-04-24 16:20 | External Medical Summary | Summary of Care ---
Author Name Unknown Organization [facility] Address [address] [facility] [address] Phone [phone] Care Team Providers Care Public Interviewer Name Role Phone Jaylen Mcwilliams MD Primary Care Provider +1- [phone] Reason for Visit * Reason Comments Follow Up Encounter Details Date Type Department Care Team (Late st Contact Info) Description 12/23/2023 8:00 AM EDT Telemedicine [facility], [facility] 8 [place] [address] Mindi Gonzalez [facility] 8 [place] [address] Adjustment disorder with mixed anxiety and depressed mood* Allergies No known active allergiesdocumented as of this encounter (statuses as of 12/25/2023) Medications Medication Sig Dispensed Refills Start Date [...] as of this encounter (statuses as of 12/25/2023) Active Problems Problem Noted Date Diagnosed Date [...] as of this encounter (statuses as of 12/25/2023) Resolved Problems Problem Noted Date Diagnosed Date Resolved Date Closed nondisplaced fracture of proximal phalanx of lesser toe of right foot 09/04/2022 12/0 02/2023 Essential hypertension with goal blood pressure less than 130/80 03/18/2019 10/27/2019 Family history of ischemic heart disease 07/24/2015 03/18/2019 documented as of this encounter (statuses as of 12/25/2023) Immunizations Name Administration Dates Next Due COVID-19 mRNA, LNP-s, No Pre serve, 2-Dose Series ([employer]) 10/30/2020,10/09/2020 COVID-19, MRNA-LNP, 23-24, P F, 30 MCG/0.3 mL, 12 YRS AND ABOVE, IM ([facility]) 05/12/2023 Seasonal Influenza Virus Vac cine, Unspecified [...] this encounter Progress Notes * Mindi Gonzalez, SOD CUTTER - 12/23/2023 8:04 AM EDT Patient location: HOME. I was not in a hospital or clinic location. After connecting through televideo, patient was verified with two unique identifiers. Patient (or authorized legal public relations representative)was then informed that this was a Telemedicine visit and being conducted confidentially over securelines. Methods to assure confidentiality were taken. Patient acknowledged consent and understandingof privacy and security of the Telemedicine visit. The patient agreed to participate. My office door was closed. No one else was in the room with me. I informed the patient that I have reviewed their record in [facility] and presented the opportunity for them to ask any questions regarding the visit today. The patient agreed to participate. Provider reviewed elements of Outpatient Services Description including limits of confidentiality, how to contact the department, risks and benefits of treatment and consent for treatment. Start Time: 802AM Stop Time: 853AM Total direct [id number] time: 51 Confirm patient's location (and address if different from the home address documented in [facility]) at the time of this appointment: home. ADULT THERAPY PROGRESS NOTE Psychology, [address] [address] 12/23/2023 8:04 AM TYPE OF VISIT: Individual DIAGNOSIS: Adjustment Disorder REASON FOR FOLLOW-UP: Individual therapy Session #: 1 SESSION FOCUS: Managing symptoms and relationships SESSION SUMMARY/NOTES: During session, Deb discussed challenges communicating with partner and family members. Therapist and Deb processed feelings of sadness and addressed needs assessment. Therapist encouraged Deb to engage in CBT coping skills and positive communication skills. Deb also discussed difficulties she faces within her culture and upbringing. Deb and therapist processed feelings of inadequacy and disregard. Therapist encouraged Deb to engage in setting healthy boundaries and advocating for herself when necessary. Throughout session, Therapist validated expression of emotions, utilized active listening, and empathy, as well as exploring necessary thoughts/feelings/be haviors. PROGRESS TOWARDS GOALS: Deb will work on healthy coping skills and setting healthy boundaries with family and partner. Objective Measures: pt unable to complete questionnaires due to time constraint. Myc Visit Accident Related Question Question 12/23/2023 7:12 AM EDT - Filed by Patient Is this visit related to an accident? (i.e work, motor vehicle) No INTERVENTION: Cognitive Behavioral Therapy (CBT), Acceptance and Commitment Therapy (ACT), and Supportive Therapy PATIENT EDUCATION: Verbal & written MENTAL STATUS AND BEHAVIORAL OBSERVATIONS: Appearance: within normal limits Behavior: appropriate and cooperative Speech: normal pitch, normal rate, and normal volume Mood: euthymic Affect: appropriate Thought Process: within normal limits Thought Content: Delusions: No Hallucinations: No Obsessions: No Homicidal: No Suicidal: No Sensorium: alert and oriented to person, place, time and situation Cognition: grossly intact Insight: fair Judgment: fair Suicide/Homicidal Assessment Validated Screening and Assessment Measures Negative for SI, HI, AH, VH. Crisis Plan: see Crisis Plan in Treatment Plan FOLLOW-UP PLAN: Return: 2 weeks Action Plan: 1. Continue Individual Therapy Treatment plan reviewed with the patient. Patient voices understanding and concurs with plan. Mindi Gonzalez LPC Division of Psychiatry & Behavioral Medicine [facility] [phone] documented in this encounter Plan of Treatment Upcoming Encounters Date Type Department Care Team (Late st Contact Info) Description 12/30/2023 8:15 AM EDT Imaging Radiology [address] 132 [facility] [place] [address] 01/06/2024 11:00 AM EDT Telemedicine [facility], [facility] 8 [place] [phone] Mindi Gonzalez, SOD CUTTER 8 [place] [address] 01/20/2024 11:00 AM EDT Telemedicine Psychology, [facility] 8 [place] [phone] Mindi Gonzalez, [facility] 8 [place] [address] 01/27/2024 11:00 AM EDT Office Visit Audiology, [place] [address] [place] [address] Norm Amin Au.D. [address] [place] [address] 03/09/2024 2:00 PM EDT Office Visit Cardiology, [facility] 132 [facility] [place] [address] Romana Mckoy CRNP 132 [facility] [place] [address] 03/16/2024 9:20 AM EDT Office Visit Family Practice, [facility] 1020 [place] [address] Jaylen Mcwilliams MD [facility]0 [place] [address] 06/10/2024 9:20 AM EST Office Visit Dermatology [facility] 68 [place] [phone] Mak Hazel PA-C 68 [place], [place] [phone] 06/22/2024 9:20 AM EST Office Visit [facility], [facility] 10[address] [place] [address] Jaylen Mcwilliams MD 1020 [place] [address] 11/30/2024 1:10 PM EDT Office Visit Optometry, [place] 16 [place] [address] Barrett Kulkarni Jr., AROLDO 16 [place] [address] Health Maintenance Due Date Last Done Comments [...] Primary documented in this encounter Care Teams Public Interviewer Relationship Specialty Start Date End Date Jaylen Mcwilliams MD [address] [place] [address] PCP - General Family Medicine 03/05/23 documented as of this encounter
--- OUTSIDE RECORDS SUMMARY | 2024-04-24 16:20 | External Medical Summary | Summary of Care ---
Author Name Unknown Organization [facility] Address [address] [facility] [place] [address] Phone [phone] Care Team Providers Care Vice President Financial Name Role Phone Jaylen Mcwilliams MD Primary Care Provider +1- [phone] Reason for Visit * Reason Onset Date Comments Cardiology Study 12/25/[address] Encounter Details Date Type Department Care Team (Late st Contact Info) Description 12/25/2023 Telephone Cardiac Studies, [facility] 132 [facility] [place] [id number] Romana Mckoy CRNP 132 [facility] [place] [address] Cardiology Study (CARDIAC CT) Allergies No known [...] mRNA, LNP-s, No Pre serve, 2-Dose Series ([employer]) 10/30/2020,10/09/2020 COVID-19, MRNA-LNP, 23-24, P F, 30 MCG/0.3 mL, 12 YRS AND ABOVE, IM ([employer]-Comirnat) 05/12/2023 Seasonal Influenza Virus Vac cine, Unspecified [...] PM EDT Cardiac CT instructions sent via Yammert. Bashir Sandhu RN documented in this encounter Plan of Treatment Upcoming Encounters Date Type Department Care Team (Late st Contact Info) Description 12/30/2023 8:15 AM EDT Imaging Radiology [facility] 1st [facility] 132 [facility] [place] [address] 01/06/2024 11:00 AM EDT Telemedicine Psychology, [facility] 8 [place] [phone] Mindi Gonzalez, [facility] 8 [place] [address] 01/20/2024 11:00 AM EDT Telemedicine Psychology, [facility] 8 [place] [address] Mindi Gonzalez, [facility] 8 [place] [address] 01/27/2024 11:00 AM EDT Office Visit Audiology, [place] [address] [place] [address] Norm Amin Au.D. [address] [place] [address] 03/09/2024 2:00 PM EDT Office Visit Cardiology, [facility] 132 [facility] [place] [address] Romana Mckoy CRNP 132 [facility] [place] [address] 03/16/2024 9:20 AM EDT Office Visit Family Practice, [facility] 10[address] [place] [address] Jaylen Mcwilliams MD 10[address] [place] [address] 06/10/2024 9:20 AM EST Office Visit Dermatology [facility] 68 [place] [phone] Mak Hazel PA-C [address] [place] [address] 06/22/2024 9:20 AM EST Office Visit [facility] 10[address] [place] [address] Jaylen Mcwilliams MD [address] [place] [address] 11/30/2024 1:10 PM EDT Office Visit Optometry, [place] 16 [place] [address] Shad Green, Barrett Blank, AR[place] 16 [place] [address] Health Maintenance Due Date Last Done Comments [...] filedocumented as of this encounter Care Teams Vice President Financial Relationship Specialty Start Date End Date Jaylen Mcwilliams MD [address] [place] [address] PCP - General Family Medicine 03/05/23 documented as of this encounter
--- OUTSIDE RECORDS SUMMARY | 2024-04-24 16:20 | External Medical Summary | Summary of Care ---
Author Name Unknown Organization [facility] Address [address] [place] [address] Phone [phone] Care Team Providers Care Customer Experience Intern Name Role Phone Jaylen Mcwilliams MD Primary Care Provider +1- [phone] Encounter Details Date Type Department Care Team (Late st Contact Info) Description 11/04/2023 2:00 PM EDT Office Visit Audiology, [place] [address] [place], [place] [phone] Norm Amin Au.D. [address] [place] [address] Hearing aid consultation* Allergies No known active allergiesdocumented as of this encounter (statuses as of 11/04/2023) Medications Medication Sig Dispensed Refills Start Date End Date Status Aspirin 81 MG Oral Tablet Delayed Release Take 1 Tablet by mouth in the morning. 0 11/09/2013 Active Multiple Vitamin (MULTI VITAMIN DAILY) TABS Take by mouth. 0 11/09/2013 Active pantoprazole (PROTONIX) 40 MG TBEC Take 1 Tab by mouth daily. 30 minutes before the first meal of the day. Do not crush, split or chew the tablet 90 Tab 3 03/28/2020 Active Additional Information Patient not taking.Reported on 09/09/2023 Triamcinolone Acetonide 0.1 % External Cream (Aristocort) Apply to the legs and chest twice daily for 1-2 weeks as needed 80 g 1 06/10/2023 Active Additional Information Patient not taking.Reported on 09/09/2023 Rosuvastatin Calcium 10 MG Oral Tablet (Crestor) [...] as of this encounter (statuses as of 11/04/2023) Active Problems Problem Noted Date Diagnosed Date [...] as of this encounter (statuses as of 11/04/2023) Resolved Problems Problem Noted Date Diagnosed Date Resolved Date Closed nondisplaced fracture of proximal phalanx of lesser toe of right foot 09/04/2022 12/0 02/2023 Essential hypertension with goal blood pressure less than 130/80 03/18/2019 10/27/2019 Family history of ischemic heart disease 07/24/2015 03/18/2019 documented as of this encounter (statuses as of 11/04/2023) Immunizations Name Administration Dates Next Due COVID-19 mRNA, LNP-s, No Pre serve, 2-Dose Series ([employer]) 10/30/2020,10/09/2020 COVID-19, MRNA-LNP, 23-24, P F, 30 MCG/0.3 mL, 12 YRS AND ABOVE, IM ([facility]) 05/12/2023 Seasonal Influenza Virus Vac cine, [...] Progress Notes * Norm Amin Au.D. - 11/04/2023 4:35 PM EDT Deb Bansal was seen to order her hearing aids. She was previously seen by Nicole Salgado to discuss hearing aids and was told she would order a set of the Oticon Real 1. We are going to get them in [facility]. When the arrive she will be called to schedule an appointment, she indicated that Tuesdays are the best days for her. Norm Salgado documented in this encounter Plan of Treatment Upcoming Encounters Date Type Department Care Team (Late st Contact Info) Description 12/05/2023 10:00 AM EDT Telemedicine Psychology, [facility] 8 [place] [phone] Mindi Gonzalez LPC 8 [place] [address] 12/08/2023 9:00 AM EDT Office Visit Cardiology, [facility] [address] [place] [address] Romana Mckoy CRNP [address] [place] [address] 12/10/2023 8:00 AM EDT Office Visit Family [address] [address] Jaylen Mcwilliams MD [address] [place] [address] 03/16/2024 9:20 AM EDT Office Visit [address] [address] Jaylen Mcwilliams MD [address] [place] [address] 06/10/2024 9:20 AM EST Office Visit Dermatology [address] [phone] Mak Hazel PA-C [address] [place] [address] 11/30/2024 1:10 PM EDT Office Visit Optometry, [place] 16 [place], [place] [phone] Barrett Kulkarni Jr., OD 16 [place] [address] Health Maintenance Due Date Last Done Comments DTaP,Tdap,and Td Vaccines (1 - Tdap) 1977 Pneumococcal Vaccine: 65+ Years (1 of 1 - PCV) 2023 Mammogram 05/29/2024 05/29/2023, 04/20, 04/23/2022, Additional history exists COLONOSCOPY-EVERY 5 YRS AGES 18-100 07/08/2024 07/08/2019, 10/14/2011 GFR 07/18/2024 07/18/2023, 05/21, 04/18/2021, Additional history exists Albumin/Creatinine Ratio 06/04/2025 06/04/2022 Diabetes Screening 07/18/2026 07/18/2023, 1 08/04/2021, 04/18/2021, Additional history exists Lipid Panel 07/18/2028 07/18/2023, 05/21, 08/21/2021, Additional history exists DXA Scan 07/18/2033 07/18/2023 Zoster Vaccines Completed 01/01/2021, 05/02/2020 COVID-19 Vaccine Completed 05/12/2023, , 05/15/2021, Additional history exists Influenza Vaccine (FLU shot) Completed , 05/02/2020, 05/02/2020 GARDASIL-HPV IMMUNIZATION SERIES Aged Out [...] this encounter Visit Diagnoses Diagnosis Hearing aid consultation- Primary documented in this encounter Care Teams Customer Experience Intern Relationship Specialty Start Date End Date Jaylen Mcwilliams MD [address] [place] [address] PCP - General Family Medicine 03/05/23 documented as of this encounter
--- OUTSIDE RECORDS SUMMARY | 2024-04-24 16:20 | External Medical Summary | Summary of Care ---
Author Name Unknown Organization [facility] Address [address] [facility] [place] [address] Phone [phone] Care Team Providers Care Postulant Name Role Phone Jaylen Mcwilliams MD Primary Care Provider +1- [phone] Reason for Visit * Reason Onset Date Comments Cardiology Study 12/25/[address] Encounter Details Date Type Department Care Team (Late st Contact Info) Description 12/25/2023 Telephone Cardiac Studies, [facility] 132 [facility] [place] [phone] Romana Mckoy CRNP [address] [facility] [place] [address] Cardiology Study (CARDIAC CT) Allergies No known [...] mRNA, LNP-s, No Pre serve, 2-Dose Series (Dunwell[employer]) 10/30/2020,10/09/2020 COVID-19, MRNA-LNP, 23-24, P F, 30 MCG/0.3 mL, 12 YRS AND ABOVE, IM ([employer]Sionics-Comirnat) 05/12/2023 Seasonal Influenza Virus Vac cine, Unspecified [...] PM EDT Cardiac CT instructions sent via [employer]cule[employer]. Bashir Sandhu RN documented in this encounter Plan of Treatment Upcoming Encounters Date Type Department Care Team (Late st Contact Info) Description 12/30/2023 8:15 AM EDT Imaging Radiology [facility] 1st [facility] 132 [facility] [place] [address] 01/06/2024 11:00 AM EDT Telemedicine Psychology, [facility] 8 [place] [phone] Mindi Gonzalez, [facility] 8 [place] [address] 01/20/2024 11:00 AM EDT Telemedicine Psychology, [facility] 8 [place] [address] Mindi Gonzalez, [facility] 8 [place] [address] 01/27/2024 11:00 AM EDT Office Visit Audiology, [place] [address] [place] [address] Norm Amin Au.D. [address] [place] [address] 03/09/2024 2:00 PM EDT Office Visit Cardiology, [facility] 132 [facility] [place] [address] Romana Mckoy CRNP 132 [facility] [place] [address] 03/16/2024 9:20 AM EDT Office Visit Family Practice, [facility] [address] [place] [address] Jaylen Mcwilliams MD [address] [place] [address] 06/10/2024 9:20 AM EST Office Visit Dermatology [facility] 68 [place] [phone] Mak Hazel PA-C [address] [place] [address] 06/22/2024 9:20 AM EST Office Visit [facility] [address] [place] [address] Jaylen Mcwilliams MD [address] [place] [address] 11/30/2024 1:10 PM EDT Office Visit Optometry, [place] 16 [place] [address] Shad Green, Barrett Blank, AROLDO 16 [place] [address] Health Maintenance Due Date Last Done Comments [...] filedocumented as of this encounter Care Teams Postulant Relationship Specialty Start Date End Date Jaylen Mcwilliams MD [address] [place] [address] PCP - General Family Medicine 03/05/23 documented as of this encounter
--- OUTSIDE RECORDS SUMMARY | 2024-04-24 16:20 | External Medical Summary | Summary of Care ---
Author Name Unknown Organization [facility] Address [address] [facility] [place] [address] Phone [phone] Care Team Providers Care Final Cleaner Name Role Phone Jaylen Mcwilliams MD Primary Care Provider [phone]- [phone] Encounter Details Date Type Department Care Team (Late st Contact Info) Description 11/29/2023 Orders Only PATIENT PORTAL DO NOT DELETE THIS DEPT USED BY [place] VILLASENOR [id number] Allergies No known active allergiesdocumented as of this encounter (statuses as of 11/29/2023) Medications Medication Sig Dispensed Refills Start Date End Date Status Aspirin 81 MG Oral Tablet Delayed Release Take 1 Tablet by mouth in the morning. 0 11/09/2013 Active Multiple Vitamin (MULTI VITAMIN DAILY) TABS Take by mouth. 0 11/09/2013 Active Rosuvastatin Calcium 10 MG Oral [...] as of this encounter (statuses as of 11/29/2023) Active Problems Problem Noted Date Diagnosed Date [...] as of this encounter (statuses as of 11/29/2023) Resolved Problems Problem Noted Date Diagnosed Date Resolved Date Closed nondisplaced fracture of proximal phalanx of lesser toe of right foot 09/04/2022 12/0 02/2023 Essential hypertension with goal blood pressure less than 130/80 03/18/2019 10/27/2019 Family history of ischemic heart disease 07/24/2015 03/18/2019 documented as of this encounter (statuses as of 11/29/2023) Immunizations Name Administration Dates Next Due COVID-19 mRNA, LNP-s, No Pre serve, 2-Dose Series ([employer]) 10/30/2020,10/09/2020 COVID-19, MRNA-LNP, 23-24, P F, 30 MCG/0.3 mL, 12 YRS AND ABOVE, IM ([employer]) 05/12/2023 Seasonal Influenza Virus Vac cine, Unspecified [...] Info) Description 12/05/2023 10:00 AM EDT Telemedicine [facility], [facility] 8 [place] [address] [facility] 8 [place] [address] 12/10/2023 8:00 AM EDT Office Visit [facility] [address] [place] [address] Jaylen Mcwilliams MD [address] [place] [address] 12/23/2023 11:00 AM EDT Office Visit Audiology, [place] [address] [place] [address] Norm Amin Au.D. [address] [place] [address] 12/30/2023 8:15 AM EDT Imaging Radiology [facility] [place] [facility] [address]st [address] [address] 03/09/2024 2:00 PM EDT Office Visit Cardiology, [address] [place] [address] Romana Mckoy CRNP [address] [facility] [address] 03/16/2024 9:20 AM EDT Office Visit Family Practice, [facility] [address] [place] [address] Jaylen Mcwilliams MD [address] [place] [address] 06/10/2024 9:20 AM EST Office Visit Dermatology [facility] [address] [place] [phone] Mak Hazel PA-C [address] [place] [address] 11/30/2024 1:10 PM EDT Office Visit Optometry, [place] 16 [place] [address] Barrett Kulkarni Jr., AROLDO [address] [place] [address] Health Maintenance Due Date Last Done Comments [...] history exists Influenza Vaccine (FLU shot) Completed 06/10/2023, 05/02/2020, [...] filedocumented as of this encounter Care Teams Final Cleaner Relationship Specialty Start Date End Date Jaylen Mcwilliams MD [address] [place] [address] PCP - General Family Medicine 03/05/23 documented as of this encounter
--- OUTSIDE RECORDS SUMMARY | 2024-04-24 16:20 | External Medical Summary | Summary of Care ---
Author Name Unknown Organization [facility] Address [address] [facility] [place] [address] Phone [phone] Care Team Providers Care Gaming Investigator Name Role Phone Jaylen Mcwilliams MD Primary Care Provider +1- [phone] Reason for Visit * Reason Comments NEW PATIENT Encounter Details Date Type Department Care Team (Late st Contact Info) Description 12/05/2023 10:00 AM EDT Telemedicine [facility], [facility] 8 [place] [address] Mindi Gonzalez [facility] 8 [place] [address] Adjustment disorder with mixed anxiety and depressed mood* Allergies No known active allergiesdocumented as of this encounter (statuses as of 12/05/2023) Medications Medication Sig Dispensed Refills Start Date [...] as of this encounter (statuses as of 12/05/2023) Active Problems Problem Noted Date Diagnosed Date [...] as of this encounter (statuses as of 12/05/2023) Resolved Problems Problem Noted Date Diagnosed Date Resolved Date Closed nondisplaced fracture of proximal phalanx of lesser toe of right foot 09/04/2022 12/0 02/2023 Essential hypertension with goal blood pressure less than 130/80 03/18/2019 10/27/2019 Family history of ischemic heart disease 07/24/2015 03/18/2019 documented as of this encounter (statuses as of 12/05/2023) Immunizations Name Administration Dates Next Due COVID-19 mRNA, LNP-s, No Pre serve, 2-Dose Series ([facility]) 10/30/2020,10/09/2020 COVID-19, MRNA-LNP, 23-24, P F, 30 MCG/0.3 mL, 12 YRS AND ABOVE, IM ([employer] [facility]) 05/12/2023 Seasonal Influenza Virus Vac cine, [...] this encounter Progress Notes * Mindi Gonzalez, WELFARE ADMINISTRATOR - 12/05/2023 10:07 AM EDT Patient location: HOME. I was not in a hospital or clinic location. After connecting through televideo, patient was verified with two unique identifiers. Patient (or authorized legal site safety representative) was then informed that this was [...] that I have reviewed their record in [employer] and presented the opportunity for them to ask any questions regarding the visit today. The patient agreed to participate. Provider reviewed elements of Outpatient Services Description including limits of confidentiality, how to contact the department, risks and benefits of treatment and consent for treatment. [facility] is committed to coordinated care through an integrated delivery system and shared medicalrecord. Since our patients are seen both in primary care and behavioral health (as well as other specialties), each provider has immediate access to information to enable collaboration across the continuum. Start Time: 1001AM Stop Time: 1058AM Total direct [id number] time: 57 Confirm patient's location (and address if different from the home address documented in [facility]) at the time of this appointment: home. OUTPATIENT BEHAVIORAL HEALTH EVALUATION [address] [address] 12/05/2023 2:03 PM Referring Provider: Jaylen Mcwilliams MD Length of visit: 57 minutes. Diagnosis: Adjustment disorder with mixed anxiety and depressed mood. Psych Diagnostic Evaluation: CPT: 01805 REASON FOR REFERRAL Deb Bansal is 63 year old. Referred by Self for Anxiety and Depression BRIEF SUMMARY OF ASSESSMENT CASE DISPOSITION/RECOMMENDATIONS Deb Bansal would benefit from individual outpatient therapy for the primary presenting concern(s)of Adjustment disorder with mixed anxiety and depressed mood. . Treatment recommendations and associated risks/benefits and alternative treatments as well as forgoing treatment were discussed. See BH Therapy Treatment Plan in "Plans" section. Recommend referral for None Deb Bansal agreed to plan and was scheduled/referred accordingly: yes PRESENTING PROBLEM Deb is experiencing difficulties managing signs and symptoms related to SYMPTOMS Mood: dysphoric Reina/Hypomania: No Interest: no change Energy: no change Appetite: no change from normal Concentration: difficulty with focus and attention Psychomotor changes: within normal limits Anxiety: Anxious cognitions, and Avoidance behaviors. Neurological Problems/Hx of head injury: unable to assess. Trauma Hx: witnessed trauma during childhood. Delusions: No Hallucinations: No SYMPTOM MEASURES questionnaires failed to load upon assessment. Myc Visit Accident Related Question Question 12/05/2023 9:29 AM EDT - Filed by Patient Is this visit related to an accident? (i.e work, motor vehicle) No MENTAL HEALTH HISTORY Past treatment: None Current treatment: None reported. Family history: Unable to formally assess. CURRENT MEDICATIONS: Current Outpatient Medications Medication Sig Dispense Refill Aspirin 81 MG Oral Tablet Delayed Release Take 1 Tablet by mouth in the morning. Multiple Vitamin (MULTI VITAMIN DAILY) TABS Take by mouth. Rosuvastatin Calcium 10 MG Oral Tablet (Crestor) TAKE 1 TABLET BY MOUTH IN THE MORNING 90 Tablet 3 Lisinopril 40 MG Oral Tablet TAKE 1 [...] mouth in the evening 90 Tablet 2 No current facility-administered medications for this visit. HEALTH BEHAVIORS ETOH: None. Illicit Drugs: denied. Evidence of risky use: No Impaired Control: No DUI/Legal: No Tolerance/Withdrawal: No Medical Cannabis: unable to formally assess. Nicotine: unable to formally assess. Caffeine: 1 cups/day Exercise: "sometimes" Weight: no change. Sleep: no change. Pain level 0-10: Current: unable to formally assess. Medication/Treatment Adherence: Compliant with all prescribed medicines SOCIAL HISTORY: Relationship status: . Quality of Relationship: ups and downs Progeny: Children: Quality of relationship with children: N/A. 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 Education Level: some college Legal Problems: never Service: No Yazidism orientation: none. Born: [place] Family of origin composition: mother Family of origin relationships: average Leisure pursuits: reading, MEDICAL PROBLEMS Past Medical History: Diagnosis Date Arthralgia Dysphagia, unspecified Gastric ulcer 08/15/2014 BY EGD Gastritis, acute 12/19/201401/02 VIA EGD & 08/04 VIA EGD Hernia, hiatal 08/15/2014 EGD HTN (hypertension) Migraines MENTAL STATUS AND BEHAVIORAL OBSERVATIONS Appearance: within normal limits Behavior: appropriate, cooperative, and pleasant Speech: normal pitch, normal rate, and normal volume Mood: dysphoric Affect: appropriate Thought Process: within normal limits Thought Content: Delusions: No Hallucinations: No Obsessions: No Homicidal: No Suicidal: No Sensorium: alert and oriented to person, place, time and situation Cognition: grossly intact Insight: fair Judgment: fair Suicide/Homicidal Assessment Validated Screening and Assessment Measures See above regarding questionnaires. Crisis Plan: see Crisis Plan in Treatment Plan TREATMENT PLAN [place] plan in plan section. The assessment and plan was based on the information obtained during the appointment. Mindi Gonzalez LPC Division of Psychiatry & Behavioral Medicine [facility] [phone] documented in this encounter Plan of Treatment Upcoming Encounters Date Type Department Care Team (Late st Contact Info) Description 12/10/2023 8:00 AM EDT Office Visit [facility] [address] [place] [address] Jaylne Mcwilliams MD [facility]0 [place] [address] 12/23/2023 8:00 AM EDT Telemedicine [facility], [facility] 8 [place] [phone] Mindi Gonzalez LPC 8 [place] [address] 12/23/2023 11:00 AM EDT Office Visit Audiology, [place] [address] [place] [address] Norm Amin Au.D. [address] [place] [address] 12/30/2023 8:15 AM EDT Imaging Radiology [address] [place] [address] 03/09/2024 2:00 PM EDT Office Visit Cardiology, [facility] [address] [place] [address] Romana Mckoy CRNP [address] [place] [address] 03/16/2024 9:20 AM EDT Office Visit Family Practice, [place] [address] [place] [address] Jaylen Mcwilliams MD [address] [place] [address] 06/10/2024 9:20 AM EST Office Visit Dermatology [facility] 68 [place] [phone] Mak Hazel PA-C [address] [place] [address] 11/30/2024 1:10 PM EDT Office Visit Optometry, [place] 16 [place] [address] Shad Green, Barrett Blank, AROLDO 16 [place] [address] Health Maintenance Due Date Last Done Comments [...] Primary documented in this encounter Care Teams Gaming Investigator Relationship Specialty Start Date End Date Jaylen Mcwilliams MD [address] [place] [address] PCP - General Family Medicine 03/05/23 documented as of this encounter
--- OUTSIDE RECORDS SUMMARY | 2024-04-24 16:20 | External Medical Summary ---
Author Name Unknown Address Unknown Organization [id number]:[facility] [place] [address] [place] [address] Laboratory Report Ordering Provider Test Date Status KAROLINA DOYLE 12/26/2023 08:01:01 Final Observation Date Value Abnormality Reference (Units ) Status WBC, Total 12/26/2023 08:01:01 5.96 4.00-10.80 (K/uL) Final RBC 12/26/2023 08:01:01 4.51 3.85-5.15 (M/uL) Final Hemoglobin 12/26/2023 08:01:01 13.7 12.0-15.3 (g/dL) Final HCT 12/26/2023 08:01:01 42.5 36.0-45.2 (%) Final MCV 12/26/2023 08:01:01 94.2 81.5-97.5 (fL) Final MCH 12/26/2023 08:01:01 30.4 27.0-34.0 (pg) Final MCHC 12/26/2023 08:01:01 32.2 32.0-36.0 (g/dL) Final RDW 12/26/2023 08:01:01 12.8 11.5-15.5 (%) Final Platelets 12/26/2023 08:01:01 221 140-400 (K/uL) Final MPV 12/26/2023 08:01:01 11.7 6.6-11.1 (fL) Final Nucleated erythrocytes/100 leukocytes [Ratio] in Blood by Automated count 12/26/2023 08:01:01 0 <=0 (/100 WBCs) Final Performing Location [facility] [address] [place] [address]
--- OUTSIDE RECORDS SUMMARY | 2024-04-24 16:20 | External Medical Summary | Summary of Care ---
Author Name Unknown Organization [facility] Address [address] [place] [address] Phone [phone] Care Team Providers Care Sustainability Manager Name Role Phone Jaylen Mcwilliams MD Primary Care Provider +1- [phone] Reason for Visit * Reason Comments Outpatient Testing Encounter Details Date Type Department Care Team (Late st Contact Info) Description 12/26/2023 9:10 AM EDT Laboratory Laboratory Patient Service [address] [phone] [address] JUSTICE (dyspnea on exertion); Fatigue, unspecified type; Chest heaviness; HTN, goal below 140/90; Family history of premature CAD; Dyslipidemia, goal LDL below 100; Heart palpitations; Essential hypertension with goal blood pressure less [...] mRNA, LNP-s, No Pre serve, 2-Dose Series ([employer]) 10/30/2020,10/09/2020 COVID-19, MRNA-LNP, 23-24, P F, 30 MCG/0.3 mL, 12 YRS AND ABOVE, [facility] 05/12/2023 Seasonal Influenza Virus [...] Description 12/30/2023 8:15 AM EDT Imaging Radiology [address] [place] [address] 01/06/2024 11:00 AM EDT Telemedicine [address] [place] [phone] Mindi Gonzalez [address] [address] 01/20/2024 11:00 AM EDT [address]medicine [address] [phone] Mindi Gonzalez LPC [address] [place] [address] 01/27/2024 11:00 AM EDT Office Visit Audiology, [address] [place] [address] Norm Amin Au.D. [address] [place] [address] 03/09/2024 2:00 PM EDT Office Visit Cardiology, [facility] [address] [facility] [place] [address] Romana Mckoy CRNP [address] [place] [address] 03/16/2024 9:20 AM EDT Office Visit [address] [address] Jaylen Mcwilliams MD [address] [place] [address] 06/10/2024 9:20 AM EST Office Visit Dermatology [facility] [address] [place] [address] Mak Hazel PA-C [address] [place] [address] 06/22/2024 9:20 AM EST Office Visit [address] [address] Jaylen Mcwilliams MD [address] [place] [address] 11/30/2024 1:10 PM EDT Office Visit Optometry, [place] [address] [place] [address] Barrett Kulkarni Jr., OD 16 [place], [place] [phone] Pending Results Name Type Priority Associated Diagnoses Date /Time CBC Lab Routine Essential hypertension with goal blood pressure less than 140/90 12/26/2023 8:01 AM EDT COMPREHENSIVE METABOLIC PANEL Lab Routine Essential hypertension with goal blood pressure less than 140/90 12/26/2023 8:01 AM EDT LIPID PANEL WITH DIRECT LDL IF TG IS HIGH Lab Routine Essential hypertension with goal blood pressure less than 140/90 12/26/2023 8:01 AM EDT TSH WITH FREE T4 IF INDICATED Lab Routine Essential hypertension with goal blood pressure less than 140/90 12/26/2023 8:01 AM EDT Health Maintenance Due Date Last [...] as of this encounter Visit Diagnoses Diagnosis JUSTICE (dyspnea on exertion) Other dyspnea and respiratory abnormality Fatigue, unspecified type Chest heaviness Other chest pain HTN, goal below 140/90 Unspecified essential hypertension Family history of premature CAD Family history of ischemic heart disease Dyslipidemia, goal LDL below 100 Other and unspecified hyperlipidemia Heart palpitations Palpitations Essential hypertension with goal blood pressure less than 140/90 documented in this encounter Care Teams Sustainability Manager Relationship Specialty Start Date End Date Jaylen Mcwilliams MD [address] [place] [address] PCP - General Family Medicine 03/05/23 documented as of this encounter
--- OUTSIDE RECORDS SUMMARY | 2024-04-24 16:20 | External Medical Summary ---
Author Name Unknown Address Unknown Organization [id number]:[facility] [place] [address] [place] [address] Laboratory Report Ordering Provider Test Date Status KAROLINA DOYLE 12/26/2023 08:01:01 Final Observation Date Value Abnormality Reference (Units ) Status TSH 12/26/2023 08:01:01 1.84 0.27-4.20 (uIU/mL) Final Performing Location LABORATORY C - [address] [facility] [address]
--- OUTSIDE RECORDS SUMMARY | 2024-04-24 16:20 | External Medical Summary ---
Author Name Unknown Address Unknown Organization [id number]:LABORATORY [facility] [place] - [address] [place] [address] Laboratory Report Ordering Provider Test Date Status KAROLINA DOYLE 12/26/2023 08:01:01 Final Observation Date Value Abnormality Reference (Units ) Status Triglyceride 12/26/2023 08:01:01 97 <=174 ( mg/dL) Final Triglyceride Reference Range s (mg/dL):
<150 Acceptable
150-174 Borderline high
175-499 High
>=500 Very high Cholesterol 12/26/2023 08:01:01 148 <200 (mg /dL) Final Total Cholesterol Reference Ranges (mg/dL):
<200 Desirable
200-239 Borderline high
>=240 High HDL 12/26/2023 08:01:01 52 >49 (mg/dL ) Final HDL Cholesterol Reference Ra nges (mg/dL):
>=60 High (Desirable)
<50 Low (Undesirable) For Females
<40 Low (Undesirable) For Males NON-HDL CHOLESTEROL 12/26/2023 08:01:01 96 <=159 (mg/dL) Final Non-HDL Cholesterol Referenc e Range (mg/dL):
<100 Target level for high risk ASCVD patient
<130 Optimal for general population
130-159 Near optimal for general population
160-189 Borderline High
190-219 High
>=220 Very High LDL, (calculated) 12/26/2023 08:01:01 77 <= 129 (mg/dL) Final LDL Cholesterol Reference Ra nges (mg/dL):
<70 Target level for high risk ASCVD patient
<100 Optimal for general population
100-129 Near optimal for general population
130-159 Borderline high
160-189 High
>=190 Very high Performing Location LABORATORY [facility] [place] - [address] [facility] [address]
--- OUTSIDE RECORDS SUMMARY | 2024-04-24 16:20 | External Medical Summary | Summary of Care ---
Author Name Unknown Organization [facility] Address [address] [place] [address] Phone [phone] Care Team Providers Care Child Life Therapist Name Role Phone Jaylen Mcwilliams MD Primary Care Provider [phone]- [phone] Reason for Visit * Reason Comments Follow Up Encounter Details Date Type Department Care Team (Late st Contact Info) Description 12/10/2023 8:00 AM EDT Office Visit [facility] [address] [place], [place] [id number] Jaylen Mcwilliams MD [address] [place] [address] Essential hypertension with goal blood pressure less than 140/90*; LALIT (generalized anxiety disorder); Gastroesophageal reflux disease, unspecified whether esophagitis present; Mild episode of recurrent major depressive disorder (HCC); Mixed hyperlipidemia; Moderate episode of recurrent major depressive disorder (HCC); Obesity, Class II, BMI 35-39.9, isolated (see actual BMI) Allergies No known active allergiesdocumented as of this encounter (statuses as of 12/10/2023) Medications Medication Sig Dispensed Refills Start Date [...] as of this encounter (statuses as of 12/10/2023) Active Problems Problem Noted Date Diagnosed Date [...] as of this encounter (statuses as of 12/10/2023) Resolved Problems Problem Noted Date Diagnosed Date Resolved Date Closed nondisplaced fracture of proximal phalanx of lesser toe of right foot 09/04/2022 12/0 02/2023 Essential hypertension with goal blood pressure less than 130/80 03/18/2019 10/27/2019 Family history of ischemic heart disease 07/24/2015 03/18/2019 documented as of this encounter (statuses as of 12/10/2023) Immunizations Name Administration Dates Next Due COVID-19 mRNA, LNP-s, No Pre serve, 2-Dose Series ([employer]) 10/30/2020,10/09/2020 COVID-19, MRNA-LNP, 23-24, P F, 30 MCG/0.3 mL, 12 YRS AND ABOVE, IM (P[employer]-Comirnat) 05/12/2023 Seasonal Influenza Virus Vac cine, Unspecified [...] Sign Reading Time Taken Comments Blood Pressure 100/60 12/10/2023 8:05 AM EDT Pulse 59 12/10/2023 8:05 AM EDT Temperature 36.4 C (97.5 F) 12/10/2023 8:05 AM ED T Respiratory Rate 20 12/10/2023 8:05 AM EDT Oxygen Saturation 96% 12/10/2023 8:05 AM EDT Inhaled Oxygen Concentration - - Weight 85.2 kg (187 lb 12.8 oz) 12/10/2023 8:05 AM EDT Height - - Body Mass Index 31.25 06/27/2023 9:39 AM EST documented in this encounter Progress Notes * Jaylen Mcwilliams MD - 12/10/2023 8:46 AM EDT Subjective: Deb Bansal is a 63 year old female Chief Complaint Patient presents with Follow Up Nursing Notes: NuddTessa, LORENA 12/10/23 0871 Signed Follow up hot flashes. HPI: Is a 63-year-old female presents to the office for follow-up examination. She does have essential hypertension with a 60 and that is under good control. She is generalized anxiety disorder and depressive symptoms that are well controlled with her current SSRI. She does have mixed hyperlipidemia with an LDL of 78 that is under good control she has lost 5 lb since her last visit will continue that. She was also encouraged to exercise aerobically. She not complaining of any acid preventive since he will can you get the flu vaccine and the COVID-19 booster yearly. She has had the RSV vaccine. . She will be recheck in 6 months. PMH: Medication list, PMH, Family history, social history, and problem list have been reviewed and updated in the Electronic Medical Record as noted below. Patient Active Problem List Diagnosis GERD (gastroesophageal [...] performed by Annette Berger DO at [facility] EGD, FLEXIBLE, DIAGNOSTIC 11/24/2018 erosive gastropathy/ESOPHAGOGASTRODUODENOSCOPY (EGD), FLEXIBLE, TRANSORAL, DIAGNOSTIC performed by Annette Berger DO at [facility] PARTIAL HYSTERECTOMY REMOVAL OF APPENDIX Review of patient's allergies indicates: No Known Allergies Family History Problem Relation Name Age of Onset Heart Disorder Mother [place] x 2 Skin cancer Brother Family Status Relation Status Fa Mo Alive Bro Alive skin ca Social History Tobacco Use Smoking status: Never Smokeless tobacco: Never Substance Use Topics Alcohol use: Yes Comment: rare Vaping/E-Cigarette Use Vaping/E-Cigarette Substances Vaping/E-Cigarette Devices Review of Systems: [...] systems reviewed and are negative. Objective: BP 100/60 (BP Site: Left Arm, BP Position: Sitting, BP Cuff Size: Regular) | Pulse 59 | Temp 36.4 C (97.5 F) (Tympanic) | Resp 20 | Wt 85.2 kg (187 lb 12.8 oz) | SpO2 96% | BMI 31.25 kg/m | BSA1.98 m Physical Exam: General: alert, healthy, no [...] no increased warmth of the joints. ASSESSMENT/PLAN: Essential hypertension with goal blood pressure less than 140/90 (Primary) - CBC; Future; Expected date: 12/10/2023 - COMPREHENSIVE METABOLIC PANEL; Future; Expected date: 12/10/2023 - LIPID PANEL WITH DIRECT LDL IF TG IS HIGH; Future; Expected date: 12/10/2023 - TSH WITH FREE T4 IF INDICATED; Future; Expected date: 12/10/2023 LALIT (generalized anxiety disorder) Gastroesophageal reflux disease, unspecified whether esophagitis present Mild episode of recurrent major depressive disorder (HCC) Mixed hyperlipidemia Moderate episode of recurrent major depressive disorder (HCC) Obesity, Class II, BMI 35-39.9, isolated (see actual BMI) Follow-up: Return in about 6 months (around 06/11/2024). | Check-out note: Sign HIPAA, note family comments Jaylen Mcwilliams MD 12/10/23 documented in this encounter Nursing Notes * NudTessa davis LPN - 12/10/2023 8:05 AM EDT Follow up hot flashes. documented in this encounter Plan of Treatment Upcoming Encounters Date Type Department Care Team (Late st Contact Info) Description 12/23/2023 8:00 AM EDT Telemedicine Psychology, [facility] [address] [place] [phone] Mindi Gonzalez [facility] [address] [place] [address] 12/23/2023 11:00 AM EDT Office Visit Audiology, [place] [address] [place] [address] Norm Amin Au.D. [address], [place] [phone] 12/30/2023 8:15 AM EDT Imaging Radiology [facility] [address]st [facility] [address] [facility] [place] [id number] 03/09/2024 2:00 PM EDT Office Visit Cardiology, [facility] [address] [place] [address] Romana Mckoy CRNP [address] [place] [address] 03/16/2024 9:20 AM EDT Office Visit Family Practice, [facility] [address] [place] [address] Jaylen Mcwilliams MD [address] [place] [address] 06/10/2024 9:20 AM EST Office Visit Dermatology [facility] [address] [place] [phone] Mak Hazel PA-C [address] [place] [address] 06/22/2024 9:20 AM EST Office Visit Family [facility] [address] [place] [address] Jaylen Mcwilliams MD [address] [place] [address] 11/30/2024 1:10 PM EDT Office Visit Optometry, [place] [address] [place] [address] Shad Green, Barrett Blank, AROLDO [address] [place] [address] Scheduled Orders Name Type Priority Associated Diagnoses Orde r Schedule CBC Lab Routine Essential hypertension with goal blood pressure less than 140/90 Expected: 12/10/2023 (Approximate), Expires: 12/09/2024 COMPREHENSIVE METABOLIC PANEL Lab Routine Essential hypertension with goal blood pressure less than 140/90 Expected: 12/10/2023 (Approximate), Expires: 12/09/2024 LIPID PANEL WITH DIRECT LDL IF TG IS HIGH Lab Routine Essential hypertension with goal blood pressure less than 140/90 Expected: 12/10/2023 (Approximate), Expires: 12/09/2024 TSH WITH FREE T4 IF INDICATED Lab Routine Essential hypertension with goal blood pressure less than 140/90 Expected: 12/10/2023 (Approximate), Expires: 12/09/2024 Health Maintenance Due Date Last Done Comments [...] as of this encounter Visit Diagnoses Diagnosis Essential hypertension with goal blood pressure less than 140/90- Primary LALIT (generalized anxiety disorder) Generalized anxiety disorder Gastroesophageal reflux disease, unspecified whether esophagitis present Mild episode of recurrent major depressive disorder (HCC) Mixed hyperlipidemia Moderate episode of recurrent major depressive disorder (HCC) Obesity, Class II, BMI 35-39.9, isolated (see actual BMI) Morbid obesity documented in this encounter Care Teams Child Life Therapist Relationship Specialty Start Date End Date Jaylen Mcwilliams MD [address] [place] [address] PCP - General Family Medicine 03/05/23 documented as of this encounter"
--- OUTSIDE RECORDS SUMMARY | 2024-04-24 16:20 | External Medical Summary | Summary of Care ---
Author Name Unknown Organization [facility] Address [address] [place] [address] Phone [phone] Care Team Providers Care Branch Associate Name Role Phone Jaylen Mcwilliams MD Primary Care Provider [phone]- [phone] Reason for Visit * Reason Onset Date Comments Advice 11/28/2023 Encounter Details Date Type Department Care Team (Late st Contact Info) Description 11/28/2023 Telephone Radiology, [place] [address] [place] [address] Services, [facility] [address] [place] [address] Advice Allergies No known active allergiesdocumented as of this encounter (statuses as of 11/28/2023) Medications Medication Sig Dispensed Refills Start Date [...] as of this encounter (statuses as of 11/28/2023) Active Problems Problem Noted Date Diagnosed Date [...] as of this encounter (statuses as of 11/28/2023) Resolved Problems Problem Noted Date Diagnosed Date Resolved Date Closed nondisplaced fracture of proximal phalanx of lesser toe of right foot 09/04/2022 12/0 02/2023 Essential hypertension with goal blood pressure less than 130/80 03/18/2019 10/27/2019 Family history of ischemic heart disease 07/24/2015 03/18/2019 documented as of this encounter (statuses as of 11/28/2023) Immunizations Name Administration Dates Next Due COVID-19 mRNA, LNP-s, No Pre serve, 2-Dose Series ([employer]) 10/30/2020,10/09/2020 COVID-19, MRNA-LNP, 23-24, P F, 30 MCG/0.3 mL, 12 YRS AND ABOVE, IM ([email or web address]) 05/12/2023 Seasonal Influenza Virus Vac cine, Unspecified [...] encounter Miscellaneous Notes * Telephone Encounter - Pino Gibson OSA - 11/28/2023 10:[address] Complete is scheduled at [facility] on 12/30/23 @ 8:15am. Thank you, [facility] Radiology Scheduling documented in this encounter Plan of Treatment Upcoming Encounters Date Type Department Care Team (Late st Contact Info) Description 12/05/2023 10:00 AM EDT Telemedicine [facility] [address] [place] [phone] Mindi Gonzalez [facility] [address] [place] [address] 12/10/2023 8:00 AM EDT Office Visit [facility] [address] [place] [address] Jaylen Mcwilliams MD [address] [place] [address] 12/23/2023 11:00 AM EDT Office Visit Audiology, [place] [address] [place] [address] Norm Amin Au.D. [address] [place] [address] 12/30/2023 8:15 AM EDT Imaging Radiology [facility] [facility] [address] [place] [address] 03/09/2024 2:00 PM EDT Office Visit Cardiology, [facility] [address] [place] [address] Romana Mckoy CRNP [address] [place] [address] 03/16/2024 9:20 AM EDT [facility] [address] [place] [address] Jaylen Mcwilliams MD [address] [place] [address] 06/10/2024 9:20 AM EST Office Visit Dermatology [facility] [address] [place] [phone] Mak Hazel PA-C [address] [place] [address] 11/30/2024 1:10 PM EDT Office Visit Optometry, [place] [address] [place] [address] Barrett Kulkarni Jr., AROLDO [address] [place] [address] Health Maintenance Due Date Last Done Comments [...] filedocumented as of this encounter Care Teams Branch Associate Relationship Specialty Start Date End Date Jaylen Mcwilliams MD [facility] [place] [address] PCP - General Family Medicine 03/05/23 documented as of this encounter
--- OUTSIDE RECORDS SUMMARY | 2024-04-24 16:20 | External Medical Summary | Summary of Care ---
Author Name Unknown Organization [facility] Address [address] [facility] [place] [address] Phone [phone] Care Team Providers Care Appeals Court Associate Justice Name Role Phone Jaylen Mcwilliams MD Primary Care Provider +1- [phone] Reason for Referral * Precert (Routine) - Pending Review Specialty Diagnoses / Procedures Referred By Contac t Referred To Contact Radiology Diagnoses JUSTICE (dyspnea on exertion) Fatigue, unspecified type Chest heaviness HTN, goal below 140/90 Family history of premature CAD Dyslipidemia, goal LDL below [address] CARDIAC COMPLETE Romana Mckoy CRNP [address] [place] [address] Referral ID Status Reason Start Date Expiration Date Visits Requested Visits Authorized [id number] Pending Review Precert 11/27/2023 1 1 * Precert (Routine) - Pending Review Specialty Diagnoses / Procedures Referred By Contac t Referred To Contact Radiology Diagnoses JUSTICE (dyspnea on exertion) Fatigue, unspecified type Chest heaviness HTN, goal below 140/90 Family history of premature CAD Dyslipidemia, goal LDL below [address] FFR CORONARY ARTERIES Romana Mckoy CRNP [address] [place] [address] Referral ID Status Reason Start Date Expiration Date Visits Requested Visits Authorized [id number] Pending Review Precert 11/27/2023 1 1 Reason for Visit * Reason Comments Follow Up Encounter Details Date Type Department Care Team (Late st Contact Info) Description 11/27/2023 2:30 PM EDT Office Visit Cardiology, [facility] [address] [place] [address] Romana Mckoy CRNP [address] [place] [address] Chest heaviness*; JUSTICE (dyspnea on exertion); Fatigue, unspecified type; HTN, goal below 140/90; Family history of premature CAD; Dyslipidemia, goal LDL below 100; Heart palpitations Allergies No known active allergiesdocumented as of this encounter (statuses as of 11/27/2023) Medications Medication Sig Dispensed Refills Start Date [...] the evening 90 Tablet 2 10/27/2023 Active pantoprazole (PROTONIX) 40 MG TBEC Take 1 Tab by mouth daily. 30 minutes before the first meal of the day. Do not crush, split or chew the tablet 90 Tab 3 03/28/2020 4 Discontinued Triamcinolone Acetonide 0.1 % External Cream (Aristocort) Apply to the legs and chest twice daily for 1-2 weeks as needed 80 g 1 06/10/2023 4 Discontinued documented as of this encounter (statuses as of 11/27/2023) Active Problems Problem Noted Date Diagnosed Date [...] as of this encounter (statuses as of 11/27/2023) Resolved Problems Problem Noted Date Diagnosed Date Resolved Date Closed nondisplaced fracture of proximal phalanx of lesser toe of right foot 09/04/2022 12/0 02/2023 Essential hypertension with goal blood pressure less than 130/80 03/18/2019 10/27/2019 Family history of ischemic heart disease 07/24/2015 03/18/2019 documented as of this encounter (statuses as of 11/27/2023) Immunizations Name Administration Dates Next Due COVID-19 mRNA, LNP-s, No Pre serve, 2-Dose Series ([employer]) 10/30/2020,10/09/2020 COVID-19, MRNA-LNP, 23-24, P F, 30 MCG/0.3 mL, 12 YRS AND ABOVE, IM ([employer]-Comirnaty) 05/12/2023 Seasonal Influenza Virus Vac cine, Unspecified [...] Sign Reading Time Taken Comments Blood Pressure 110/68 11/27/2023 2:24 PM EDT Pulse 60 11/27/2023 2:24 PM EDT Temperature - - Respiratory Rate - - Oxygen Saturation 96% 11/27/2023 2:24 PM EDT Inhaled Oxygen Concentration - - Weight 87.1 kg (192 lb) 11/27/2023 2:24 PM EDT Height - - Body Mass Index 31.95 06/27/2023 9:39 AM EST documented in this encounter Progress Notes * Romana Mckoy CRNP - 11/27/2023 2:30 PM EDT Cardiology Outpatient Visit 11/27/2023 Primary Media Relations Associate: Dr. Walker Past medical history: History of atypical chest pain Negative nuclear stress 05/2015 Negative exercise stress, resting echo unremarkable 05/24/2021 Syncope--likely vasovagal mediated Zio 04/04/2021 showed sinus rhythm, 79 beats per minute. No significant arrhythmias Hypertension Hyperlipidemia Family history of CAD Mother with coronary stents at age 60, brother with PCI in his 60s Remote history of palpitations, on metoprolol HPI Very pleasant 63-year-old female presenting to the cardiology office today in routine follow-up. Was last evaluated by Dr. Walker in February of 2022. Was initially evaluated in April 2021 after having an episode at a local restaurant where she felt warm, lightheaded, heavy perspiration and slumped to the ground. She had a separate complaint at that time occasional chest tightness. She noted to have a nonischemic exercise stress echocardiogram. Today the patient presents feeling generally well, however, over the last few months she has been having worsening dyspnea with exertion. She is also noticed more fatigue despite good sleep habits. Denies chest pain but will occasionally have chest heaviness that can occur with both rest or exertion. Has been having concerns with hot flashes. Following with obgyn hospitalist physician. Was hesitant to start hormonal therapy given her family history of CAD. Of note, her brother recently had a coronary stent placed, he is in his 60s. She states she is compliant with all medications, and offers no side effects. Current Outpatient Medications Medication Sig Dispense Refill [...] performed by Annette Berger DO at ENDOSCOPY [facility] EGD, FLEXIBLE, DIAGNOSTIC 11/24/2018 erosive gastropathy/ESOPHAGOGASTRODUODENOSCOPY (EGD), FLEXIBLE, TRANSORAL, DIAGNOSTIC performed by Annette Berger DO at ENDOSCOPY [facility] PARTIAL HYSTERECTOMY REMOVAL OF APPENDIX Social History Tobacco Use Smoking status: Never Smokeless tobacco: Never Substance Use Topics Alcohol use: Yes Comment: rare Drug use: No Review of patient's allergies indicates: No Known Allergies Review of Systems: See HPI for pertinent positives. All others negative, other than those noted in HPI. Physical Exam BP 110/68 | Pulse 60 | Wt 87.1 kg (192 lb) | SpO2 96% | BMI 31.95 kg/m | BSA 2 m General: No acute distress. A+Ox3. HEENT: Normocephalic. Atraumatic. Conjunctiva and sclera clear. NECK: No carotid bruits. No JVD. Carotid upstrokes are brisk. Heart: RRR. S1 and S2 noted without murmur, rubs, gallops. PMI non displaced. Lungs: Clear to auscultation. No wheezes, rhonchi, rales. Abdomen: Normal bowel sounds. Soft. Nontender. No masses or organomegaly. No abdominal bruits. Extremities: No edema. No clubbing or cyanosis. Pulses: radial=2/4, posterior tibial=2/4, dorsalis pedis = 2/4. NEURO: No focal deficits. PSYCH: Normal. Lab data/imaging study review: Exercise stress echo 05/2021 The primary indication after review was deemed appropriate and the examination was performed. The stress echo is negative for inducible ischemia. No arrhythmias. Normal heart rate and blood pressure response to exercise. Average exercise tolerance. At rest, normal LV chamber size with mild concentric LVH. Normal LV systolic function without regional wall motion abnormality, EF 55 to 60%. Normal diastolic function. No significant valvular pathology. Zio 03/2021 Agree with Preliminary Findings : The recording duration was 2 days and 15 hours. The predominant rhythm is normal sinus rhythm at an average heart rate of 79 BPM. No clinically significant arrhythmias were recorded. A single symptomatic event correlated with sinus rhythm. Mary Lynch MD Preliminary Findings Patient had a min HR of 50 bpm, max HR of 123 bpm, and avg HR of 79 bpm. Predominant underlying rhythm was Sinus Rhythm. 1 run of Supraventricular Tachycardia occurred lasting 5 beats with a max rate of 113 bpm (avg 107 bpm). Possible Atrial Tachycardia with block was present. Isolated SVEs were rare (<1.0%), SVE Couplets were rare (<1.0%), and SVE Triplets were rare (<1.0%). Isolated VEs were rare (<1.0%), and no VE Couplets or VE Triplets were present. Impression/Plan: This is a 63 year old female who is being evaluated in the cardiology office for ongoing care/risk management for the below diagnoses. 1. Dyspnea on exertion 2. Fatigue 3. Chest heaviness 4. Family history of premature coronary disease -Patient with dyspnea on exertion, chest heaviness, and generalized fatigue. -Family history of premature coronary disease in both her mother and brother at age 60 -EKG reassuring from a cardiac standpoint showing normal sinus rhythm, 60 beats per minute. No ischemic changes. -Prior stress testing unremarkable Continue ASA [address] scan ordered to assess coronary arteries. No Need for HCG test (only for women under 50 years)- patient also status post partial hysterectomy Current sCr 0.7, will need renal function within 1 month before test- orders placed Current on/ beta mo-- metoprolol tartrate 25 mg twice daily Average heart rate 60-70s No Contrast Dye allergy 2. HTN, goal below 140/90 -Controlled. 1. Continue hydrochlorothiazide, lisinopril, and metoprolol tartrate as ordered. 3. Dyslipidemia, goal LDL below 100 -LDL controlled, 78. 1. Continue Crestor 10 mg daily 4. Palpitations Remote history of palpitations. Symptoms controlled on metoprolol tartrate 25 mg twice daily- continue The patient agrees to the above plan and will call with additional questions or concerns. ER with all emergencies advised. Follow-up: Return in about 3 months (around 02/27/2024). | Check-out note: Schedule cardiac ct -- follow up after I spent a total of 40 minutes on the date of service in preparation, delivery, and documentation ofthe care provided to Deb Bansal excluding any time spent in the performance of separately billed services. SAMUEL To, Department of Cardiology This chart was completed in part utilizing [employer] Speech Voice Recognition Software. Grammatical errors, random word insertions, prounoun errors, and incomplete sentences are an occasional consequence of this system due to software limitations, ambient noise, and hardware issues. Any formal questions or concerns about the content, text, or information contained within the body of this dictation should be directly addressed to the provider for clarification. documented in this encounter Nursing Notes * Chayo Tate CMA - 11/27/2023 2:24 PM EDT Examination Room: 7 Name: Deb Bansal Date of : (1960) Reason for Visit: 1 yr Interim Hospitalization(s): none Problems/Concerns: hot flashes Chest Pain/SOB: denied chest pain, but does have SOBOE. My [facility] is a way you can talk to your provider online through e-mail. Would you like to sign up? I can activate it for you? ALREADY ACTIVE Patient was instructed to not get up on the exam table until directed and assisted by their provider; patient is to remain seated in the chair/ wheelchair/ exam table for fall prevention and safety reasons. Patient is aware to have assistance to step down off exam table with personnel. Patient voiced full comprehension of instructions. documented in this encounter Plan of Treatment Upcoming Encounters Date Type Department Care Team (Late st Contact Info) Description 12/05/2023 10:00 AM EDT Telemedicine [facility] [address] [place] [address] Mindi Gonzalez LPC 8 [place] [address] 12/10/2023 8:00 AM EDT Office Visit [facility] [address] [place] [address] Jaylen Mcwilliams MD [address] [place] [address] 12/23/2023 11:00 AM EDT Office Visit Audiology, [place] [address] [place] [address] Norm Amin Au.D. [address] [place], [place] [id number] 03/09/2024 2:00 PM EDT Office Visit Cardiology, [facility] [address] [place] [address] Romana Mckoy CRNP [address] [place] [address] 03/16/2024 9:20 AM EDT [facility] [address] [place] [address] Jaylen Mcwilliams MD [address] [place] [address] 06/10/2024 9:20 AM EST Office Visit Dermatology [facility] [address] [place] [address] Mak Hazel PA-C [address] [place] [address] 11/30/2024 1:10 PM EDT Office Visit Optometry, [place] [address] [place] [address] Barrett Kulkarni Jr., OD [address] [place], [place] [id number] Scheduled Orders Name Type Priority Associated Diagnoses Orde r Schedule EKG EKG Routine JUSTICE (dyspnea on exertion) Fatigue, unspecified type Chest heaviness HTN, goal below 140/90 Family history of premature CAD Dyslipidemia, goal LDL below 100 Heart palpitations Ordered: 11/27/2023 CT FFR CORONARY ARTERIES Medical Imaging Routine JUSTICE (dyspnea on exertion) Fatigue, unspecified type Chest heaviness HTN, goal below 140/90 Family history of premature CAD Dyslipidemia, goal LDL below 100 Heart palpitations Expected: 11/27/2023, Expires: 12/27/2024 CT CARDIAC COMPLETE Medical Imaging Routine JUSTICE (dyspnea on exertion) Fatigue, unspecified type Chest heaviness HTN, goal below 140/90 Family history of premature CAD Dyslipidemia, goal LDL below 100 Heart palpitations Expected: 11/27/2023, Expires: 12/27/2024 CREATININE Lab Routine JUSTICE (dyspnea on exertion) Fatigue, unspecified type Chest heaviness HTN, goal below 140/90 Family history of premature CAD Dyslipidemia, goal LDL below 100 Heart palpitations Expected: 11/27/2023, Expires: 11/26/2024 Health Maintenance Due Date Last Done Comments [...] as of this encounter Visit Diagnoses Diagnosis Chest heaviness- Primary Other chest pain JUSTICE (dyspnea on exertion) Other dyspnea and respiratory abnormality Fatigue, unspecified type HTN, goal below 140/90 Unspecified essential hypertension Family history of premature CAD Family history of ischemic heart disease Dyslipidemia, goal LDL below 100 Other and unspecified hyperlipidemia Heart palpitations Palpitations documented in this encounter Care Teams Appeals Court Associate Justice Relationship Specialty Start Date End Date Jaylen Mcwilliams MD [address] [place] [address] PCP - General Family Medicine 03/05/23 documented as of this encounter"
--- OUTSIDE RECORDS SUMMARY | 2024-04-24 16:20 | External Medical Summary ---
Author Name Unknown Address Unknown Organization K01:[facility] [place] [address] [place]tor [place] [address] Laboratory Report Ordering Provider Test Date Status VIVEKTRANGBREANA 12/26/2023 08:01:01 Final Observation Date Value Abnormality Reference (Units ) Status BUN 12/26/2023 08:01:01 19 6-20 (mg/dL) Final Creatinine 12/26/2023 08:01:01 0.8 0.5-1.0 (mg/dL) Final Glomerular filtration rate/1.73 sq M.predicted [Volume Rate/Area] in Serum, Plasma or Blood by Creatinine-based formula (CKD-EPI) 12/26/2023 08:01:01 81 >=60 (mL/min) Final eGFR is calculated based on the CKD-EPI 2020 equation Sodium 12/26/2023 08:01:01 141 135-146 (m mol/L) Final Potassium 12/26/2023 08:01:01 4.4 3.5-5.1 (m mol/L) Final Cl 12/26/2023 08:01:01 104 98-107 (mm ol/L) Final CO2 12/26/2023 08:01:01 27 22-32 (mmo l/L) Final Anion gap 12/26/2023 08:01:01 10 7-15 (mmol /L) Final Glucose 12/26/2023 08:01:01 96 70-120 (mg /dL) Final Albumin 12/26/2023 08:01:01 4.0 3.8-5.0 (g /dL) Final AST (Aspartate aminotransferase) 12/26/2023 08:01:01 23 10-35 (U/L) Final Alk Phos 12/26/2023 08:01:01 61 35-130 (U/ L) Final Bilirubin, Total 12/26/2023 08:01:01 0.4 <=1 .2 (mg/dL) Final Calcium 12/26/2023 08:01:01 9.9 8.4-10.2 ( mg/dL) Final Protein 12/26/2023 08:01:01 6.6 6.0-8.3 (g /dL) Final ALT (Alanine aminotransferase) 12/26/2023 08:01:01 30 10-35 (U/L) Final Performing Location [facility] [place] [address] [facility] [address]
--- OUTSIDE RECORDS SUMMARY | 2024-04-24 16:20 | External Medical Summary | Summary of Care ---
Author Name Unknown Organization [facility] Address [address] [place] [address] Phone [phone] Care Team Providers Care Computer Teacher Name Role Phone Jaylen Mcwilliams MD Primary Care Provider [phone]- [phone] Encounter Details Date Type Department Care Team (Late st Contact Info) Description 11/18/2023 Telephone Audiology, [place] [address] [place] [address] Norm Amin Au.D. [address] [place] [address] Allergies No known active allergiesdocumented as of this encounter (statuses as of 11/18/2023) Medications Medication Sig Dispensed Refills Start Date [...] as of this encounter (statuses as of 11/18/2023) Active Problems Problem Noted Date Diagnosed Date [...] as of this encounter (statuses as of 11/18/2023) Resolved Problems Problem Noted Date Diagnosed Date Resolved Date Closed nondisplaced fracture of proximal phalanx of lesser toe of right foot 09/04/2022 12/0 02/2023 Essential hypertension with goal blood pressure less than 130/80 03/18/2019 10/27/2019 Family history of ischemic heart disease 07/24/2015 03/18/2019 documented as of this encounter (statuses as of 11/18/2023) Immunizations Name Administration Dates Next Due COVID-19 mRNA, LNP-s, No Pre serve, 2-Dose Series ([employer]) 10/30/2020,10/09/2020 COVID-19, MRNA-LNP, 23-24, P F, 30 [...] encounter Miscellaneous Notes * Telephone Encounter - Maggie Farah OSA - 11/18/2023 11:07 AM EDT Patient called in to get a hearing aid appointment, gave and accepted 12/22 at 11 documented in this encounter Plan of Treatment Upcoming Encounters Date Type Department Care Team (Late st Contact Info) Description 11/27/2023 2:30 PM EDT Office Visit Cardiology, [facility] [address] [place] [address] Romana Mckoy CRNP [address] [place] [address] 12/05/2023 10:00 AM EDT Telemedicine Psychology, [facility] 8 [place] [address] Mindi Gonzalez, [facility] 8 [place] [address] 12/10/2023 8:00 AM EDT Office Visit [address] [address] Jaylen Mcwilliams MD [address] [place] [address] 12/23/2023 11:00 AM EDT Office Visit Audiology, [place] [address] [place], [place] [phone] Norm Amin Au.D. [address] [place], [place] [phone] 03/16/2024 9:20 AM EDT Office Visit [address] [address] Jaylen Mcwilliams MD [address] [place] [address] 06/10/2024 9:20 AM EST Office Visit Dermatology [facility] [address] [place] [phone] Mak Hazel PA-C [address] [place] [address] 11/30/2024 1:10 PM EDT Office Visit Optometry, [address] [id number] Barrett Kulkarni Jr., OD [address] [place], [place] [phone] Health Maintenance Due Date Last Done Comments [...] filedocumented as of this encounter Care Teams Computer Teacher Relationship Specialty Start Date End Date Jaylen Mcwilliams MD [facility]0 [place] [address] PCP - General Family Medicine 03/05/23 documented as of this encounter
--- OUTSIDE RECORDS SUMMARY | 2024-04-24 16:20 | External Medical Summary | Summary of Care ---
Author Name Unknown Organization [facility] Address [address] [place] [address] Phone [phone] Care Team Providers Care Metalsmith Apprentice Name Role Phone Jaylen Mcwilliams MD Primary Care Provider +1- [phone] Encounter Details Date Type Department Care Team (Late st Contact Info) Description 12/23/2023 11:00 AM EDT Office Visit Audiology, [place] [address] [place], [place] [phone] Norm Amin Au.D. [address] [place] [address] Hearing aid fitting or adjustment* Allergies No known active allergiesdocumented as of this encounter (statuses as of 12/23/2023) Medications Medication Sig Dispensed Refills Start Date [...] as of this encounter (statuses as of 12/23/2023) Active Problems Problem Noted Date Diagnosed Date [...] as of this encounter (statuses as of 12/23/2023) Resolved Problems Problem Noted Date Diagnosed Date Resolved Date Closed nondisplaced fracture of proximal phalanx of lesser toe of right foot 09/04/2022 12/0 02/2023 Essential hypertension with goal blood pressure less than 130/80 03/18/2019 10/27/2019 Family history of ischemic heart disease 07/24/2015 03/18/2019 documented as of this encounter (statuses as of 12/23/2023) Immunizations Name Administration Dates Next Due COVID-19 mRNA, LNP-s, No Pre serve, 2-Dose Series ([employer]) 10/30/2020,10/09/2020 COVID-19, MRNA-LNP, 23-24, P F, 30 MCG/0.3 mL, 12 YRS AND ABOVE, IM ([employer]-Comirnaty) 05/12/2023 Seasonal Influenza Virus Vac cine, Unspecified [...] Progress Notes * Norm Amin Au.D. - 12/23/2023 3:10 PM EDT Deb Bansal, 63 year old, was seen this date for a hearing aid orientation. Fitting rationale: first fit level 1 Deb Bansal is a new hearing aid user. The following was dispensed: Make: oticon Model: Real 1 miniRITE 1 Color Steel vogel Right SN: [id number] Left SN: [id number] Retention: 2 85 reciever 8mm vented dome Battery: LI Warranty: 12/03/26 Dispensed: 12/23/2023 Cook Dinner: Brennan Obtained: OVR Electroacoustic analyses indicated hearing aids are in good working order. Hearing aids were initially programmed to first fit and were adjusted level 1 Domes and humanities division chair length were judged to fit well and were reported to be comfortable. Deb Bansal was instructed on basic use, care, warning, realistic expectations, and communication strategies. The vendor hearing aid manual and tools were provided. Recommendations: Return in 2 weeks for follow up. Norm Salgado Scan: hearing aid measures documented in this encounter Plan of Treatment Upcoming Encounters Date Type Department Care Team (Mike Contact Info) Description 12/30/2023 8:15 AM EDT Imaging Radiology [address] 132 [facility] [place] [address] 01/06/2024 11:00 AM EDT Telemedicine [facility], [facility] [address] [place] [phone] Mindi Gonzalez, [facility] 8 [place] [address] 01/20/2024 11:00 AM EDT Telemedicine [facility], [facility] [address] [place] [address] Mindi Gonzalez, [facility] 8 [place] [address] 01/27/2024 11:00 AM EDT Office Visit Audiology, [place] [address] [place] [address] Norm Amin Au.D. [address] [place] [address] 03/09/2024 2:00 PM EDT Office Visit Cardiology, [facility] 132 [facility] [place] [address] Romana Mckoy CRNP 132 [place] [address] 03/16/2024 9:20 AM EDT Office Visit Family Practice, [facility] [address] [place] [address] Jaylen Mcwilliams MD [address] [place] [address] 06/10/2024 9:20 AM EST Office Visit Dermatology [facility] [address] [place] [phone] Mak Hazel PA-C [address] [place] [address] 06/22/2024 9:20 AM EST Office Visit Family [facility] [address] [place] [address] Jaylen Mcwilliams MD [address] [place] [address] 11/30/2024 1:10 PM EDT Office Visit Optometry, [place] [address] [place] [address] Shad Green, Barrett Blank, [place] [address] [place] [address] Health Maintenance Due Date Last Done Comments [...] this encounter Visit Diagnoses Diagnosis Hearing aid fitting or adjustment- Primary Fitting and adjustment of hearing aid documented in this encounter Care Teams Metalsmith Apprentice Relationship Specialty Start Date End Date Jaylen Mcwilliams MD [facility]0 [place] [address] PCP - General Family Medicine 03/05/23 documented as of this encounter
--- OUTSIDE RECORDS SUMMARY | 2024-04-24 16:20 | External Medical Summary | Summary of Care ---
Author Name Unknown Organization [facility] Address [address] [facility] [place] [address] Phone [phone] Care Team Providers Care Security Guard Name Role Phone Jaylen Mcwilliams MD Primary Care Provider [phone]- [phone] Reason for Referral * Precert (Routine) - Pending Review Specialty Diagnoses / Procedures Referred By Contac t Referred To Contact Radiology Diagnoses JUSTICE (dyspnea on exertion) Fatigue, unspecified type Chest heaviness HTN, goal below 140/90 Family history of premature CAD Dyslipidemia, goal LDL below [address] CARDIAC COMPLETE Romana Mckoy CRNP [address] [place] [address] Referral ID Status Reason Start Date Expiration Date Visits Requested Visits Authorized [id number] Pending Review Precert 11/27/2023 1 1 * Precert (Routine) - Pending Review Specialty Diagnoses / Procedures Referred By Contac t Referred To Contact Radiology Diagnoses JUSTICE (dyspnea on exertion) Fatigue, unspecified type Chest heaviness HTN, goal below 140/90 Family history of premature CAD Dyslipidemia, goal LDL below [address] FFR CORONARY ARTERIES Romana Mckoy CRNP [address] [place] [address] Referral ID Status Reason Start Date Expiration Date Visits Requested Visits Authorized [id number] Pending Review Precert 11/27/2023 1 1 Reason for Visit * Reason Comments Follow Up Encounter Details Date Type Department Care Team (Late st Contact Info) Description 11/27/2023 2:30 PM EDT Office Visit Cardiology, [facility] [address] [place] [address] Romana Mckoy CRNP [address] [place] [address] Chest heaviness*; JUSTICE (dyspnea on exertion); Fatigue, [...] mRNA, LNP-s, No Pre serve, 2-Dose Series ([email or web address]) 10/30/2020,10/09/2020 COVID-19, MRNA-LNP, 23-24, P F, 30 MCG/0.3 mL, 12 YRS AND ABOVE, IM (Weimob-Comirnaty) 05/12/2023 Seasonal Influenza Virus Vac cine, Unspecified [...] PM EDT Cardiology Outpatient Visit 11/27/2023 Primary Physicians And Surgeons: Dr. Walker Past medical history: History of [...] having concerns with hot flashes. Following with ob/gyn nurse. Was hesitant to start hormonal therapy given [...] performed by Annette Berger DO at [facility] EGD, FLEXIBLE, DIAGNOSTIC 11/24/2018 erosive gastropathy/ESOPHAGOGASTRODUODENOSCOPY (EGD), FLEXIBLE, TRANSORAL, DIAGNOSTIC performed by Annette Berger DO at [facility] PARTIAL HYSTERECTOMY REMOVAL OF APPENDIX Social [...] This chart was completed in part utilizing [employer] Speech Voice Recognition Software. Grammatical errors, random [...] Info) Description 12/05/2023 10:00 AM EDT Telemedicine [facility] [address] [place] [address] Mindi Gonzalez LPC 8 [place] [address] 12/10/2023 8:00 AM EDT Office Visit [facility] [address] [place] [address] Jaylen Mcwilliams MD [address] [place] [address] 12/23/2023 11:00 AM EDT Office Visit Audiology, [place] [address] [place] [address] Norm Amin Au.D. [address] [place], [place] [id number] 03/09/2024 2:00 PM EDT Office Visit Cardiology, [facility] [address] [place] [address] Romana Mckoy CRNP [address] [place] [address] 03/16/2024 9:20 AM EDT [facility] [address] [place] [address] Jaylen Mcwilliams MD [address] [place] [address] 06/10/2024 9:20 AM EST Office Visit Dermatology [facility] [address] [place] [phone] Mak Hazel PA-C [address] [place] [address] 11/30/2024 1:10 PM EDT Office Visit Optometry, [place] [address] [place] [address] Barrett Kulkarni Jr., OD [address] [place], [place] [phone] Scheduled Orders Name Type Priority Associated Diagnoses [...] Palpitations documented in this encounter Care Teams Security Guard Relationship Specialty Start Date End Date Jaylen Mcwilliams MD [address] [place] [address] PCP - General Family Medicine 03/05/23 documented as of this encounter"
--- OUTSIDE RECORDS SUMMARY | 2024-04-24 16:20 | External Medical Summary | Summary of Care ---
Author Name Unknown Organization [facility] Address [address] [facility] [place] [address] Phone [phone] Care Team Providers Care Sheet Music Salesperson Name Role Phone Jaylen Mcwilliams MD Primary Care Provider [phone]- [phone] Reason for Visit * Reason Onset Date Comments Cardiology Study 12/25/[address] Encounter Details Date Type Department Care Team (Late st Contact Info) Description 12/25/2023 Telephone Cardiac Studies, [facility] [address] [facility] [place] [id number] Romana Mckoy CRNP [address] [facility] [place] [address] Cardiology Study (CARDIAC CT) Allergies No known [...] mRNA, LNP-s, No Pre serve, 2-Dose Series ([employer]) 10/30/2020,10/09/2020 COVID-19, MRNA-LNP, 23-24, P F, 30 MCG/0.3 mL, 12 YRS AND ABOVE, IM (Rivono-Comirnat) 05/12/2023 Seasonal Influenza Virus Vac cine, Unspecified [...] PM EDT Cardiac CT instructions sent via [employer]. Bashir Sandhu RN documented in this encounter Plan of Treatment Upcoming Encounters Date Type Department Care Team (Late st Contact Info) Description 12/30/2023 8:15 AM EDT Imaging Radiology [address] [place] [address] 01/06/2024 11:00 AM EDT Telemedicine Denis Causey [address] [place] [address] [place] [phone] Mindi Gonzalez LPC [address] [place] [address] [place] [phone] 01/20/2024 11:00 AM EDT Telemedicine Denis Causey [address] [place] [address] [place] [phone] Mindi Gonzalez LPC [address] [place] [address] 01/27/2024 11:00 AM EDT Office Visit Audiology, [place] [address] [place] [address] Norm Amin Au.D. [address] [place], [place] [phone] 03/09/2024 2:00 PM EDT Office Visit Cardiology, [facility] [address] [place] [address] Romana Mckoy CRNP [address] [place] [address] 03/16/2024 9:20 AM EDT Office Visit Family [address] [address] Jaylen Mcwilliams MD [address] [place] [address] 06/10/2024 9:20 AM EST Office Visit Dermatology [address] [phone] Mak Hazel PA-C [address] [place] [address] 06/22/2024 9:20 AM EST Office Visit [address] [address] Jaylen Mcwilliams MD [address] [place] [address] 11/30/2024 1:10 PM EDT Office Visit Optometry, [place] [address] [place], [place] [phone] Barrett Kulkarni Jr., OD [address] [place], [place] [phone] Health Maintenance Due Date Last Done Comments [...] filedocumented as of this encounter Care Teams Sheet Music Salesperson Relationship Specialty Start Date End Date Jaylen Mcwilliams MD [address] [place] [address] PCP - General Family Medicine 03/05/23 documented as of this encounter
--- NOTE | 2024-04-24 16:32 | Emergency Department Note ---
Impression & Plan Syncope and collapse, Acute hypoxemic respiratory failure, Pneumonia, Elevated lactic acid level ED Provider Note HISTORY OF PRESENT ILLNESS: Patient is a 64-year-old female presenting with syncope and hypotension. Patient was at the [employer] football game when she reportedly slumped over in her seat and syncopized. People sitting next were called 911. Patient was found to be hypotensive on EMS arrival and was given a liter of fluids, but remained persistently hypotensive with a blood pressure of 100s over 60s and was brought to the emergency department for further evaluation. Patient reports she had a shot and 1 drink around 11 AM, but has not had anything else. She denies any chest pain, shortness of breath or lightheadedness prior to the syncopal episode. She does not remember passing out. She reports she was watching half- time and the next thing she remembers that she was surrounded by paramedics. EMS also reports the patient was hypoxic to the mid 80s on room air initially. Patient denies any DVT or PE history. She denies any anticoagulation use. She did recently test positive for COVID a little over a week ago. She states she been doing well up until then. On arrival to the ER, the patient on an episode of emesis. She denies any chest pain or shortness of breath. Denies any abdominal pain or nausea at this time. Denies any recent fevers. Denies any recent falls or head injuries. ROS: as above PHYSICAL EXAM: Constitutional: Patient appears in no acute distress. HENT: Head: Normocephalic and atraumatic. Eyes: EOMI, PERRL Mouth/Throat: Mucous membranes moist. Neck: Trachea midline. Neck supple. Cardiovascular: RRR, No murmurs, rubs or gallops. Intact distal pulses. Pulmonary/Chest: No respiratory distress. Breath sounds clear and equal bilaterally. No wheezes or rales. Abdominal: Abdomen soft, no tenderness, rebound or guarding. Musculoskeletal: No edema, tenderness or deformity noted. Skin: Warm and dry. No rash, erythema, pallor or cyanosis Psychiatric: Appropriate mood and affect for situation. Neurological: Alert and keenly responsive. CN II-XII grossly intact, moving all extremities equally and fully. MDM: - Vitals signs showed hypotensive, bradycardic and hypoxic. - History obtained via patient and EMS. History as above. - Chronic conditions affecting care: HTN; HLD - Differential diagnoses include, but are not limited to: ACS; dysrhythmia; electrolyte abnormality; pulmonary embolism; dissection - Order placed for continuous cardiac monitoring. At this time, monitor showed rate of 60 bpm with normal sinus rhythm, per my interpretation. - External medical records reviewed. - EKG interpreted by myself showed normal sinus rhythm. Rate bradycardic at 57 bpm. QT 472. No acute ischemic changes. - Laboratory workup interpreted by myself showed normal WBC; normal PT/INR; stable electrolytes; normal troponin; normal lipase; normal BNP; elevated lactate (2.1); slightly elevated alcohol (53.3) - CXR negative for pneumonia, per my interpretation. - CT head wo contrast negative for acute intracranial pathology - CT PE negative for PE, but noted to have lower lung alveolar opacities greater in the left lower lobe favoring pneumonia. - Patient given 1L NS in ER. Attempted to take the patient off of the supplemental oxygen that she required, but she desaturated back to the mid 80s. She is given IV Rocephin and IV doxycycline for treatment of her pneumonia. - Discussion was had with nurse case manager about patient's case and need for admission - Hospitalist, Dr. Ram, consulted for admission - Patient admitted to [facility] service for further evaluation and management. ASSESSMENT AND PLAN: Diagnosis: Syncope and collapse; acute hypoxic respiratory failure; pneumonia; elevated lactic acid level Plan: Admit Past Med/Surg History Problem List (Updated 04/24/24 @ 19:26 by Chacha Cedeno MD) Elevated lactic acid level (Acute) Pneumonia (Acute) Acute hypoxemic respiratory failure (Acute) Syncope and collapse (Acute) Chest pain Social History Feels Safe at Home: Yes Allergies Allergies Allergy/AdvReac Type Severity Reaction Status Date / Time No Known Allergies Allergy Mild Unverified 06/03/15 21:19 Home Meds Home Medications Medication Instructions Recorded Confirmed Citalopram (Celexa *) 10 mg PO DAILY ##0 10/28/10 Lisinopril (Zestril) 10 mg PO DAILY ##0 10/28/10 Metoprolol Succ (Toprol Xl) 25 mg PO DAILY ##30 10/28/10 (Toprol-Xl) ASPIRIN (CHANDAN ASPIRIN EC LOW DOSE) 1 tab PO DAILY 30 days #30 tabs 06/03/15 HYDROCHLOROTHYZIDE 1 tab PO DAILY ##0 06/03/15 MULTIPLE VITAMINS W/ MINERALS 1 tab PO DAILY ##0 06/03/15 (WOMENS 50+ MULTI VITAMIN) Results & Data (ED) Vital Signs Vital Signs - 24 hr 04/24/24 16:25 04/24/24 16:25 04/24/24 17:12 Temperature 36.4 C L Temperature Source Oral Pulse Rate 58 L 60 Pulse Rate from SpO2 Sensor 61 Respiratory Rate 18 17 Respiratory Effort / Characteristics Non-Labored Spontaneous Respiratory Depth Normal Respiratory Pattern Regular Blood Pressure 98/55 L 106/66 Blood Pressure Mean 69 79 Pulse Oximetry 86 L 95 98 Oxygen Delivery Method Room Air Nasal Cannula Nasal Cannula Oxygen Flow Rate 2 2 Sepsis Recent Fever Within 48 Hours No Sepsis New/Unexplained Change in Mental Status No Sepsis Action Taken by Nursing No Action Required 04/24/24 17:22 04/24/24 17:36 04/24/24 17:57 Temperature Temperature Source Pulse Rate 56 L 60 66 Pulse Rate from SpO2 Sensor 60 68 Respiratory Rate 15 15 Respiratory Effort / Characteristics Respiratory Depth Respiratory Pattern Blood Pressure 109/74 Blood Pressure Mean 85 Pulse Oximetry 97 97 Oxygen Delivery Method Oxygen Flow Rate Sepsis Recent Fever Within 48 Hours Sepsis New/Unexplained Change in Mental Status Sepsis Action Taken by Nursing 04/24/24 18:12 04/24/24 18:16 04/24/24 18:20 Temperature Temperature Source Pulse Rate 63 Pulse Rate from SpO2 Sensor 64 Respiratory Rate 11 L Respiratory Effort / Characteristics Respiratory Depth Respiratory Pattern Blood Pressure 109/74 Blood Pressure Mean 85 Pulse Oximetry 97 87 L 100 Oxygen Delivery Method Room Air Nasal Cannula Oxygen Flow Rate Sepsis Recent Fever Within 48 Hours Sepsis New/Unexplained Change in Mental Status Sepsis Action Taken by Nursing 04/24/24 18:36 04/24/24 18:54 04/24/24 19:09 Temperature Temperature Source Pulse Rate 82 69 68 Pulse Rate from SpO2 Sensor 83 70 67 Respiratory Rate 19 17 17 Respiratory Effort / Characteristics Respiratory Depth Respiratory Pattern Blood Pressure 111/73 96/54 L Blood Pressure Mean 85 68 Pulse Oximetry 90 98 99 Oxygen Delivery Method Oxygen Flow Rate Sepsis Recent Fever Within 48 Hours Sepsis New/Unexplained Change in Mental Status Sepsis Action Taken by Nursing Laboratory Data 04/24/24 17:46 04/24/24 17:00 Lab Results 04/24/24 04/24/24 Range/Units 17:00 17:46 WBC 9.77 (4.8-10.8) K/ul RBC 4.41 (4.20-5.40) M/uL Hgb 13.0 (12.0-16.0) g/dl Hct 39.6 (37.0-47.0) % MCV 89.8 (80.0-100.0) fL MCH 29.5 (25.0-34.0) pg MCHC 32.8 (32.0-36.0) g/dL RDW Std Deviation 41.9 (36.4-46.3) fL RDW Coeff of Radha 12.7 (11.5-14.5) % Plt Count 204 (130-400) K/uL MPV 10.8 (9.4-12.4) fL Immature Gran % (Auto) 0.2 % Neut % (Auto) 84.2 % Lymph % (Auto) 10.0 % [place] % (Auto) 5.0 % Eos % (Auto) 0.2 % Baso % (Auto) 0.4 % Neut # (Auto) 8.22 H (1.40-6.50) K/uL Lymph # (Auto) 0.98 L (1.20-3.40) K/uL [place] # (Auto) 0.49 (0.11-0.59) K/uL Eos # (Auto) 0.02 (0.00-0.50) K/uL Baso # (Auto) 0.04 (0.00-0.20) K/uL Immature Gran # (Auto) 0.02 (0.01-0.20) K/uL PT 10.9 (9.0-12.0) Seconds INR 1.0 (0.9-1.1) Sodium 137 (136-145) mmol/L Potassium 3.6 (3.5-5.1) mmol/L Chloride 104 (98-107) mmol/L Carbon Dioxide 26 (21-32) mmol/L Anion Gap 7 (3-11) BUN 19 (6-23) mg/dl Creatinine 0.93 (0.6-1.2) mg/dl Est Cr Clr Drug Dosing 64.6 ml/min eGFR 67.79 BUN/Creatinine Ratio 20.4 H (10-20) Glucose 113 H (70-99(Fasting)) mg/dl Lactate 2.1 H* (0.4-2.0) mmol/L Calcium 9.1 (8.6-10.3) mg/dl Magnesium 1.9 (1.7-2.4) mg/dl Total Bilirubin 0.7 (0.2-1.0) mg/dl AST 28 (13-39) U/L ALT 27 (7-52) U/L Alkaline Phosphatase 54 (34-104) U/L Troponin I High Sens 3.3 (0-14) pg/ml B-Natriuretic Peptide 44 (0-100) pg/ml Total Protein 6.7 (6.0-8.3) gm/dl Albumin 4.0 (3.4-5.0) gm/dl Globulin 2.7 (2.5-4.0) gm/dl Albumin/Globulin Ratio 1.5 (0.9-2) Lipase 38 (11-82) U/L Ethyl Alcohol mg/dL 53.3 H (<10.0) mg/dl Administered Medications Discontinued Medications Ioversol (Optiray 320 125ml) 117 ml IV ONCE ONE Stop: 04/24/24 18:24 Last Admin: 04/24/24 18:23 Dose: 117 ml Documented By: EDK Imaging Data Radiologist's Impression: Chest X-Ray 04/24/24 16:16 XR chest 1V portable CLINICAL HISTORY: hypotension COMPARISON STUDY: Chest radiograph and chest CT June 03, 2015. FINDINGS: Lung volumes are normal. Left basilar densities favor atelectasis. There is no pneumothorax or pleural effusion. Cardiac size is normal. Mediastinal contours are normal. There is no evidence for pulmonary edema. IMPRESSION: No acute cardiopulmonary findings. ACT 112: Negative or not required by law. Electronically signed by: Bk Santiago M.D. 04/24/2024 4:48 PM Chest CTA 04/24/24 16:37 CT ANGIOGRAPHY OF THE CHEST, PULMONARY EMBOLUS PROTOCOL CLINICAL HISTORY: PE; syncope; hypotension; hypoxic COMPARISON STUDY: Chest CT June 03, 2015. Chest radiograph performed earlier today. TECHNIQUE: Following IV administration of 117 mL of Optiray, helical axial images of the chest were obtained utilizing the pulmonary embolus protocol. Maximal intensity projections and sagittal and coronal reformats were viewed on an independent 3D workstation. IV contrast was administered without complication. Automated exposure control was utilized for the study. A dose lowering technique was utilized adhering to the principles of ALARA. CT DOSE: 1666.91 mGy.cm FINDINGS: No pulmonary emboli are identified. There is no thoracic aortic dissection. The size of the heart is normal. No enlarged axillary, mediastinal or hilar lymph nodes are present. There is no pneumothorax or pleural effusion. There is moderate left lower lobe airspace opacity. There are mild alveolar opacities within the right lower lobe as well as the right middle lobe and lingula. A circumscribed 9 mm right middle lobe nodule on image 104 is present. No acute fractures are identified within visualized portions of the bony thorax. The gallbladder is surgically absent. IMPRESSION: 1. No pulmonary emboli identified. 2. Lower lung alveolar opacities, greatest within the left lower lobe. The findings favor pneumonia. A follow-up chest CT in 3 months to ensure resolution is recommended. 3. Circumscribed 9 mm right middle lobe nodule which is indeterminate and should be assessed on follow-up CT. ACT 112: Negative or not required by law. Electronically signed by: Bk Santiago M.D. 04/24/2024 6:[address] 04/24/24 16:37 CT OF THE HEAD WITHOUT CONTRAST CLINICAL HISTORY: Syncope. COMPARISON STUDY: No previous studies for comparison. TECHNIQUE: Helical axial images of the head were obtained without IV contrast. Automated exposure control was utilized for the study. A dose lowering technique was utilized adhering to the principles of ALARA. FINDINGS: No acute intracranial hemorrhage, midline shift or mass effect is present. The ventricular system is unremarkable. The basal cisterns are patent. No extra-axial collections are present. There are no findings to suggest acute dural sinus thrombosis or acute territorial infarct. No significant calvarial abnormalities are present. Visualized portions of the sinuses and mastoid air cells are clear. A few calcifications along the falx and left tentorium are of no significance. IMPRESSION: No acute intracranial findings. ACT 112: Negative or not required by law. Electronically signed by: Bk Santiago M.D. 04/24/2024 6:42 PM Discharge Plan Visit Data Chief Complaint: Hypotension Stated Complaint: HYPOTENSIVE ED Provider: Chacha Cedeno Discharge Problem: Syncope and collapse, Acute hypoxemic respiratory failure, Pneumonia, Elevated lactic acid level Forms Stand Alone Forms: [facility] [employer] Prescriptions Prescriptions: No Action Citalopram (Celexa *) 10 MG tablet 10 mg PO DAILY Qty: 0 Lisinopril (Zestril) 10 MG tablet 10 mg PO DAILY Qty: 0 Metoprolol Succ (Toprol Xl) (Toprol-Xl) 25 MG [id number] 25 mg PO DAILY Qty: 30 ASPIRIN (CHANDAN ASPIRIN EC LOW DOSE) 81 MG tablet 1 tab PO DAILY 30 Days Qty: 30 HYDROCHLOROTHYZIDE 1 tab PO DAILY Qty: 0 MULTIPLE VITAMINS W/ MINERALS (WOMENS 50+ MULTI VITAMIN) 1 TAB tablet 1 tab PO DAILY Qty: 0 Referrals Referrals: El Nunez DO [Outside Practitioners] -
--- NOTE | 2024-04-24 16:49 | XRay Report ---
XR chest 1V portable CLINICAL HISTORY: hypotension COMPARISON STUDY: Chest radiograph and chest CT June 03, 2015. FINDINGS: Lung volumes are normal. Left basilar densities favor atelectasis. There is no pneumothorax or pleural effusion. Cardiac size is normal. Mediastinal contours are normal. There is no evidence f or pulmonary edema. IMPRESSION: No acute cardiopulmonary findings. ACT 112: Negative or not required by law. Electronically signed by: Bk Santiago M.D. 04/24/2024 4:48 PM
[2024-04-24 17:29] LABS: Albumin Globulin Ratio 1.5 (0.9-2); BUN Creatinine Ratio 20.4 (10-20); Bilirubin,Total 0.7 mg/dl (0.2-1.0); Calcium 9.1 mg/dl (8.6-10.3); Creatinine Clr Calc Pharmacy 64.6 ml/min; Globulin 2.7 gm/dl (2.5-4.0); Magnesium 1.9 mg/dl (1.7-2.4); Potassium 3.6 mmol/L (3.5-5.1); Total Protein 6.7 gm/dl (6.0-8.3)
[2024-04-24 17:36] LABS: Troponin I High Sensitivity 3.3 pg/ml (0-14)
[2024-04-24 17:52] LABS: Prothrombin Time 10.9 Seconds (9.0-12.0)
[2024-04-24 18:09] LABS: Basophils # (auto) 0.04 K/uL (0.00-0.20); Basophils % (auto) 0.4 %; Eosinophils # (auto) 0.02 K/uL (0.00-0.50); Eosinophils % (auto) 0.2 %; Hematocrit (blood only) 39.6 % (37.0-47.0); Immature Granulocytes # (auto) 0.02 K/uL (0.01-0.20); Immature Granulocytes % (auto) 0.2 %; Lymphocytes # (auto) 0.98 K/uL (1.20-3.40); Mean Corpuscular Hemoglobin 29.5 pg (25.0-34.0); Mean Corpuscular Hgb Conc 32.8 g/dL (32.0-36.0); Mean Corpuscular Volume 89.8 fL (80.0-100.0); Mean Platelet Volume 10.8 fL (9.4-12.4); Monocytes # (auto) 0.49 K/uL (0.11-0.59); Neutrophils # (auto) 8.22 K/uL (1.40-6.50); Neutrophils % (auto) 84.2 %; Platelet Count 204 K/uL (130-400); RDW Coefficient of Variation 12.7 % (11.5-14.5); RDW Standard Deviation 41.9 fL (36.4-46.3); Red Blood Count 4.41 M/uL (4.20-5.40); White Blood Count 9.77 K/ul (4.8-10.8)
[2024-04-24] MEDS: OPTIRAY 320 125ml IV ONE (18:23)
--- NOTE | 2024-04-24 18:44 | CT Scan Report ---
CT OF THE HEAD WITHOUT CONTRAST CLINICAL HISTORY: Syncope. COMPARISON STUDY: No previous studies for comparison. TECHNIQUE: Helical axial images of the head were obtained without IV contrast. Automated exposure con trol was utilized for the study. A dose lowering technique was utilized adhering to the principles o f ALARA. FINDINGS: No acute intracranial hemorrhage, midline shift or mass effect is present. The ventricular system is unremarkable. The basal cisterns are patent. No extra-axial collections are present. There are no findings to suggest acute dural sinus thrombosis or acute territorial infarct. No significant calvarial abnormalities are present. Visualized portions of the sinuses and mastoid air cells are mara ar. A few calcifications along the falx and left tentorium are of no significance. IMPRESSION: No acute intracranial findings. ACT 112: Negative or not required by law. Electronically signed by: Bk Santiago M.D. 04/24/2024 6:42 PM
--- NOTE | 2024-04-24 18:52 | CT Scan Report ---
CT ANGIOGRAPHY OF THE CHEST, PULMONARY EMBOLUS PROTOCOL CLINICAL HISTORY: PE; syncope; hypotension; hypoxic COMPARISON STUDY: Chest CT June 03, 2015. Chest radiograph performed earlier today. TECHNIQUE: Following IV administration of 117 mL of Optiray, helical axial images of the chest were o btained utilizing the pulmonary embolus protocol. Maximal intensity projections and sagittal and cor onal reformats were viewed on an independent 3D workstation. IV contrast was administered without co mplication. Automated exposure control was utilized for the study. A dose lowering technique was ut ilized adhering to the principles of ALARA. CT DOSE: 1666.91 mGy.cm FINDINGS: No pulmonary emboli are identified. There is no thoracic aortic dissection. The size of th e heart is normal. No enlarged axillary, mediastinal or hilar lymph nodes are present. There is no pn eumothorax or pleural effusion. There is moderate left lower lobe airspace opacity. There are mild al veolar opacities within the right lower lobe as well as the right middle lobe and lingula. A circums cribed 9 mm right middle lobe nodule on image 104 is present. No acute fractures are identified withi n visualized portions of the bony thorax. The gallbladder is surgically absent. IMPRESSION: 1. No pulmonary emboli identified. 2. Lower lung alveolar opacities, greatest within the left lower lobe. The findings favor pneumonia. A follow-up chest CT in 3 months to ensure resolution is recommended. 3. Circumscribed 9 mm right middle lobe nodule which is indeterminate and should be assessed on follo w-up CT. ACT 112: Negative or not required by law. Electronically signed by: kB Santiago M.D. 04/24/2024 6:50 PM
[2024-04-24] MEDS: SODIUM CHLORIDE 0.9% 1,000 ML IV ONE (19:51)
[2024-04-24] MEDS: cefTRIAXone SODIUM 2,000 MG/50 ML BAG IV STA (19:51)
[2024-04-24] MEDS: MAGNESIUM SULFATE / D5W 1 GM/100 ML BAG IV ONE (20:03)
[2024-04-24] MEDS: DOXYCYCLINE HYCLATE 100 MG in DEXTROSE 5% MINI-B 100 ML IV STA (20:36)
[2024-04-24] MEDS: LACTATED RINGER'S 1,000 ML IV ONE (21:02)
--- NOTE | 2024-04-24 21:12 | History & Physical Report ---
Date of Service April 24, 2024 Assessment & Plan (1) Acute hypoxemic respiratory failure: Plan: Secondary to aspiration pneumonia secondary to syncopal event No sepsis for now Syncope likely secondary to orthostasis Patient hypotensive upon arrival at the ER Rule out structural cardiac pathology Recent COVID-19 illness hyperlipidemia, on statin Rx Hyperglycemia rule out DM Admit to medical telemetry Supplemental O2 Unasyn followed by Augmentin IVF, hold patient's home HCTZ and lisinopril BP meds for now. TTE re: syncope Check hemoglobin A1c DVT prophylaxis. Lovenox subcu Full code Total critical care time was 40 minutes. Text document was generated using [employer] voice recognition software. It may contain grammatical or spelling errors. Kindly contact undersigned for clarification of any documentation item in question. History of Present Illness Chief Complaint: Syncope Primary Care Provider: Jaylen Mcwilliams MD History obtained from patient and records. Medical history significant for hypertension, hyperlipidemia, GERD, anxiety/mood disorder. Last confinement 2014 for chest pain related to anxiety/stress. Negative nuclear stress test. Recent COVID-19 illness 2 weeks ago. No cough or SOB symptoms. Illness resolved without consultations or antibiotic/antiviral Rx. Patient was watching the football game at the stadium today when she suddenly slumped over her seat and passed out. Patient remembers feeling lightheaded prior to event. No witnessed GTC seizures or incontinence. Patient had subsequent emesis. Some SOB without cough symptoms. She thinks he may have aspirated. SBP noted to be low at the stadium. O2 sats later noted to be 80s. SBP 90s upon arrival at the ER. Ceftriaxone and doxycycline administered at the ER. Medical History as above Surgical History : Cholecystectomy, partial hysterectomy, appendectomy Family History : Heart disease, skin cancer Personal/Social history : Non-smoker, occasional EtOH intake Allergies Allergy/AdvReac Type Severity Reaction Status Date / Time No Known Allergies Allergy Mild Unverified 06/03/15 21:19 Home Medications Medication Instructions Recorded Confirmed Type aspirin 81 mg chewable tablet 81 mg PO DAILY 30 days #30 tabs 06/03/15 04/24/24 History citalopram 40 mg tablet 40 mg PO QPM 04/24/24 04/24/24 History hydrochlorothiazide 25 mg tablet 25 mg PO DAILY 04/24/24 04/24/24 History lisinopril 40 mg tablet 40 mg PO BID 04/24/24 04/24/24 History metoprolol tartrate 25 mg tablet 25 mg PO BID 04/24/24 04/24/24 History rosuvastatin 20 mg tablet 20 mg PO QAM 04/24/24 04/24/24 History Past Med/Surg History Problem List (Updated 04/24/24 @ 19:26 by Chacha Cedeno MD) Elevated lactic acid level (Acute) Pneumonia (Acute) Acute hypoxemic respiratory failure (Acute) Syncope and collapse (Acute) Chest pain Social History Smoking Status: Never smoker Hx Alcohol Use: Yes Hx Substance Use: No Preferred Language: Macedonian Communication Ability: Effective Travel Registered Nurse Nicu Required: No Current Living Situation: Spouse Current Living Situation Comment: home w/ Feels Safe at Home: Yes Safety Concerns: Feels Safe At This Time Assistive Devices: Glasses and Hearing Aid - Bilateral Review of Systems Review of Systems: As per HPI, all other systems reviewed and negative Physical Exam Physical Exam: GENERAL: Comfortable, pleasant, no respiratory distress SKIN: Normal color, warm HEENT: Bespectacled, [place] palpebral conjunctivae, no ptosis, dry buccal mucosa, nasal cannula in place NECK : Supple, no tenderness CHEST : Decreased breath sounds, no tenderness HEART : RRR, no obvious murmurs ABDOMEN: Some distention, nontender EXTREMITIES : No LE swelling/tenderness, no other conspicuous deformities noted NEUROLOGIC : Coherent, no facial asymmetry, no other gross focality Results & Data Results & Data Vital Signs (Past 12 Hours) Vital Signs Temp Pulse Resp BP Pulse Ox O2 Del Method O2 Flow Rate 04/24/24 20:00 22 99 Nasal Cannula 2 04/24/24 19:09 68 17 96/54 L 99 04/24/24 18:54 69 17 111/73 98 04/24/24 18:36 82 19 90 04/24/24 18:20 100 Nasal Cannula 04/24/24 18:16 87 L Room Air 04/24/24 18:12 63 11 L 109/74 97 04/24/24 17:57 66 15 109/74 97 04/24/24 17:36 60 15 97 04/24/24 17:22 56 L 04/24/24 17:12 60 17 106/66 98 Nasal Cannula 2 04/24/24 16:25 95 Nasal Cannula 2 04/24/24 16:25 36.4 C L 58 L 18 98/55 L 86 L Room Air Laboratory Results Laboratory Results WBC 9.77 K/ul (4.8-10.8) 04/24/24 17:46 RBC 4.41 M/uL (4.20-5.40) 04/24/24 17:46 Hgb 13.0 g/dl (12.0-16.0) 04/24/24 17:46 Hct 39.6 % (37.0-47.0) 04/24/24 17:46 MCV 89.8 fL (80.0-100.0) 04/24/24 17:46 MCH 29.5 pg (25.0-34.0) 04/24/24 17:46 MCHC 32.8 g/dL (32.0-36.0) 04/24/24 17:46 RDW Std Deviation 41.9 fL (36.4-46.3) 04/24/24 17:46 RDW Coeff of Radha 12.7 % (11.5-14.5) 04/24/24 17:46 Plt Count 204 K/uL (130-400) 04/24/24 17:46 MPV 10.8 fL (9.4-12.4) 04/24/24 17:46 Immature Gran % (Auto) 0.2 % 04/24/24 17:46 Neut % (Auto) 84.2 % 04/24/24 17:46 Lymph % (Auto) 10.0 % 04/24/24 17:46 Dickenson % (Auto) 5.0 % 04/24/24 17:46 Eos % (Auto) 0.2 % 04/24/24 17:46 Baso % (Auto) 0.4 % 04/24/24 17:46 Neut # (Auto) 8.22 K/uL (1.40-6.50) H 04/24/24 17:46 Lymph # (Auto) 0.98 K/uL (1.20-3.40) L 04/24/24 17:46 Dickenson # (Auto) 0.49 K/uL (0.11-0.59) 04/24/24 17:46 Eos # (Auto) 0.02 K/uL (0.00-0.50) 04/24/24 17:46 Baso # (Auto) 0.04 K/uL (0.00-0.20) 04/24/24 17:46 Immature Gran # (Auto) 0.02 K/uL (0.01-0.20) 04/24/24 17:46 PT 10.9 Seconds (9.0-12.0) 04/24/24 17:00 INR 1.0 (0.9-1.1) 04/24/24 17:00 Sodium 137 mmol/L (136-145) 04/24/24 17:00 Potassium 3.6 mmol/L (3.5-5.1) 04/24/24 17:00 Chloride 104 mmol/L (98-107) 04/24/24 17:00 Carbon Dioxide 26 mmol/L (21-32) 04/24/24 17:00 Anion Gap 7 (3-11) 04/24/24 17:00 BUN 19 mg/dl (6-23) 04/24/24 17:00 Creatinine 0.93 mg/dl (0.6-1.2) 04/24/24 17:00 Est Cr Clr Drug Dosing 64.6 ml/min 04/24/24 17:00 eGFR 67.79 04/24/24 17:00 BUN/Creatinine Ratio 20.4 (10-20) H 04/24/24 17:00 Glucose 113 mg/dl (70-99(Fasting)) H 04/24/24 17:00 Lactate 1.6 mmol/L (0.4-2.0) 04/24/24 19:50 Calcium 9.1 mg/dl (8.6-10.3) 04/24/24 17:00 Magnesium 1.9 mg/dl (1.7-2.4) 04/24/24 17:00 Total Bilirubin 0.7 mg/dl (0.2-1.0) 04/24/24 17:00 AST 28 U/L (13-39) 04/24/24 17:00 ALT 27 U/L (7-52) 04/24/24 17:00 Alkaline Phosphatase 54 U/L (34-104) 04/24/24 17:00 Troponin I High Sens 3.3 pg/ml (0-14) 04/24/24 17:00 B-Natriuretic Peptide 44 pg/ml (0-100) 04/24/24 17:46 Total Protein 6.7 gm/dl (6.0-8.3) 04/24/24 17:00 Albumin 4.0 gm/dl (3.4-5.0) 04/24/24 17:00 Globulin 2.7 gm/dl (2.5-4.0) 04/24/24 17:00 Albumin/Globulin Ratio 1.5 (0.9-2) 04/24/24 17:00 Lipase 38 U/L (11-82) 04/24/24 17:00 Procalcitonin Cancelled 04/24/24 19:23 Ethyl Alcohol mg/dL 53.3 mg/dl (<10.0) H 04/24/24 17:00 Impressions Chest X-Ray 04/24/24 16:16 XR chest 1V portable CLINICAL HISTORY: hypotension COMPARISON STUDY: Chest radiograph and chest CT June 03, 2015. FINDINGS: Lung volumes are normal. Left basilar densities favor atelectasis. There is no pneumothorax or pleural effusion. Cardiac size is normal. Mediastinal contours are normal. There is no evidence for pulmonary edema. IMPRESSION: No acute cardiopulmonary findings. ACT 112: Negative or not required by law. Electronically signed by: Bk Santiago M.D. 04/24/2024 4:48 PM Chest CTA 04/24/24 16:37 CT ANGIOGRAPHY OF THE CHEST, PULMONARY EMBOLUS PROTOCOL CLINICAL HISTORY: PE; syncope; hypotension; hypoxic COMPARISON STUDY: Chest CT June 03, 2015. Chest radiograph performed earlier today. TECHNIQUE: Following IV administration of 117 mL of Optiray, helical axial images of the chest were obtained utilizing the pulmonary embolus protocol. Maximal intensity projections and sagittal and coronal reformats were viewed on an independent 3D workstation. IV contrast was administered without complication. Automated exposure control was utilized for the study. A dose lowering technique was utilized adhering to the principles of ALARA. CT DOSE: 1666.91 mGy.cm FINDINGS: No pulmonary emboli are identified. There is no thoracic aortic dissection. The size of the heart is normal. No enlarged axillary, mediastinal or hilar lymph nodes are present. There is no pneumothorax or pleural effusion. There is moderate left lower lobe airspace opacity. There are mild alveolar opacities within the right lower lobe as well as the right middle lobe and lingu la. A circumscribed 9 mm right middle lobe nodule on image 104 is present. No acute fractures are identified within visualized portions of the bony thorax. The gallbladder is surgically absent. IMPRESSION: 1. No pulmonary emboli identified. 2. Lower lung alveolar opacities, greatest within the left lower lobe. The findings favor pneumonia. A follow-up chest CT in 3 months to ensure resolution is recommended. 3. Circumscribed 9 mm right middle lobe nodule which is indeterminate and should be assessed on follow-up CT. ACT 112: Negative or not required by law. Electronically signed by: Bk Santiago M.D. 04/24/2024 6:[address] 04/24/24 16:37 CT OF THE HEAD WITHOUT CONTRAST CLINICAL HISTORY: Syncope. COMPARISON STUDY: No previous studies for comparison. TECHNIQUE: Helical axial images of the head were obtained without IV contrast. Automated exposure control was utilized for the study. A dose lowering technique was utilized adhering to the principles of ALARA. FINDINGS: No acute intracranial hemorrhage, midline shift or mass effect is present. The ventricular system is unremarkable. The basal cisterns are patent. No extra-axial collections are present. There are no findings to suggest acute dural sinus thrombosis or acute territorial infarct. No significant calvarial abnormalities are present. Visualized portions of the sinuses and mastoid air cells are clear. A few calcifications along the falx and left tentorium are of no significance. IMPRESSION: No acute intracranial findings. ACT 112: Negative or not required by law. Electronically signed by: Bk Santiago M.D. 04/24/2024 6:42 PM Diagnostic Findings EKG as per my interpretation : Rate 55, sinus bradycardia, normal axis, no ischemia
[2024-04-24] MEDS ORDERED: PROMETHAZINE 6.25 MG/50.25 ML BAG IV PRN (21:14)
[2024-04-24] MEDS ORDERED: ACETAMINOPHEN 325 MG TAB PO PRN (21:14)
[2024-04-24 21:34] LABS: Base Excess VBG -1.1 mEq/L; HCO3 VBG 25 mmol/L; Oxygen Saturation VBG 60.1 %; PCO2 VBG 48 mmHg (38-50); PO2 VBG 36 mmHg; pH VBG 7.33 (7.36-7.41)
[2024-04-24] MEDS: AMPICILLIN/SULBACTAM SOD 3,000 MG/100 ML BAG IV ONE (22:44)
[2024-04-25 04:47] LABS: Appearance Urine Clear (Clear); Bacteria Urine Automated None Seen (None Seen); Bilirubin Urine Negative (Negative); Blood Urine Negative (Negative); Cast Urine Automated 0-2 /lpf (0-2); Color Urine Yellow; Epithelial Cell Urine Auto 0-2 /hpf (0-2); Glucose Urine UA Negative (Negative); Ketones Urine Negative (Negative); Leukocyte Esterase Urine Trace (Negative); Nitrite Urine Negative (Negative); Protein Urine Negative (Negative); RBC Urine Automated 0-2 /hpf (0-2); Specific Gravity Urine 1.014 (1.000-1.030); Urobilinogen Urine Negative (Negative); WBC Urine Automated 0-5 /hpf (0-5)
[2024-04-25 04:52] LABS: Basophils # (auto) 0.03 K/uL (0.00-0.20); Basophils % (auto) 0.3 %; Eosinophils # (auto) 0.01 K/uL (0.00-0.50); Eosinophils % (auto) 0.1 %; Hematocrit (blood only) 34.3 % (37.0-47.0); Hemoglobin 11.5 g/dl (12.0-16.0); Immature Granulocytes # (auto) 0.02 K/uL (0.01-0.20); Immature Granulocytes % (auto) 0.2 %; Lymphocytes # (auto) 1.84 K/uL (1.20-3.40); Lymphocytes % (auto) 20.8 %; Mean Corpuscular Hemoglobin 29.6 pg (25.0-34.0); Mean Corpuscular Hgb Conc 33.5 g/dL (32.0-36.0); Mean Corpuscular Volume 88.4 fL (80.0-100.0); Mean Platelet Volume 11.3 fL (9.4-12.4); Monocytes # (auto) 0.57 K/uL (0.11-0.59); Monocytes % (auto) 6.4 %; Neutrophils # (auto) 6.39 K/uL (1.40-6.50); Neutrophils % (auto) 72.2 %; Platelet Count 201 K/uL (130-400); RDW Coefficient of Variation 12.9 % (11.5-14.5); RDW Standard Deviation 41.8 fL (36.4-46.3); Red Blood Count 3.88 M/uL (4.20-5.40); White Blood Count 8.86 K/ul (4.8-10.8)
[2024-04-25 05:08] LABS: BUN Creatinine Ratio 18.8 (10-20); Calcium 8.8 mg/dl (8.6-10.3); Creatinine Clr Calc Pharmacy 87.1 ml/min; Potassium 3.8 mmol/L (3.5-5.1)
[2024-04-25 06:11] LABS: Adenovirus PCR Not Detected (NotDetected); Bordetella parapertussis PCR Not Detected (NotDetected); Bordetella pertussis PCR Not Detected (NotDetected); Chlamydia pneumoniae PCR Not Detected (NotDetected); Coronavirus 229E PCR Not Detected (NotDetected); Coronavirus CoV-2 (COVID19)PCR DETECTED (NotDetected); Coronavirus HKU1 PCR Not Detected (NotDetected); Coronavirus NL63 PCR Not Detected (NotDetected); Coronavirus OC43PCR Not Detected (NotDetected); Human Metapneumovirus PCR Not Detected (NotDetected); Influenza A PCR Not Detected (NotDetected); Influenza B PCR Not Detected (NotDetected); Mycoplasma pneumoniae PCR Not Detected (NotDetected); Parainfluenza Virus 1 PCR Not Detected (NotDetected); Parainfluenza Virus 2 PCR Not Detected (NotDetected); Parainfluenza Virus 3 PCR Not Detected (NotDetected); Parainfluenza Virus 4 PCR Not Detected (NotDetected); Respiratory Syncytial VirusPCR Not Detected (NotDetected); Rhinovirus/Enterovirus PCR Not Detected (NotDetected)
[2024-04-25 07:12] LABS: Estimated Average Glucose 120 mg/dl; Hemoglobin A1C 5.8 % (4.5-5.6)
[2024-04-25] MEDS: ASPIRIN 81 MG CHEW PO SCH (09:09)
[2024-04-25] MEDS: METOPROLOL TARTRATE 25 MG TAB PO SCH (09:09)
[2024-04-25] MEDS: AMOXICILLIN/CLAVULANATE 875 MG TAB PO SCH (09:09)
[2024-04-25] MEDS: ROSUVASTATIN CALCIUM 20 MG TAB PO SCH (10:34)
[2024-04-25] MEDS: ENOXAPARIN INJ 40 MG/0.4 ML SYR SQ SCH (10:34)
--- NOTE | 2024-04-25 14:18 | Electrocardiogram Report ---
Test Reason : Blood Pressure : */* mmHG Vent. Rate : 57 BPM Atrial Rate : 57 BPM P-R Int : 190 ms QRS Dur : 90 ms QT Int : 472 ms P-R-T Axes : 55 42 31 degrees QTcB Int : 459 ms Sinus bradycardia with Premature atrial complexes in a pattern of bigeminy Otherwise normal ECG When compared with ECG of 05-Jun-2015 07:00, Premature atrial complexes are now Present T wave amplitude has decreased in Anterior leads Confirmed by Mike Rutledge ([id number]) on 04/25/2024 2:18:12 PM Referred By: Confirmed By: Mike Rutledge
--- NOTE | 2024-04-25 15:37 | Hospitalist Progress Note ---
Date of Service April 25, 2024 Assessment & Plan (1) Acute hypoxemic respiratory failure: Plan: Secondary to aspiration pneumonia secondary to syncopal event No sepsis for now Denies any acute shortness of breath at rest and has been saturating normally on room air Received 1 dose of ceftriaxone and doxycycline Has been on Unasyn to cover possible aspiration Clinically much better and will change to oral Augmentin on discharge (2) Syncope and collapse: Plan: [place] the stadium most likely secondary to dehydration Not sure if he lost consciousness and no evidence of any seizure-like activity or incontinence No arrhythmias Echo of the heart showed- normal LV systolic function with EF 55 to 60%, nondilated cardiac chambers and no significant valvular pathology Will observe in telemetry unit (3) Pneumonia: Plan: Possible aspiration pneumonia (4) COVID-19: Plan: Recent history of COVID-19 virus infection Serological test is positive for COVID-19 virus this time No significant infiltration in the chest x-ray and saturating normally room air- does not require any treatment for COVID-19 virus infection Will check CRP Noted to have high blood sugar on admission Hemoglobin A1c is 5.8 Hyperlipidemia Continue statin DVT prophylaxis-subcu Lovenox CODE STATUS full Admission and Anticipated Discharge Date Admission Date: April 24, 2024 Subjective - 04/25/2024 The patient was seen and examined in emergency room Patient was watching football game at the stadium when he started suddenly slumped over the seat and passed out Has had emesis subsequently and shortness of breath with Has been feeling better since this morning Denies any chest pain and/or palpitation and no shortness of breath at rest Review of Systems Review of Systems: All systems reviewed and are unremarkable except as noted below Physical Exam Physical Exam: Sitting at the edge of the bed without any acute distress Constitutional: well developed, well nourished and + ill appearing Eyes: PERRL, conjunctivae normal, anicteric sclerae ENMT: external ear and nose normal, oropharynx normal Neck: trachea midline, no thyromegaly Respiratory: no respiratory distress Auscultation: + diminished lung sounds and + crackles ( bibasilar crackles) Cardiovascular: Rate/Rhythm: regular rate and regular rhythm; not tachycardic Heart Sounds: normal S1 and normal S2; no murmur Extremities: no edema Gastrointestinal (Abdomen): Inspection/Auscultation: normal bowel sounds; abdomen not distended Percussion/Palpation: abdomen soft; abdomen nontender Musculoskeletal: no acute arthritis involving any of the joint Neurologic: normal touch/pain/proprioception and moves all extremities; no focal motor deficits Lymphatic: no cervical or axillary lymphadenopathy Results & Data Results & Data Vital Signs (Past 12 Hours) Vital Signs Pulse Pulse Resp BP BP Pulse Ox O2 Del Method 04/25/24 15:09 81 20 111/65 94 Room Air 04/25/24 14:52 75 12 112/74 96 Nasal Cannula 04/25/24 11:39 79 12 109/65 98 Nasal Cannula 04/25/24 07:37 68 04/25/24 07:20 67 16 88/69 L 99 Nasal Cannula 04/25/24 07:00 73 17 88/69 L 97 04/25/24 05:00 67 19 113/71 97 04/25/24 04:04 121/66 O2 Flow Rate 04/25/24 15:09 04/25/24 14:52 3 04/25/24 11:39 3 04/25/24 07:37 04/25/24 07:20 04/25/24 07:00 04/25/24 05:00 04/25/24 04:04 Laboratory Results Short CBC 04/24/24 04/25/24 Range/Units 17:46 04:18 WBC 9.77 8.86 (4.8-10.8) K/ul Hgb 13.0 11.5 L (12.0-16.0) g/dl Hct 39.6 34.3 L (37.0-47.0) % Plt Count 204 201 (130-400) K/uL BMP 04/24/24 04/25/24 17:00 04:18 Sodium 137 139 Potassium 3.6 3.8 Chloride 104 106 Carbon Dioxide 26 28 BUN 19 13 Creatinine 0.93 0.69 Glucose 113 H 94 Calcium 9.1 8.8 Liver Function 04/24/24 Range/Units 17:00 Total Bilirubin 0.7 (0.2-1.0) mg/dl AST 28 (13-39) U/L ALT 27 (7-52) U/L Alkaline Phosphatase 54 (34-104) U/L Albumin 4.0 (3.4-5.0) gm/dl Urine 04/25/24 Range/Units 04:05 Urine Color Yellow Urine Appearance Clear (Clear) Urine pH 5.0 (4.5-7.5) Ur Specific [place] 1.014 (1.000-1.030) Urine Protein Negative (Negative) Urine Glucose (UA) Negative (Negative) Medications Administered Current Inpatient Medications Acetaminophen (Acetaminophen 325 Mg Tab) 650 mg PO QID PRN PRN Reason: pain/fever Stop: 05/24/24 21:13 Amoxicillin/Clavulanate Potassium (Amoxicillin/Clavulanate 875 Mg Tab) 1 tab PO BIDM [facility]; Protocol Stop: 05/02/24 07:59 Last Admin: 04/25/24 09:09 Dose: 1 tab Aspirin (Aspirin 81 Mg Chew) 81 mg PO DAILY [facility] Stop: 05/25/24 08:59 Last Admin: 04/25/24 09:09 Dose: Not Given Citalopram Hydrobromide (Citalopram 40 Mg Tab) 40 mg PO QPM [facility] Stop: 05/25/24 20:59 Enoxaparin Sodium (Enoxaparin Inj 40 Mg/0.4 Ml Syr) [facility] [place]: 05/25/24 08:59 Last Admin: 04/25/24 10:34 Dose: 40 mg Promethazine HCl (Phenergan) 6.25 mg in 50.25 mls @ 201 mls/hr IV Q6H PRN PRN Reason: Nausea And Vomiting Stop: 05/24/24 21:13 Metoprolol Tartrate (Metoprolol Tartrate 25 Mg Tab) 12.5 mg PO BID [facility] Stop: 05/25/24 08:59 Last Admin: 04/25/24 09:09 Dose: 12.5 mg Rosuvastatin Calcium (Rosuvastatin Calcium 20 Mg Tab) 20 mg PO QAM [facility] Stop: 05/25/24 08:59 Last Admin: 04/25/24 10:34 Dose: 20 mg
--- NOTE | 2024-04-25 16:10 | Hospitalist Progress Note ---
Date of Service April 25, 2024 Assessment & Plan (1) Acute hypoxemic respiratory failure: Plan: Secondary to aspiration pneumonia secondary to syncopal event No sepsis for now Denies any acute shortness of breath at rest and has been saturating normally on room air Received 1 dose of ceftriaxone and doxycycline Has been on Unasyn to cover possible aspiration Clinically much better and will change to oral Augmentin on discharge (2) Syncope and collapse: Plan: [place] the stadium most likely secondary to dehydration Not sure if he lost consciousness and no evidence of any seizure-like activity or incontinence No arrhythmias Echo of the heart showed- normal LV systolic function with EF 55 to 60%, nondilated cardiac chambers and no significant valvular pathology Will observe in telemetry unit (3) Pneumonia: Plan: Possible aspiration pneumonia (4) COVID-19: Plan: Recent history of COVID-19 virus infection Serological test is positive for COVID-19 virus this time No significant infiltration in the chest x-ray and saturating normally room air- does not require any treatment for COVID-19 virus infection Will check CRP Noted to have high blood sugar on admission Hemoglobin A1c is 5.8 Hyperlipidemia Continue statin DVT prophylaxis-subcu Lovenox CODE STATUS full Admission and Anticipated Discharge Date Admission Date: April 24, 2024 Subjective - 04/25/2024 The patient was seen and examined in emergency room Patient was watching football game at the stadium when he started suddenly slumped over the seat and passed out Has had emesis subsequently and shortness of breath with Has been feeling better since this morning Denies any chest pain and/or palpitation and no shortness of breath at rest Review of Systems Review of Systems: All systems reviewed and are unremarkable except as noted below Physical Exam Physical Exam: Sitting at the edge of the bed without any acute distress Constitutional: well developed, well nourished and + ill appearing Eyes: PERRL, conjunctivae normal, anicteric sclerae ENMT: external ear and nose normal, oropharynx normal Neck: trachea midline, no thyromegaly Respiratory: no respiratory distress Auscultation: + diminished lung sounds and + crackles ( bibasilar crackles) Cardiovascular: Rate/Rhythm: regular rate and regular rhythm; not tachycardic Heart Sounds: normal S1 and normal S2; no murmur Extremities: no edema Gastrointestinal (Abdomen): Inspection/Auscultation: normal bowel sounds; abdomen not distended Percussion/Palpation: abdomen soft; abdomen nontender Neurologic: normal touch/pain/proprioception and moves all extremities; no focal motor deficits Lymphatic: no cervical or axillary lymphadenopathy Results & Data Results & Data Vital Signs (Past 12 Hours) Vital Signs Pulse Pulse Resp BP BP Pulse Ox O2 Del Method 04/25/24 15:09 81 20 111/65 94 Room Air 04/25/24 14:52 75 12 112/74 96 Nasal Cannula 04/25/24 11:39 79 12 109/65 98 Nasal Cannula 04/25/24 07:37 68 04/25/24 07:20 67 16 88/69 L 99 Nasal Cannula 04/25/24 07:00 73 17 88/69 L 97 04/25/24 05:00 67 19 113/71 97 O2 Flow Rate 04/25/24 15:09 04/25/24 14:52 3 04/25/24 11:39 3 04/25/24 07:37 04/25/24 07:20 04/25/24 07:00 04/25/24 05:00
[2024-04-25] MEDS: CITALOPRAM 40 MG TAB PO SCH (21:16)
[2024-04-26 07:51] VITALS: BP 130/82; PULSE 75; RESP 18; TEMP 99.1; O2SAT 92
[2024-04-26 07:56] LABS: Basophils # (auto) 0.04 K/uL (0.00-0.20); Basophils % (auto) 0.7 %; Eosinophils # (auto) 0.09 K/uL (0.00-0.50); Eosinophils % (auto) 1.6 %; Hematocrit (blood only) 36.6 % (37.0-47.0); Hemoglobin 11.8 g/dl (12.0-16.0); Immature Granulocytes # (auto) 0.01 K/uL (0.01-0.20); Immature Granulocytes % (auto) 0.2 %; Lymphocytes # (auto) 1.25 K/uL (1.20-3.40); Lymphocytes % (auto) 22.8 %; Mean Corpuscular Hemoglobin 29.4 pg (25.0-34.0); Mean Corpuscular Hgb Conc 32.2 g/dL (32.0-36.0); Mean Platelet Volume 10.9 fL (9.4-12.4); Monocytes # (auto) 0.43 K/uL (0.11-0.59); Monocytes % (auto) 7.8 %; Neutrophils # (auto) 3.67 K/uL (1.40-6.50); Neutrophils % (auto) 66.9 %; Platelet Count 176 K/uL (130-400); RDW Standard Deviation 42.8 fL (36.4-46.3); Red Blood Count 4.02 M/uL (4.20-5.40); White Blood Count 5.49 K/ul (4.8-10.8)
[2024-04-26 08:11] LABS: BUN Creatinine Ratio 15.2 (10-20); C Reactive Protein 2.83 mg/dl (0-0.5); Creatinine Clr Calc Pharmacy 91.1 ml/min; Magnesium 1.6 mg/dl (1.7-2.4); Potassium 3.9 mmol/L (3.5-5.1)
--- NOTE | 2024-04-26 09:11 | Discharge Summary ---
Discharge Summary Date of Service April 26, 2024 Principal Dx & Hospital Course #1 = Principal Diagnosis (1) Syncope and collapse: (2) Orthostatic hypotension: (3) Acute hypoxemic respiratory failure: (4) Aspiration pneumonia: (5) Lung nodule: Right middle lobe, 9 mm, follow-up CT chest outpatient (6) Laboratory confirmed diagnosis of COVID-19: Plan Patient 64-year-old female presented to the emergency room after acute syncopal event at the football game. She was noted to be hypotensive with changing in position. Also patient had some nausea and vomiting and aspirated along with the syncopal event. Patient was admitted to the hospital. She was quickly titrated off oxygen. She was treated for presumed aspiration pneumonia. Patient's antihypertensive medications were held or greatly reduced. Her hydrochlorothiazide was discontinued. Patient states that she recently tested positive for COVID bout 3 weeks ago. Current testing is still positive and is indicating this previous infection but does not have an acute active infection. Ultimately patient probably was a little dehydrated being out in the warm weather. She also was on a diuretic which could contribute to her dehydration. Suffered an orthostatic hypotensive syncopal episode resulting vagal response with aspiration pneumonia. Patient is on room air. Lightheadedness and dizziness improved. Blood pressures improved. She can discharged home to follow-up with her outpatient providers. Notes For Next Care Provider Patient may need titration up of her blood pressure medication or resumption of her previous antihypertensive medication when her blood pressure improves and rebounds from this acute illness. Follow-up CT chest in approximately 6 weeks, follow-up pneumonia, follow-up right middle lobe lung nodule Medication Changes From Visit Lisinopril and hydrochlorothiazide discontinued Metoprolol dose decreased Admission HPI Per Admitting Provider History obtained from patient and records. Medical history significant for hypertension, hyperlipidemia, GERD, anxiety/mood disorder. Last confinement 2014 for chest pain related to anxiety/stress. Negative nuclear stress test. Recent COVID-19 illness 2 weeks ago. No cough or SOB symptoms. Illness resolved without consultations or antibiotic/antiviral Rx. Patient was watching the football game at the stadium today when she suddenly slumped over her seat and passed out. Patient remembers feeling lightheaded prior to event. No witnessed GTC seizures or incontinence. Patient had subsequent emesis. Some SOB without cough symptoms. She thinks he may have aspirated. SBP [place] to be low at the stadium. O2 sats later noted to be 80s. SBP 90s upon arrival at the ER. Ceftriaxone and doxycycline administered at the ER. Medical History as above Surgical History : Cholecystectomy, partial hysterectomy, appendectomy Family History : Heart disease, skin cancer Personal/Social history : Non-smoker, occasional EtOH intake Admission Exam Per Admitting Provider See H&P Discharge Exam Constitutional: Alert, nontoxic, no acute distress HEENT: Mucous membranes moist. Lungs: Clear to auscultation, decreased, no wheezes rales or rhonchi CV: S1-S2, regular Abdomen: Soft, nontender, nondistended Extremities: No significant edema Neuro: No focal deficits Psych: Cooperative, normal mood Updated Medication List Medication Instructions Recorded Confirmed Type aspirin 81 mg chewable tablet 81 mg PO DAILY 30 days #30 tabs 06/03/15 04/24/24 History citalopram 40 mg tablet 40 mg PO QPM 04/24/24 04/24/24 History hydrochlorothiazide 25 mg tablet 25 mg PO DAILY 04/24/24 04/24/24 History lisinopril 40 mg tablet 40 mg PO BID 04/24/24 04/24/24 History metoprolol tartrate 25 mg tablet 25 mg PO BID 04/24/24 04/24/24 History rosuvastatin 20 mg tablet 20 mg PO QAM 04/24/24 04/24/24 History amoxicillin 875 mg-potassium 1 tab PO BIDM 3 days #6 tabs 04/26/24 Rx clavulanate 125 mg tablet metoprolol tartrate 25 mg tablet 12.5 mg (1/2 x 25 mg) PO BID 30 04/26/24 Rx days #30 tabs Hospital Stay Data Consultations 04/24/24 19:20 ED Decision to Admit Stat Diagnostic Imagining Performed 04/24/24 16:37 CT for pulmonary embolism PE [CT angio chest PE protocol] Stat CT head/brain wo con Stat Reviewed imaging, laboratory and diagnostic studies. Pertinent findings as below. Hemoglobin 11.8, WBCs 5.4 Electrolytes all within normal range CT of the chest showed some lower lobe opacities. Also 9 mm right middle lobe nodule which will need follow-up CT Pending Results Patient Have Any Pending Studies at Discharge: No Discharge Instructions Given to Patient (Per Discharging Provider) May need to reintroduce hydrochlorothiazide for blood pressure control at some point or other medications for blood pressure control Total Time Total Time Spent Total Time Spent (In Minutes): 33
== END 2024-04-26 11:26 | disposition home or self-care (01) | DRG 312 ==
LOC: ED 16:11 → EDINP 21:13 → SUATTDRO 21:13 → 2N 04-26 00:16